=== PATIENT | female | born 1945 | race Caucasian/White ===

== ENCOUNTER → 2016-03-02 | Outpatient (CLI) | payer MEDICARE, BC ==
--- NOTE | 2016-03-02 15:16 | US ---
EXAMINATION TYPE: US venous doppler duplex LE LT DATE OF EXAM: 03/02/2016 2:38 PM COMPARISON: 11/04/2015 CLINICAL HISTORY: LLE I82.409 Thrombosis. SIDE PERFORMED: Left VESSELS IMAGED: External Iliac Vein (EIV) Common Femoral Vein Deep Femoral Vein Greater Saphenous Vein * Femoral Vein Popliteal Vein Small Saphenous Vein * Proximal Calf Veins (* superficial vessels) TECHNOLOGIST IMPRESSION: Left Leg: +Positive for DVT. Thready flow noted femoral vein upper extending into popliteal vein wit h partial compression noted, non-occlusive thrombus Preliminary results given to Karin at end of exam IMPRESSION: 1. Findings compatible with deep venous thrombosis left lower extremity femoral vein extending into t he popliteal vein.
== END | disposition home or self-care (01) ==
LOC: RADUSWWP 14:08
PROVIDERS: ATTEND Family Medicine
DX: I82.412 Acute embolism and thrombosis of left femoral vein (principal); I82.432 Acute embolism and thrombosis of left popliteal vein

== ENCOUNTER → 2016-07-08 | Outpatient (CLI) | payer MEDICARE, BC ==
--- NOTE | 2016-07-09 11:30 | MM ---
Reason for exam: screening (asymptomatic). Last mammogram was performed 2 years and 4 months ago. History: Patient is postmenopausal. Family history of breast cancer in paternal cousin. Physical Findings: A clinical breast exam by your physician is recommended on an annual basis and results should be correlated with mammographic findings. MG 3D Screening Mammo W/Cad Bilateral CC, MLO, and XCCL view(s) were taken. Prior study comparison: March 13, 2014, mammogram, performed at [facility]. October 07, 2012, mammogram, performed at [facility]. The breast tissue is heterogeneously dense. This may lower the sensitivity of mammography. No significant changes when compared with prior studies. ASSESSMENT: Benign, BI-RAD 2 RECOMMENDATION: Routine screening mammogram of both breasts in 1 year.
== END | disposition home or self-care (01) ==
LOC: RADMAMWWP 08:34
PROVIDERS: ATTEND Family Medicine
DX: Z12.31 Encounter for screening mammogram for malignant neoplasm of breast (principal)
CPT/HCPCS: 77063; G0202

== ENCOUNTER → 2016-07-23 | Outpatient (CLI) | payer MEDICARE, BC ==
--- NOTE | 2016-07-23 12:04 | US ---
EXAMINATION TYPE: US abdomen complete DATE OF EXAM: 07/23/2016 COMPARISON: NONE CLINICAL HISTORY: Ventral hernia without obstruction K43.9. RLQ pain x 1 month, history of cholecyste ctomy EXAM MEASUREMENTS: Liver Length: 14.0 cm Gallbladder Wall: surgically absent CBD: 0.4 cm Spleen: 11.1 cm Right Kidney: 9.9 x 5.2 x 4.5 cm Left Kidney: 8.9 x 4.7 x 5.3 cm Pancreas: obscured by overlying midline bowel gas Liver: scanned intercostally, limited by rib shadowing, otherwise wnl Gallbladder: surgically absent Evidence for sonographic Hastings's sign: no CBD: visualized portions wnl, limited by overlying bowel gas Spleen: wnl Right Kidney: 0.5cm echogenic focus mid pole Left Kidney: located in left pelvis, 1.4cm indeterminate area superior pole, multiple echogenic foci throughout with largest measuring 0.7cm Upper IVC: wnl Abd Aorta: wnl Scanned RLQ area of pain: no abnormality seen at this time IMPRESSION: 1. There is severe pelvic left kidney with multiple echogenic foci suggestive of multiple renal stone s but no hydronephrosis. 1.4 cm indeterminate lesion superior pole. 2. Postcholecystectomy. 3. Nonobstructing 5 mm right renal calculus
== END | disposition home or self-care (01) ==
LOC: RADUSWWP 10:15
PROVIDERS: ATTEND Family Medicine
DX: N20.0 Calculus of kidney (principal); N28.9 Disorder of kidney and ureter, unspecified; Z90.49 Acquired absence of other specified parts of digestive tract
CPT/HCPCS: 76700

== ENCOUNTER → 2016-08-24 | Outpatient (CLI) | payer MEDICARE, BC ==
--- NOTE | 2016-08-24 09:56 | XR ---
EXAMINATION TYPE: XR KUB DATE OF EXAM: 08/24/2016 COMPARISON: NONE HISTORY: Pain TECHNIQUE: Single supine KUB image of the abdomen is obtained FINDINGS: Small bowel demonstrates no evidence for dilatation or air fluid levels. Gas and fecal material is seen in non-distended colon. No convincing evidence for pneumoperitoneum. No unusual calcifications. The lung bases are clear. The osseous structures are intact. IMPRESSION: 1. Overall nonobstructive bowel gas pattern.
== END ==
LOC: RADXRMAIN 09:26
PROVIDERS: ATTEND Physician Assistant
DX: N20.0 Calculus of kidney (principal)
CPT/HCPCS: 74000

== ENCOUNTER → 2017-02-25 | Outpatient (CLI) | payer MEDICARE, BC ==
--- NOTE | 2017-02-25 15:11 | MR ---
EXAMINATION TYPE: MR shoulder LT wo con DATE OF EXAM: 02/25/2017 2:30 PM COMPARISON: NONE HISTORY: Left shoulder pain TECHNIQUE: Multiplanar multispin echo imaging of the left shoulder was performed. FINDINGS: Rotator cuff : Thickening and heterogeneity of the supraspinatus tendon compatible with chronic tendi nopathy. Partial intrasubstance and undersurface tear noted. No evidence for full-thickness tear or r etracted tear. Remaining constituents of the rotator cuff are intact. Bursa: No bursal effusion or thickening is seen. Musculature: There is no muscular tear, contusion, or atrophy. Acromioclavicular joint : Subacromial spurring with the lateral downsloping of the acromion resulting in moderate subacromial impingement. Mild AC joint arthropathy. Osseous structures : There are no fractures or regions of abnormal bone marrow signal intensity. Long biceps tendon : The biceps tendon is normally situated within the bicipital groove. No complete or partial biceps tendon tear is present. Glenohumeral Joint fluid : Small joint effusion noted. Cartilage and Bone : No focal hyaline cartilage defects are noted. No Hill-Sachs, reverse Hill-Sachs, or bony Bankart lesions are seen. Labrum : There are no SLAP or soft tissue Bankart lesions. No paralabral cysts are seen. OTHER FINDINGS : none IMPRESSION: 1. Thickening and heterogeneity of the supraspinatus tendon compatible with chronic tendinopathy. Par tial intrasubstance and undersurface tear noted. No full-thickness retracted tear. Moderate subacromi al impingement.
== END | disposition home or self-care (01) ==
LOC: RADMRIMAIN 13:35
PROVIDERS: ATTEND Family Medicine
DX: M75.102 Unspecified rotator cuff tear or rupture of left shoulder, not specified as traumatic (principal); M25.812 Other specified joint disorders, left shoulder

== ENCOUNTER → 2017-07-15 | Outpatient (CLI) | payer MEDICARE, BC ==
[~2017-07-15] MED LIST: DENOSUMAB 60 MG/ML 1 ML SYRINGE SQ ONE
[2017-07-15 10:21] VITALS: BP 119/71; PULSE 70; RESP 16; TEMP 97.7
== END | disposition home or self-care (01) ==
LOC: PROCWHC3 09:35
PROVIDERS: ATTEND Family Medicine
DX: M81.0 Age-related osteoporosis without current pathological fracture (principal)
CPT/HCPCS: 96372; J0897

== ENCOUNTER → 2017-08-26 | Outpatient (CLI) | payer MEDICARE, BC ==
--- NOTE | 2017-08-30 09:56 | MM ---
Reason for exam: screening (asymptomatic). Last mammogram was performed 1 year and 2 months ago. History: Patient is postmenopausal. Family history of breast cancer in paternal cousin. Physical Findings: A clinical breast exam by your physician is recommended on an annual basis and results should be correlated with mammographic findings. MG 3D Screening Mammo W/Cad Bilateral CC and MLO view(s) were taken. Prior study comparison: July 08, 2016, bilateral MG 3d screening mammo w/cad. March 13, 2014, mammogram, performed at [place]. The breast tissue is heterogeneously dense. This may lower the sensitivity of mammography. No suspicious abnormality. No significant changes when compared with prior studies. ASSESSMENT: Negative, BI-RAD 1 RECOMMENDATION: Routine screening mammogram of both breasts in 1 year.
== END | disposition home or self-care (01) ==
LOC: RADMAMWWP 09:42
PROVIDERS: ATTEND Family Medicine
DX: Z12.31 Encounter for screening mammogram for malignant neoplasm of breast (principal)
CPT/HCPCS: 77063; 77067

== ENCOUNTER → 2017-09-03 | Outpatient (CLI) | payer MEDICARE, BC ==
--- NOTE | 2017-09-03 15:27 | US ---
EXAMINATION TYPE: US kidneys/renal and bladder DATE OF EXAM: 09/03/2017 COMPARISON: US CLINICAL HISTORY: N39.0 UTI. EXAM MEASUREMENTS: Right Kidney: 10.2 x 4.2 x 5.2 cm Left Kidney: 8.5 x 4.6 x 3.9 cm Right Kidney: Lower lateral cyst measures 1.7 x 2.1 x 2.0 cm Left Kidney: Pelvic kidney, upper pole cyst measures 1.2 x 1.0 x 1.1 cm. Bladder: wnl Bilateral Jets seen: Yes There is no evidence for hydronephrosis at this point in time. No nephrolithiasis is seen. The urin monica bladder is anechoic. Bilateral ureteral jets are seen. IMPRESSION: 1. The previously seen indeterminate left renal lesion demonstrates increased through transmission on today's examination and appears as a simple cyst measuring up to 1.2 cm. 2. Right renal cyst. 3. Redemonstration of a left pelvic kidney. 4. No discrete abnormality within the urinary bladder. 5. The previously seen bilateral renal calculi are not well visualized on today's examination. No hyd ronephrosis of either kidney.
== END | disposition home or self-care (01) ==
LOC: RADUSWWP 14:42
PROVIDERS: ATTEND Family Medicine
DX: N28.1 Cyst of kidney, acquired (principal); Q63.2 Ectopic kidney
CPT/HCPCS: 76770

== ENCOUNTER → 2017-09-08 | Outpatient (CLI) | payer MEDICARE, BC ==
[2017-09-08 11:56] LABS: Magnesium 1.9 mg/dL (1.6-2.3)
== END | disposition home or self-care (01) ==
LOC: LABWHC1 11:17
PROVIDERS: ATTEND Nurse Practitioner Adult Health
DX: R25.2 Cramp and spasm (principal)
CPT/HCPCS: 36415; 82550; 83735; 85379

== ENCOUNTER → 2017-09-09 | Outpatient (CLI) | payer MEDICARE, BC ==
--- NOTE | 2017-09-09 15:36 | US ---
EXAMINATION TYPE: US venous doppler duplex LE LT DATE OF EXAM: 09/09/2017 9:44 AM COMPARISON: 03/02/2016 CLINICAL HISTORY: Left Lower Ext, Pain and Swelling R79.1. SIDE PERFORMED: Left TECHNIQUE: The lower extremity deep venous system is examined utilizing real time linear array sonog eugenio with graded compression, doppler sonography and color-flow sonography. VESSELS IMAGED: External Iliac Vein (EIV) Common Femoral Vein Deep Femoral Vein Greater Saphenous Vein * Femoral Vein Popliteal Vein Small Saphenous Vein * Proximal Calf Veins (* superficial vessels) Left Leg: Proximal femoral v only partially compressible. Flow is thready there. Chronic changes, se en previously as well. Results phoned to Damir Reinoso NP immediately following exam. IMPRESSION: 1. Chronic left lower extremity venous thrombosis within the proximal femoral vein.
== END | disposition home or self-care (01) ==
LOC: RADUSWWP 09:03
PROVIDERS: ATTEND Family Medicine
DX: I82.512 Chronic embolism and thrombosis of left femoral vein (principal)

== ENCOUNTER → 2017-09-14 | Outpatient (CLI) | payer MEDICARE, BC ==
--- NOTE | 2017-09-14 16:30 | XR ---
EXAMINATION TYPE: XR ribs RT DATE OF EXAM: 09/14/2017 COMPARISON: None HISTORY: Pleural dyspnea TECHNIQUE: 2 view right ribs FINDINGS: No displaced fractures are evident. There is an old fracture of the fourth posterior latera l rib. Costochondral cartilage calcification is present. IMPRESSION: 1. No acute osseous abnormality evident.
== END | disposition home or self-care (01) ==
LOC: RADXRMAIN 14:30
PROVIDERS: ATTEND Family Medicine
DX: R07.81 Pleurodynia (principal)

== ENCOUNTER → 2017-10-05 | Outpatient (CLI) | payer MEDICARE, BC ==
--- NOTE | 2017-10-05 10:26 | MR ---
EXAMINATION TYPE: MR lspine/sacrum wo con DATE OF EXAM: 10/05/2017 COMPARISON: CT abdomen pelvis dated 11/13/2015 HISTORY: Pain TECHNIQUE: Multiplanar, multisequence imaging of the lumbar spine is performed without IV contrast. FINDINGS: There is a spinal curvature present. Multilevel spondylosis is present with endplate discog enic marrow signal change. Loss of disc height and signal is greatest at L1-2, associated vacuum phen omenon. Mild anterior wedging is present at T12, there is resultant accentuation of kyphosis, lumbar spine shows accentuated lordosis. The conus is at T12-L1 shows an unremarkable appearance. L5-S1: Minimal posterior broad-based disc bulge is noted, no significant central stenosis or foramina l encroachment. There is facet arthropathy change. L4-5: Posterior broad-based disc bulge causes minimal anterior mass effect on the thecal sac. There i s no significant foraminal encroachment or central stenosis. There is some facet arthropathy with hyp ertrophy of the ligamentum flavum causing some posterior lateral mass effect on the thecal sac. L3-4: Posterior broad-based disc bulge causes mild anterior mass effect on the thecal sac. There is s ome mild facet arthropathy. No significant foraminal encroachment or central stenosis. L2-3: Minimal retrolisthesis L2 on L3. Facet arthropathy with fragility ligamentum flavum causes some posterior lateral mass effect on the thecal sac. Circumferential extension endplate disc complex res ults in some foraminal encroachment on the right. L1-2: Posterior broad-based disc bulge causes minimal anterior mass effect sac. No significant centra l stenosis or foraminal encroachment. Incidental note made of a pelvic kidney on the left. Cortical cysts associated with the right kidney midpole measuring 8 mm, laterally at the lower pole measuring approximately 2 cm. Retroaortic left re nal vein is noted. IMPRESSION: Degenerative disc disease, facet arthropathy, scoliosis and additional findings above. No significant spinal stenosis. Sacrum MRI: Patient's pelvic kidney shows associated cystic change and is somewhat dysmorphic but inc ompletely evaluated. Possible hydrosalpinx noted the right fallopian tube. Suspect some possible smal l fibroid associated with the lower uterine segment, probable nabothian cyst. Sacrum shows normal marrow signal change. Sacroiliac joints are intact, there is no significant ankyl osis, degenerative change, erosion evident. IMPRESSION: Findings in the pelvis as described. Pelvic kidney.
== END | disposition home or self-care (01) ==
LOC: RADMRIMAIN 06:34
PROVIDERS: ATTEND Nurse Practitioner Adult Health
DX: M51.27 Other intervertebral disc displacement, lumbosacral region (principal); M51.36 Other intervertebral disc degeneration, lumbar region; M43.16 Spondylolisthesis, lumbar region; M47.816 Spondylosis without myelopathy or radiculopathy, lumbar region; M46.97 Unspecified inflammatory spondylopathy, lumbosacral region; M41.86 Other forms of scoliosis, lumbar region; G89.29 Other chronic pain; M54.9 Dorsalgia, unspecified
CPT/HCPCS: 72148; 72195

== ENCOUNTER → 2018-01-12 | Outpatient (CLI) | payer MEDICARE, BC ==
[2018-01-12 12:35] LABS: Basophils % (A) 1 %; Eosinophils # (A) 0.3 k/uL (0-0.7); Eosinophils % (A) 5 %; HCT 38.1 % (34.0-46.0); HGB 12.1 gm/dL (11.4-16.0); Hypochromasia Slight; Lymphocytes # (A) 1.5 k/uL (1.0-4.8); Lymphocytes % (A) 30 %; MCH 29.7 pg (25.0-35.0); MCHC 31.8 g/dL (31.0-37.0); MCV 93.3 fL (80.0-100.0); Mean Platelet Volume 6.4; Monocytes # (A) 0.3 k/uL (0-1.0); Monocytes % (A) 6 %; Neutrophils # (A) 2.8 k/uL (1.3-7.7); Neutrophils % (A) 55 %; Platelet Count 307 k/uL (150-450); Poikilocytosis Slight; RBC 4.08 m/uL (3.80-5.40); RDW 13.8 % (11.5-15.5)
[2018-01-12 15:51] LABS: Albumin 4.2 g/dL (3.80-4.90); Anion Gap 8.7 mmol/L (4.00-12.00); Calcium 9.5 mg/dL (8.7-10.3); Carbon Dioxide 25.3 mmol/L (21.6-31.8); Globulin 2.1 g/dL (2.1-3.7); Potassium 3.9 mmol/L (3.5-5.5); Total Bilirubin 0.7 mg/dL (0.3-1.2); Total Protein 6.3 g/dL (6.2-8.2)
== END ==
LOC: LABWHC1 11:05
PROVIDERS: ATTEND Nurse Practitioner Adult Health
DX: M79.7 Fibromyalgia (principal); Z79.01 Long term (current) use of anticoagulants
CPT/HCPCS: 36415; 80053; 85025; 87086

== ENCOUNTER → 2018-01-19 | Outpatient (CLI) | payer MEDICARE, BC ==
[2018-01-19 10:23] VITALS: BP 182/96; PULSE 75; RESP 16; TEMP 97.9
== END | disposition home or self-care (01) ==
LOC: PROCWHC3 10:02
PROVIDERS: ATTEND Family Medicine
DX: M81.0 Age-related osteoporosis without current pathological fracture (principal)
CPT/HCPCS: 96372; J0897

== ENCOUNTER → 2018-07-28 | Outpatient (CLI) | payer MEDICARE, BC ==
[2018-07-28 11:08] VITALS: BP 144/83; PULSE 90; RESP 18; TEMP 98.2
== END | disposition home or self-care (01) ==
LOC: PROCWHC3 10:39
PROVIDERS: ATTEND Family Medicine
DX: M81.0 Age-related osteoporosis without current pathological fracture (principal)
CPT/HCPCS: 96372; J0897

== ENCOUNTER → 2018-08-15 | Outpatient (CLI) | payer MEDICARE, BC ==
--- NOTE | 2018-08-15 12:10 | US ---
EXAMINATION TYPE: US pelvis complete transvag DATE OF EXAM: 08/15/2018 COMPARISON: NONE CLINICAL HISTORY: 73-year-old female with right lower Quadrant Pain R10.31. No previous pelvic surger ies. RLQ pain x 19 years. TECHNIQUE: Transabdominal sonographic images of the pelvis were acquired. Transvaginal sonographic images were medically necessary to better assess the following anatomy: Endometrium and ovaries Date of LMP: EXPRESSIVE MUSIC THERAPIST, FINDINGS: EXAM MEASUREMENTS: Uterus: 6.1 x 3.9 x 2.4 cm Endometrial Stripe: 0.1 cm 1. Uterus: Anteverted Heterogenous with peripheral nonshadowing echogenic foci, likely vascular of the arcuate arteries. 2. Endometrium: wnl 3. Right Ovary: Obscured by overlying bowel gas 4. Left Ovary: Obscured by overlying bowel gas 5. Bilateral Adnexa: wnl 6. Posterior cul-de-sac: no free fluid, loops of bowel visualized IMPRESSION: 1. And endometrial stripe 11 mm. 2. Neither ovary could be visualized probably due to small, postmenopausal size. 3. No pelvic free fluid.
--- NOTE | 2018-08-15 12:16 | US ---
EXAMINATION TYPE: US abdomen complete DATE OF EXAM: 08/15/2018 COMPARISON: None CLINICAL HISTORY: 73-year-old female with right lower Quadrant Pain R10.31. GB removed, RLQ pain x 19 years TECHNIQUE: Multiple sonographic images of the abdomen are obtained. FINDINGS: EXAM MEASUREMENTS: Liver Length: 12.9 cm Spleen: 8.5 cm Right Kidney: 9.6 x 5.0 x 4.4 cm Left Kidney: 8.1 x 4.4 x 3.9 cm Pancreas: Obscured by bowel gas Liver: Left lobe not well visualized due to overlying bowel gas. Scanned through ribs due to overly ing bowel gas Gallbladder: Surgically absent Evidence for sonographic Hastings's sign: neg CBD: Obscured by overlying bowel gas Spleen: wnl Right Kidney: Lower pole cyst measures 2.1 cm. No hydronephrosis. Left Kidney: Located in left pelvis. Appears lobular in appearance and smaller in size compared to contralateral kidney. Medial anechoic lesion seen at hilum - 1.3 x 1.8 x 1.1 cm. Upper pole cystic a ppearing lesion - 1.4 x 1.2 x 0.9 cm Upper IVC: limited visualization Abd Aorta: Proximal and mid portion obscured by overlying bowel gas. IMPRESSION: 1. Limitations due to bowel gas and some intercostal scanning that was needed. 2. Known pelvic left kidney with slightly lobulated/dysmorphic appearance and associated cysts measur ing up to 1.8 cm. 3. Status post cholecystectomy. The bile duct was obscured and not assessed on this exam.
== END | disposition home or self-care (01) ==
LOC: RADUSWWP 07:25
PROVIDERS: ATTEND Internal Medicine Gastroenterology
DX: N28.1 Cyst of kidney, acquired (principal); R10.31 Right lower quadrant pain; Z90.49 Acquired absence of other specified parts of digestive tract
CPT/HCPCS: 76700; 76830; 76856

== ENCOUNTER 2018-08-19 11:24 | Day surgery (SDC) | payer MEDICARE, BC ==
[2018-08-17 14:10] VITALS: BMI 29.7
[~2018-08-19 11:24] MED LIST changes: -DENOSUMAB 60 MG/ML 1 ML SYRINGE SQ ONE; +LACTATED RINGERS 1,000 ML IV SCH
[2018-08-19 12:16] VITALS: TEMP 98.2
[2018-08-19] MEDS ORDERED: LIDOCAINE 1% 20 ML VIAL (10MG/ML) FOR IV START INTRADERMA ONE (12:26)
[2018-08-19] MEDS ORDERED: PROPOFOL 10 MG/ML 20 ML VIAL IV ONE (12:44)
--- NOTE | 2018-08-19 13:27 | P.PCN ---
Date of Procedure: 08/19/18 Procedure(s) Performed: BRIEF HISTORY: Patient is a 73-year-old pleasant white female, scheduled for an elective colonoscopy as a part of evaluation of right lower quadrant pain of several years duration. She has intermittent episodes of happens once or twice a month. PROCEDURE PERFORMED: Colonoscopy. PREOPERATIVE DIAGNOSIS: Right lower quadrant abdominal. IV sedation per Anesthesia. PROCEDURE: After informed consent was obtained, the patient, was brought into the endoscopy unit. IV sedation was administered by Anesthesia under continuous monitoring. Digital rectal examination was normal. Initially the Olympus CF-160 flexible video colonoscope was then inserted in the rectum, gradually advanced into the cecum without any difficulty. Careful examination was performed as the scope was gradually being withdrawn. Ileocecal valve and the appendiceal orifice were visualized and appeared normal. Prep was excellent. Mucosa of the cecum, ascending colon, transverse colon, descending colon, sigmoid colon, and rectum appeared normal. Scattered left-sided diverticulosis. Retroflexion was per formed in the rectum and no lesions were seen. The patient tolerated the procedure well. IMPRESSION: Normal-appearing colon from rectum to cecum with no evidence of colorectal neoplasia Scattered sigmoid diverticulosis . RECOMMENDATIONS: Findings of this examination were discussed with the patient well as her family. She was advised to have a repeat screening colonoscopy in 10 years..
[2018-08-19 13:29] VITALS: BP 122/76; PULSE 64; RESP 16
== END 2018-08-19 13:54 | disposition home or self-care (01) ==
LOC: ORWHC2ENDO 11:24
PROVIDERS: ATTEND Internal Medicine Gastroenterology
DX: K57.30 Diverticulosis of large intestine without perforation or abscess without bleeding (principal); I10 Essential (primary) hypertension; E78.5 Hyperlipidemia, unspecified; K58.9 Irritable bowel syndrome, unspecified; Z90.49 Acquired absence of other specified parts of digestive tract; Z79.891 Long term (current) use of opiate analgesic; Z79.899 Other long term (current) drug therapy; Z88.8 Allergy status to other drugs, medicaments and biological substances; Z91.09 Other allergy status, other than to drugs and biological substances
CPT/HCPCS: 45378; J2704

== ENCOUNTER → 2018-08-29 | Outpatient (CLI) | payer MEDICARE, BC ==
--- NOTE | 2018-08-30 18:43 | BD ---
EXAMINATION TYPE: Axial Bone Density DATE OF EXAM: 08/29/2018 COMPARISON: NONE CLINICAL HISTORY: 73-year-old female age-related osteoporosis Height: 61.5 IN Weight: 165 FRAX RISK QUESTIONS: History of Fracture in Adulthood: YES ANKLE, HAND RISK FACTORS HISTORY OF: Spine Fracture: YES THORACIC EARLY 30'S Family History of Osteoporosis: YES Active: YES Postmenopausal woman: YES Take estrogen and/or progesterone medications: NOT NOW How lon YEARS IN HER 20'S Lost more than 2 inches in height since high school: YES PT 5'6" IN HIGH SCHOOL MEDICATIONS: Osteoporosis Medications: YES Which medication: Fosamax PROLIA How Lon OR 3 SHOTS Additional Medications: LOW DOSE STATIN, GABAPENTIN, LOSARTAN, POTASSIUM, METOPROLOL, CYCLOBENZAPRINE , TRAMADOL, ROPINIROLE EXAM MEASUREMENTS: Bone mineral densitometry was performed using the StuffBuff System. Bone mineral density as measured about the Lumbar spine is: ----- L1-L4(G/cm2): 1.083 T Score Values are as follows: ----- L2: -1.3 ----- L3: -1.2 ----- L4: -0.9 ----- L1-L4: -0.8 Bone mineral density BASELINE Bone mineral density about the R hip (g/cm2): 0.819 Bone mineral density about the L hip (g/cm2): 0.826 T Score values are as follows: -----R Neck: -1.6 -----L Neck: -1.5 -----R Total: -0.5 -----L Total: -0.2 Bone mineral density BASELINE IMPRESSION: Osteopenia (T Score between -2.5 and -1). There is slightly increased risk of fracture and the patient may be considered for treatment. Re-Screen 2-5 years. NOTE: T-SCORE=SD OF THE YOUNG ADULT MEAN.
--- NOTE | 2018-08-31 09:19 | MM ---
Reason for exam: screening (asymptomatic). Last mammogram was performed 1 year ago. History: Patient is postmenopausal. Family history of breast cancer in paternal cousin. Physical Findings: A clinical breast exam by your physician is recommended on an annual basis and results should be correlated with mammographic findings. MG 3D Screening Mammo W/Cad Bilateral CC and MLO view(s) were taken. Prior study comparison: August 26, 2017, bilateral MG 3d screening mammo w/cad. July 08, 2016, bilateral MG 3d screening mammo w/cad. The breast tissue is heterogeneously dense. This may lower the sensitivity of mammography. No suspicious abnormality. No significant changes when compared with prior studies. ASSESSMENT: Negative, BI-RAD 1 RECOMMENDATION: Routine screening mammogram of both breasts in 1 year.
== END | disposition home or self-care (01) ==
LOC: RADMAMWWP 11:10
PROVIDERS: ATTEND Family Medicine
DX: Z12.31 Encounter for screening mammogram for malignant neoplasm of breast (principal); M85.80 Other specified disorders of bone density and structure, unspecified site
CPT/HCPCS: 77063; 77067; 77080

== ENCOUNTER → 2018-12-22 | Outpatient (CLI) | payer MEDICARE, BC ==
--- NOTE | 2018-12-23 01:29 | MR ---
MRI CERVICAL SPINE: CLINICAL HISTORY: Dizziness TECHNIQUE: Multiplanar, multisequence imaging of the cervical spine is performed without IV contrast COMPARISON: None FINDINGS: The cervical vertebra have normal alignment. There is degenerative disc space narrowing in the cervic al spine mainly at C4-5 C5-6 with spurring of the endplates. Cervical spinal cord shows some subtle i ncreased signal in the posterior aspect of the cord at the C2-C3 disc level. There is no expansion. I see no spinal stenosis. There spinal canal measures 7.5 mm. There is no compression fracture. I see no bony destructive process. There is no evidence of a syrinx. The posterior elements are intact. I s ee no bony destructive process. IMPRESSION: Spondylotic changes as above. No spinal stenosis. No fracture. There is a 7 mm area of slight increased signal in the posterior aspect of the cervical spinal cord t hat is suggestive of demyelinating disease. MR scan of the brain. History multiple sclerosis. Dizziness. Off balance. Numbness in the hands. Comparison none. TECHNIQUE: Multiplanar multiecho imaging of the brain was performed without contrast. FINDINGS: There is some cerebral cortical atrophy. There is no mass effect nor midline shift. There is no evide nce of intracranial hemorrhage. Corpus callosum appears intact. There are a few view nodular foci of increased signal on the T2 and FLAIR images around the lateral ventricles. These measure up to 9 mm a nd the total number is approximately 15. The brainstem is intact. Cerebellum is intact. There is incr eased signal at the white matter around the occipital horns of the lateral ventricles. White matter l esions are more on the right side compared to the left. The sella turcica appears normal. There is no evidence of a sellar mass. IMPRESSION: No evidence of cortical infarct. Mild to moderate cerebral cortical atrophy. Multiple white matter lesions predominantly around the lateral ventricles are suggestive of demyelina ting disease.
== END | disposition home or self-care (01) ==
LOC: RADMRIMAIN 15:36
PROVIDERS: ATTEND Psychiatry & Neurology Neurology
DX: G31.9 Degenerative disease of nervous system, unspecified (principal); R90.82 White matter disease, unspecified; G35 Multiple sclerosis
CPT/HCPCS: 70551; 72141

== ENCOUNTER → 2019-03-15 | Outpatient (CLI) | payer MEDICARE, BC ==
--- NOTE | 2019-03-15 09:41 | USB ---
Reason for exam: clinical finding. History: Patient is postmenopausal. Family history of breast cancer in paternal cousin. Indicated problem(s): pain in the right breast. Physical Findings: Nurse Summary: right breast pain x 1 month, sharp, stabbing, aches (nurse kp). US Breast RT Right complete breast ultrasound includes all four quadrants, the retroareolar region and axilla. Finding demonstrates no cystic or solid lesion seen. No suspicious abnormality. These results were verbally communicated with the patient and result sheet given to the patient on 03/15/19. ASSESSMENT: Negative, BI-RAD 1 RECOMMENDATION: Return to routine screening mammogram schedule for both breasts. Back on schedule for August 2019.
== END | disposition home or self-care (01) ==
LOC: RADUSWWP 08:39
PROVIDERS: ATTEND Family Medicine
DX: N64.4 Mastodynia (principal)

== ENCOUNTER → 2019-08-04 | Outpatient (CLI) | payer MEDICARE, BC ==
--- NOTE | 2019-08-05 02:27 | MR ---
EXAMINATION TYPE: MR lumbar spine wo con DATE OF EXAM: 08/04/2019 COMPARISON: 10/05/2017 HISTORY: Sharp pains in Feet up into Legs. Chronic Lower Back Pain. MS History Exam performed with no contrast. There is a mild kyphotic deformity at the thoracolumbar junction with 25% anterior wedging of T12 maddie tebral body. Fracture appears old. There is no significant disc space narrowing of the lumbar spine. I see no acute fracture. There is developmentally adequate spinal canal. There is no spinal stenosis. There is no lumbar paraspinal mass. Posterior elements are intact. The lumbar nerve roots appear nor mal. The neural foramina are fairly well-maintained. I see no bony destructive process. The visualize d sacroiliac joints appear intact. IMPRESSION: Old mild T12 compression fracture. No acute abnormality of the lumbar spine. No spinal stenosis or edie mbar disc herniation.
== END | disposition home or self-care (01) ==
LOC: RADMRIMAIN 17:49
PROVIDERS: ATTEND Psychiatry & Neurology Neurology
DX: M48.54XA Collapsed vertebra, not elsewhere classified, thoracic region, initial encounter for fracture (principal); G35 Multiple sclerosis
CPT/HCPCS: 72148

== ENCOUNTER → 2019-10-11 | Outpatient (CLI) | payer MEDICARE, BC ==
--- NOTE | 2019-10-12 10:53 | MM ---
Reason for exam: screening (asymptomatic). Last mammogram was performed 1 year and 1 month ago. History: Patient is postmenopausal. Family history of breast cancer in paternal cousin. Taking estrogen for 1 month. Physical Findings: A clinical breast exam by your physician is recommended on an annual basis and results should be correlated with mammographic findings. MG 3D Screening Mammo W/Cad Bilateral CC, MLO, and XCCL view(s) were taken. Prior study comparison: August 29, 2018, bilateral MG 3d screening mammo w/cad. August 26, 2017, bilateral MG 3d screening mammo w/cad. The breast tissue is heterogeneously dense. This may lower the sensitivity of mammography. There is no discrete abnormality. No significant changes when compared with prior studies. ASSESSMENT: Negative, BI-RAD 1 RECOMMENDATION: Routine screening mammogram of both breasts in 1 year.
== END | disposition home or self-care (01) ==
LOC: RADMAMWWP 10:47
PROVIDERS: ATTEND Family Medicine
DX: Z12.31 Encounter for screening mammogram for malignant neoplasm of breast (principal)
CPT/HCPCS: 77063; 77067

== ENCOUNTER → 2019-10-24 | Outpatient (CLI) | payer MEDICARE, BC ==
--- NOTE | 2019-10-24 15:52 | US ---
EXAMINATION TYPE: US kidneys/renal and bladder DATE OF EXAM: 10/24/2019 COMPARISON: 08/15/2018 CLINICAL HISTORY: 74-year-old female N39.0 RECURRENT UTI. TECHNIQUE: Multiple sonographic images of the kidneys and bladder are obtained. FINDINGS: EXAM MEASUREMENTS: Right Kidney: 10.9 x 5.1 x 3.9 cm Left Kidney: 8.6 x 4.8 x 4.1 cm Right Kidney: Lateral, lower pole cyst = 2.5 x 2.1 x 1.9 cm . Some cortical thinning suggesting chron ic medical renal disease. No hydronephrosis. Left Kidney: Small in size, ectopic , located in the left side of the pelvis. Multiple stones seen wi th shadowing. Upper pole cyst = 2.0 x 1.8 x 1.6 cm. Lobulated contour. No hydronephrosis. Bladder: Incomplete distention limited evaluation. Bilateral Jets seen: Yes Normal Post Void Residual: Not calculated. Not fully distended. IMPRESSION: 1. Ectopic low lying left kidney. Lobulated left renal contour. Underlying nephrolithiasis suggested. 2. No hydronephrosis seen on either side. A couple benign cysts measuring up to 2.5 cm noted. 3. Underdistention of the bladder limits its evaluation.
== END | disposition home or self-care (01) ==
LOC: RADUSWWP 12:41
PROVIDERS: ATTEND Obstetrics & Gynecology
DX: N39.0 Urinary tract infection, site not specified (principal); N28.89 Other specified disorders of kidney and ureter; N32.89 Other specified disorders of bladder
CPT/HCPCS: 76770

== ENCOUNTER 2019-12-06 11:35 | Day surgery (SDC) | payer MEDICARE, BC ==
[2019-12-04 15:47] VITALS: BMI 29.4
[~2019-12-06 11:35] MED LIST changes: +HYDROmorphone 0.5 MG/0.5 ML SYRINGE IVP PRN; +ONDANSETRON 4 MG/2 ML VIAL IVP PRN; +fentaNYL (PF) 50 MCG/ML 2 ML AMP IV PRN
[2019-12-06] MEDS ORDERED: ONDANSETRON 4 MG/2 ML VIAL ONE (11:49)
[2019-12-06] MEDS ORDERED: LIDOCAINE 1% (10MG/ML) FOR IV START INTRADERMA ONE (12:20)
[2019-12-06] MEDS ORDERED: PHENAZOPYRIDINE 200 MG TAB PO STA (12:27)
[2019-12-06] MEDS ORDERED: ePHEDrine SULFATE/0.9% NACL/PF 50 MG/5 ML SYRINGE IV ONE (12:51)
[2019-12-06] MEDS ORDERED: PROPOFOL 10 MG/ML 20 ML VIAL IV ONE (12:51)
[2019-12-06] MEDS ORDERED: LIDOCAINE 1% INJ 10MG/ML (20 ML MDV) ONE (12:51)
[2019-12-06] MEDS ORDERED: FUROSEMIDE 10 MG/ML 2 ML VIAL ONE (12:51)
[2019-12-06] MEDS ORDERED: fentaNYL (PF) 50 MCG/ML 2 ML AMP ONE (12:51)
[2019-12-06] MEDS ORDERED: LIDOCAINE 0.5%-EPI 1:200,000 50 ML VIAL SQ ONE (13:35)
[2019-12-06] MEDS ORDERED: DEXTROSE 10% IN WATER 500 ML BAG IRRIGATION ONE (13:47)
[2019-12-06 14:22] VITALS: TEMP 97.6
--- NOTE | 2019-12-06 14:33 | P.OP ---
Date of Procedure: 12/06/19 Preoperative Diagnosis: PREOPERATIVE DIAGNOSES: 1. Mixed Incontinence (DI + SHALONDA) 2. Multiple Sclerosis 3. Left Pelvic Kidney 4. Left side Renal Stones POSTOPERATIVE DIAGNOSES: 1. Same PROCEDURE PERFORMED: TOT Sling. SURGEON: Ab Wilson MD RIPSAW OPERATOR: None ANESTHESIA: GA. IV FLUIDS: Crystalloids. BLOOD LOSS: 50 ml. DRAINS: Shaw catheter with clear urine at the end of the procedure. FINDINGS: Although ectopic location of left kidney (Pelvic kidney) --> left ureteral orifice in proper location SPECIMEN: None. COMPLICATIONS: None. DISPOSITION: Postanesthetic Care Unit. DESCRIPTION OF PROCEDURE: The patient was taken to the operating room. General anesthesia was administered. She was placed in dorsal lithotomy position, prep and drape done in sterile fashion. 10 mL of 0.5% Lidocaine with 1:200,000 strength epinephrine was injected into the anterior vaginal mucosa for hemostasis and to assist in dissection. A midline incision was made on the anterior vaginal mucosa overlying the mid-urethra. Allis clamps were placed on the edges and Metzenbaum scissors were used to separate the mucosa from the underlying tissue bilaterally to the Ischiopubic Rami. Next, a small incision was made in each groin at the Iliofemoral fold at the level of the clitoris just inferior to the tendinous insertion of the adductor longus muscle. With a vaginal finger to assist, the trocar needles were then passed through the groin incisions lateral to the inferior pubic ramus, passing through the obturator membrane, around the Ischiopubic Ramus to enter into the vagina lateral to the mid urethra. This was done bilaterally. The Proline mesh tape was then connected to the end of each needle and drawn back through the vaginal incision and out of the groin incision thereby placing the mesh under the mid urethra. Tension of the mesh was adjusted and the plastic sheath over the mesh was then removed. The ends of the mesh at the groin incisions were trimmed below the skin surface. The vaginal incision was then closed using a 2-0 Vicryl in a running locking fashion. The groin incisions were then closed using an interrupted 4-0 Vicryl suture. Cystourethroscopy was performed verifying no injury to the urethra and bladder. Both ureters were found to be functioning well with good efflux bilaterally with the help of PO Pyridium Dye and 10 mg of IV Lasix. The patient tolerated the procedure well and was sent to postanesthetic recovery room is good condition Condition: stable Disposition: same day
[2019-12-06 16:01] VITALS: RESP 18
[2019-12-06 16:02] VITALS: BP 130/82; PULSE 63
== END 2019-12-06 16:47 | disposition home or self-care (01) ==
LOC: OR 11:35
PROVIDERS: ATTEND Obstetrics & Gynecology
DX: N39.46 Mixed incontinence (principal); N20.0 Calculus of kidney; G35 Multiple sclerosis; Q63.2 Ectopic kidney; I10 Essential (primary) hypertension; E78.5 Hyperlipidemia, unspecified; K58.9 Irritable bowel syndrome, unspecified; G43.909 Migraine, unspecified, not intractable, without status migrainosus; G89.29 Other chronic pain; M54.9 Dorsalgia, unspecified; M81.0 Age-related osteoporosis without current pathological fracture; Z79.899 Other long term (current) drug therapy; Z88.1 Allergy status to other antibiotic agents; Z91.041 Radiographic dye allergy status; Z88.8 Allergy status to other drugs, medicaments and biological substances; Z87.440 Personal history of urinary (tract) infections; Z87.19 Personal history of other diseases of the digestive system; Z90.49 Acquired absence of other specified parts of digestive tract; Z86.718 Personal history of other venous thrombosis and embolism; Z98.49 Cataract extraction status, unspecified eye; Z98.890 Other specified postprocedural states; Z80.0 Family history of malignant neoplasm of digestive organs; Z82.62 Family history of osteoporosis
CPT/HCPCS: 57288; C1771; J1940; J0690; J2405; J2001; J3010; J2704

== ENCOUNTER 2020-06-23 00:35 | Inpatient (IN) | payer MEDICARE, BC ==
[2020-06-23] MEDS ORDERED: ACETAMINOPHEN TAB 325 MG TAB PO STA (00:59)
[2020-06-23] MEDS ORDERED: cefTRIAXone IN SWFI 1,000 MG/10 ML SYRINGE IVP ONE (01:00)
--- NOTE | 2020-06-23 02:32 | ED ---
Weakness HPI - General Chief complaint: Weakness Stated complaint: weakness Time Seen by Provider: 06/23/20 00:40 Source: patient, EMS Mode of arrival: EMS Limitations: no limitations - History of Present Illness Initial comments: 74-year-old female presenting to the emergency department for lower extremity weakness. Patient states that she has MS and has been feeling weak and tired lately. She states that for the past few days she has had what feels a foot drop in her left foot that her right foot and now she states she feels like she has bilateral lower extremity weakness she states she altogether feels weak she denies any headaches eye pain, sensation deficits, speech changes, vision loss, diplopia, chest pain, dyspnea. Patietn denies cough, urinary symptoms. Patient denies nausea, vomiting, sore throat, ear pain, rashes, diarrhea. Patient denies skin redness. pt denies current treatment with immunomodulators or steroids for her multiple sclerosis. Patient states she is taking gabapentin. Patient upon arrival is found to be febrile. - Related Data Home Medications Medication Instructions Recorded Confirmed Eletriptan [Relpax] 40 mg PO DAILY PRN 11/07/15 06/23/20 traMADol HCL [Ultram] 50 mg PO DAILY PRN 01/09/16 06/23/20 Gabapentin 800 mg PO TID 07/15/17 06/23/20 Denosumab [Prolia] 60 mg SQ Q180D 08/17/18 06/23/20 Trospium Chloride [Sanctura XR] 60 mg PO DAILY 12/04/19 06/23/20 Meclizine [Antivert] 25 mg PO TID PRN 06/23/20 06/23/20 Meloxicam [Mobic] 15 mg PO DAILY 06/23/20 06/23/20 tiZANidine HCL 2 mg PO Q6H PRN 06/23/20 06/23/20 Allergies Allergy/AdvReac Type Severity Reaction Status Date / Time carbamazepine [From Tegretol] Allergy Nausea Verified 06/23/20 09:53 ciprofloxacin [From Cipro] Allergy lt leg pain Verified 06/23/20 09:53 iodine Allergy Rash/Hives Verified 06/23/20 09:53 tropicamide [From Mydriacyl] Allergy Itching Verified 06/23/20 09:53 fosinopril AdvReac Cough Verified 06/23/20 09:53 lisinopril AdvReac Cough Verified 06/23/20 09:53 topiramate [From Topamax] AdvReac Nausea & Verified 06/23/20 09:53 Vomiting & Diarrhea Review of Systems ROS Statement: Those systems with pertinent positive or pertinent negative responses have been documented in the HPI. ROS Other: All systems not noted in ROS Statement are negative. Past Medical History Past Medical History: Deep Vein Thrombosis (DVT), Hyperlipidemia, Hypertension, Pneumonia, Pulmonary Embolus (PE) Additional Past Medical History / Comment(s): ruptured bowel 06/2015. LEFT LEG DVT. RLS, urinary leakage. MS History of Any Multi-Drug Resistant Organisms: None Reported Past Surgical History: Bowel Resection, Cholecystectomy, Hernia Repair, Joint Replacement, Orthopedic Surgery Additional Past Surgical History / Comment(s): L KNEE replacement. RIGHT SHOULDER SURGERY, rt knee meniscus, colostomy reversal, ptosis tigist, cataract tigist with lens implants Past Anesthesia/Blood Transfusion Reactions: No Reported Reaction Past Psychological History: No Psychological Hx Reported Smoking Status: Never smoker Past Alcohol Use History: None Reported Past Drug Use History: None Reported - Past Family History Father Family Medical History: Cancer Mother Family Medical History: Cancer General Exam Limitations: no limitations Course Vital Signs 06/23/20 06/23/20 06/23/20 00:38 03:13 05:00 Temperature 101.7 F H 100.7 F H Pulse Rate 72 70 65 Respiratory 18 18 18 Rate Blood Pressure 114/51 120/54 98/53 O2 Sat by Pulse 95 95 96 Oximetry 06/23/20 06:53 Temperature 98.3 F Pulse Rate 65 Respiratory 18 Rate Blood Pressure 104/52 O2 Sat by Pulse 95 Oximetry - Reevaluation(s) Reevaluation #1: signed out to Dr Pierre 06/23/20 03:17 Medical Decision Making - Medical Decision Making cc weakness, unwell feeling. fever on arrival. UTI source. pt treated with IV abx.. cultures pending. Pt christin be admitted with neurology consultation due to suspected exacerbation of ms secondary to infectino. Dr Reynolds accetpted admission> Dr Pierre agreeable to care plan. - Lab Data Result diagrams: 06/23/20 00:58 06/23/20 00:58 Lab Results 06/23/20 06/23/20 06/23/20 Range/Units 00:58 00:58 00:58 WBC 6.9 (3.8-10.6) k/uL RBC 3.62 L (3.80-5.40) m/uL Hgb 11.6 (11.4-16.0) gm/dL Hct 32.8 L (34.0-46.0) % MCV 90.6 (80.0-100.0) fL MCH 32.0 (25.0-35.0) pg MCHC 35.3 (31.0-37.0) g/dL RDW 12.4 (11.5-15.5) % Plt Count 127 L (150-450) k/uL MPV 7.8 Neutrophils % 73 % Lymphocytes % 15 % Monocytes % 9 % Eosinophils % 1 % Basophils % 0 % Neutrophils # 5.0 (1.3-7.7) k/uL Lymphocytes # 1.0 (1.0-4.8) k/uL Monocytes # 0.6 (0-1.0) k/uL Eosinophils # 0.1 (0-0.7) k/uL Basophils # 0.0 (0-0.2) k/uL PT (9.0-12.0) sec INR (<1.2) APTT (22.0-30.0) sec Sodium 135 L (137-145) mmol/L Potassium 3.5 (3.5-5.1) mmol/L Chloride 99 (98-107) mmol/L Carbon Dioxide 28 (22-30) mmol/L Anion Gap 8 mmol/L BUN 21 H (7-17) mg/dL Creatinine 1.09 H (0.52-1.04) mg/dL Est GFR (CKD-EPI)AfAm 58 (>60 ml/min/1.73 sqM) Est GFR (CKD-EPI)NonAf 50 (>60 ml/min/1.73 sqM) Glucose 103 H (74-99) mg/dL Plasma Lactic Acid Rasta 1.0 (0.7-2.0) mmol/L Calcium 9.5 (8.4-10.2) mg/dL Magnesium 1.7 (1.6-2.3) mg/dL Total Bilirubin 1.5 H (0.2-1.3) mg/dL AST 31 (14-36) U/L ALT 11 (4-34) U/L Alkaline Phosphatase 75 (38-126) U/L Troponin I (0.000-0.034) ng/mL Total Protein 5.9 L (6.3-8.2) g/dL Albumin 3.5 (3.5-5.0) g/dL Urine Color Urine Appearance (Clear) Urine pH (5.0-8.0) Ur Specific [place] (1.001-1.035) Urine Protein (Negative) Urine Glucose (UA) (Negative) Urine Ketones (Negative) Urine Blood (Negative) Urine Nitrite (Negative) Urine Bilirubin (Negative) Urine Urobilinogen (<2.0) mg/dL Ur Leukocyte Esterase (Negative) Urine RBC (0-5) /hpf Urine WBC (0-5) /hpf Urine WBC Clumps (None) /hpf Ur Squamous Epith Cells (0-4) /hpf Urine Bacteria (None) /hpf Urine Mucus (None) /hpf Coronavirus (PCR) (Not Detectd) 06/23/20 06/23/20 06/23/20 Range/Units 01:23 01:23 01:23 WBC (3.8-10.6) k/uL RBC (3.80-5.40) m/uL Hgb (11.4-16.0) gm/dL Hct (34.0-46.0) % MCV (80.0-100.0) fL MCH (25.0-35.0) pg MCHC (31.0-37.0) g/dL RDW (11.5-15.5) % Plt Count (150-450) k/uL MPV Neutrophils % % Lymphocytes % % Monocytes % % Eosinophils % % Basophils % % Neutrophils # (1.3-7.7) k/uL Lymphocytes # (1.0-4.8) k/uL Monocytes # (0-1.0) k/uL Eosinophils # (0-0.7) k/uL Basophils # (0-0.2) k/uL PT (9.0-12.0) sec INR (<1.2) APTT (22.0-30.0) sec Sodium (137-145) mmol/L Potassium (3.5-5.1) mmol/L Chloride (98-107) mmol/L Carbon Dioxide (22-30) mmol/L Anion Gap mmol/L BUN (7-17) mg/dL Creatinine (0.52-1.04) mg/dL Est GFR (CKD-EPI)AfAm (>60 ml/min/1.73 sqM) Est GFR (CKD-EPI)NonAf (>60 ml/min/1.73 sqM) Glucose (74-99) mg/dL Plasma Lactic Acid Rasta (0.7-2.0) mmol/L Calcium (8.4-10.2) mg/dL Magnesium (1.6-2.3) mg/dL Total Bilirubin (0.2-1.3) mg/dL AST (14-36) U/L ALT (4-34) U/L Alkaline Phosphatase (38-126) U/L Troponin I <0.012 (0.000-0.034) ng/mL Total Protein (6.3-8.2) g/dL Albumin (3.5-5.0) g/dL Urine Color Yellow Urine Appearance Cloudy H (Clear) Urine pH 6.0 (5.0-8.0) Ur Specific [place] 1.013 (1.001-1.035) Urine Protein 1+ H (Negative) Urine Glucose (UA) Negative (Negative) Urine Ketones Negative (Negative) Urine Blood Trace H (Negative) Urine Nitrite Positive H (Negative) Urine Bilirubin Negative (Negative) Urine Urobilinogen <2.0 (<2.0) mg/dL Ur Leukocyte Esterase Large H (Negative) Urine RBC 2 (0-5) /hpf Urine WBC 117 H (0-5) /hpf Urine WBC Clumps Few H (None) /hpf Ur Squamous Epith Cells <1 (0-4) /hpf Urine Bacteria Many H (None) /hpf Urine Mucus Occasional H (None) /hpf Coronavirus (PCR) Not Detected (Not Detectd) 06/23/20 Range/Units 03:42 WBC (3.8-10.6) k/uL RBC (3.80-5.40) m/uL Hgb (11.4-16.0) gm/dL Hct (34.0-46.0) % MCV (80.0-100.0) fL MCH (25.0-35.0) pg MCHC (31.0-37.0) g/dL RDW (11.5-15.5) % Plt Count (150-450) k/uL MPV Neutrophils % % Lymphocytes % % Monocytes % % Eosinophils % % Basophils % % Neutrophils # (1.3-7.7) k/uL Lymphocytes # (1.0-4.8) k/uL Monocytes # (0-1.0) k/uL Eosinophils # (0-0.7) k/uL Basophils # (0-0.2) k/uL PT 10.7 (9.0-12.0) sec INR 1.0 (<1.2) APTT 25.5 (22.0-30.0) sec Sodium (137-145) mmol/L Potassium (3.5-5.1) mmol/L Chloride (98-107) mmol/L Carbon Dioxide (22-30) mmol/L Anion Gap mmol/L BUN (7-17) mg/dL Creatinine (0.52-1.04) mg/dL Est GFR (CKD-EPI)AfAm (>60 ml/min/1.73 sqM) Est GFR (CKD-EPI)NonAf (>60 ml/min/1.73 sqM) Glucose (74-99) mg/dL Plasma Lactic Acid Rasta (0.7-2.0) mmol/L Calcium (8.4-10.2) mg/dL Magnesium (1.6-2.3) mg/dL Total Bilirubin (0.2-1.3) mg/dL AST (14-36) U/L ALT (4-34) U/L Alkaline Phosphatase (38-126) U/L Troponin I (0.000-0.034) ng/mL Total Protein (6.3-8.2) g/dL Albumin (3.5-5.0) g/dL Urine Color Urine Appearance (Clear) Urine pH (5.0-8.0) Ur Specific [place] (1.001-1.035) Urine Protein (Negative) Urine Glucose (UA) (Negative) Urine Ketones (Negative) Urine Blood (Negative) Urine Nitrite (Negative) Urine Bilirubin (Negative) Urine Urobilinogen (<2.0) mg/dL Ur Leukocyte Esterase (Negative) Urine RBC (0-5) /hpf Urine WBC (0-5) /hpf Urine WBC Clumps (None) /hpf Ur Squamous Epith Cells (0-4) /hpf Urine Bacteria (None) /hpf Urine Mucus (None) /hpf Coronavirus (PCR) (Not Detectd) Disposition Clinical Impression: Weakness, Fever, UTI (urinary tract infection) Disposition: ADMITTED IP TO THIS HOSP Condition: Stable Is patient prescribed a controlled substance at d/c from ED?: No Time of Disposition: 05:00 Decision to Admit Reason: Admit from EC Decision Date: 06/23/20 Decision Time: 05:00
[2020-06-23 02:43] LABS: Basophils % (A) 0 %; Eosinophils # (A) 0.1 k/uL (0-0.7); Eosinophils % (A) 1 %; HCT 32.8 % (34.0-46.0); HGB 11.6 gm/dL (11.4-16.0); Lymphocytes % (A) 15 %; MCHC 35.3 g/dL (31.0-37.0); MCV 90.6 fL (80.0-100.0); Mean Platelet Volume 7.8; Monocytes # (A) 0.6 k/uL (0-1.0); Monocytes % (A) 9 %; Neutrophils % (A) 73 %; Platelet Count 127 k/uL (150-450); RBC 3.62 m/uL (3.80-5.40); RDW 12.4 % (11.5-15.5); WBC 6.9 k/uL (3.8-10.6)
[2020-06-23 03:02] LABS: Albumin 3.5 g/dL (3.5-5.0); Calcium 9.5 mg/dL (8.4-10.2); Magnesium 1.7 mg/dL (1.6-2.3); Potassium 3.5 mmol/L (3.5-5.1); Total Bilirubin 1.5 mg/dL (0.2-1.3); Total Protein 5.9 g/dL (6.3-8.2)
[2020-06-23] MEDS ORDERED: NALOXONE 0.4 MG/ML 1 ML VIAL IV PRN (03:09)
[2020-06-23] MEDS ORDERED: SODIUM CHLORIDE 0.9% 1,000 ML IV SCH (03:15)
--- NOTE | 2020-06-23 03:48 | CT ---
EXAM: CT Head Without Intravenous Contrast CLINICAL HISTORY: ITS.REASON CT Reason: weakness TECHNIQUE: Axial computed tomography images of the head/brain without intravenous contrast. CTDI is 49.2 mGy and DLP is 1072.4 mGy-cm. This CT exam was performed using one or more of the following dose reduction techniques: automated exposure control, adjustment of the mA and/or kV according to patient size, and/or use of iterative reconstruction technique. COMPARISON: MRI dated 12/22/2018 FINDINGS: Brain: Unremarkable. No hemorrhage. No significant white matter disease. No edema. Ventricles: Unremarkable. No ventriculomegaly. Bones/joints: Unremarkable. No acute fracture. Soft tissues: Unremarkable. Sinuses: Unremarkable as visualized. No acute sinusitis. Mastoid air cells: Unremarkable as visualized. No mastoid effusion. IMPRESSION: No acute intracranial process.
--- NOTE | 2020-06-23 03:49 | XR ---
EXAM: XR Chest, 1 View CLINICAL HISTORY: ITS.REASON XR Reason: Weakness TECHNIQUE: Frontal view of the chest. COMPARISON: No relevant prior studies available. FINDINGS: Lungs: Unremarkable. No consolidation. Pleural space: Unremarkable. No pneumothorax. Heart: Unremarkable. No cardiomegaly. Mediastinum: Unremarkable. Bones/joints: Unremarkable. IMPRESSION: No acute pulmonary process.
[2020-06-23 03:50] LABS: Appearance,Urine Cloudy (Clear); Bacteria,Urine Many /hpf; Bilirubin,Urine Negative (Negative); Blood,Urine Trace (Negative); Color,Urine Yellow; Glucose,Urine (UA) Negative (Negative); Ketones,Urine Negative (Negative); Leukocyte Esterase,Urine Large (Negative); Mucus,Urine Occasional /hpf; Nitrite,Urine Positive (Negative); Protein,Urine 1+ (Negative); RBC,Urine 2 /hpf (0-5); Specific Gravity,Urine 1.013 (1.001-1.035); Squamous Epithelial Cell,Urine <1 /hpf (0-4); Urobilinogen,Urine <2.0 mg/dL (<2.0); WBC,Urine 117 /hpf (0-5)
[2020-06-23 04:31] LABS: Partial Thromboplastin Time 25.5 sec (22.0-30.0); Prothrombin Time 10.7 sec (9.0-12.0)
[2020-06-23] MEDS ORDERED: MELATONIN 5 MG TABLET PO PRN (07:23)
[2020-06-23] MEDS ORDERED: ONDANSETRON 4 MG/2 ML VIAL IVP PRN (07:23)
[2020-06-23] MEDS ORDERED: bisacodyL 5 MG TABLET.DR PO PRN (07:23)
[2020-06-23] MEDS: ACETAMINOPHEN TAB 325 MG TAB PO PRN ×2 (08:52→20:16)
[2020-06-23] MEDS ORDERED: MECLIZINE 25 MG TAB PO PRN (10:52)
[2020-06-23] MEDS ORDERED: tiZANidine 4 MG TAB PO PRN (10:52)
[2020-06-23] MEDS ORDERED: traMADol 50 MG TAB PO PRN (10:52)
[2020-06-23] MEDS ORDERED: SUMAtriptan succinate 50 MG TAB PO PRN (10:52)
--- NOTE | 2020-06-23 11:58 | P.HPIM ---
History of Present Illness H&P Date: 06/23/20 Chief Complaint: Weakness This is a 74-year-old female with past medical history significant for underlying multiple sclerosis, not on any treatment, [facility] and foot drop. Patient said that usually she is able to get around with a cane but for the past couple of weeks she has been feeling progressively weak and unsteady. She reports getting dizzy when she walk around and also feeling that both legs are very weak and at times she noted foot drop in her left foot. Patient said that she has been using a walker instead of a cane to ambulate. She denies being treated for multiple sclerosis with any immunomodulators or steroids. She denies any headache otherwise. No vision change. No urinary symptoms. Patient was evaluated in the ER and a computed tomography scan of the head showed no acute intracranial findings. Urinalysis showed evidence of UTI so patient was started on antibiotic and placed in observation for neurology evaluation. Review of Systems Review of system: 14 points review of systems were obtained and were negative except to what were mentioned in the HPI. Past Medical History Past Medical History: Deep Vein Thrombosis (DVT), Hyperlipidemia, Hypertension, Pneumonia, Pulmonary Embolus (PE) Additional Past Medical History / Comment(s): ruptured bowel 06/2015. LEFT LEG DVT. RLS, urinary leakage. MS History of Any Multi-Drug Resistant Organisms: None Reported Past Surgical History: Bowel Resection, Cholecystectomy, Hernia Repair, Joint Re placement, Orthopedic Surgery Additional Past Surgical History / Comment(s): L KNEE replacement. RIGHT SHOULDER SURGERY, rt knee meniscus, colostomy reversal, ptosis tigist, cataract tigist with lens implants Past Anesthesia/Blood Transfusion Reactions: No Reported Reaction Past Psychological History: No Psychological Hx Reported Smoking Status: Never smoker Past Alcohol Use History: None Reported Past Drug Use History: None Reported Additional Drug Use History / Comment(s): cbd, edibles - Past Family History Father Family Medical History: Cancer Mother Family Medical History: Cancer Medications and Allergies Home Medications Medication Instructions Recorded Confirmed Type Eletriptan [Relpax] 40 mg PO DAILY PRN 11/07/15 06/23/20 History traMADol HCL [Ultram] 50 mg PO DAILY PRN 01/09/16 06/23/20 History Gabapentin 800 mg PO TID 07/15/17 06/23/20 History Denosumab [Prolia] 60 mg SQ Q180D 08/17/18 06/23/20 History Trospium Chloride [Sanctura XR] 60 mg PO DAILY 12/04/19 06/23/20 History Meclizine [Antivert] 25 mg PO TID PRN 06/23/20 06/23/20 History Meloxicam [Mobic] 15 mg PO DAILY 06/23/20 06/23/20 History tiZANidine HCL 2 mg PO Q6H PRN 06/23/20 06/23/20 History Allergies Allergy/AdvReac Type Severity Reaction Status Date / Time carbamazepine [From Tegretol] Allergy Nausea Verified 06/23/20 09:53 ciprofloxacin [From Cipro] Allergy lt leg pain Verified 06/23/20 09:53 iodine Allergy Rash/Hives Verified 06/23/20 09:53 tropicamide [From Mydriacyl] Allergy Itching Verified 06/23/20 09:53 fosinopril AdvReac Cough Verified 06/23/20 09:53 lisinopril AdvReac Cough Verified 06/23/20 09:53 topiramate [From Topamax] AdvReac Nausea & Verified 06/23/20 09:53 Vomiting & Diarrhea Physical Exam Vitals: Vital Signs Temp Pulse Pulse Resp BP BP Pulse Ox 06/23/20 07:10 98.0 F 66 16 93/66 97 06/23/20 06:53 98.3 F 65 18 104/52 95 06/23/20 05:00 65 18 98/53 96 06/23/20 03:13 100.7 F H 70 18 120/54 95 06/23/20 00:38 101.7 F H 72 18 114/51 95 Intake and Output 06/22/20 06/23/20 06/23/20 22:59 06:59 14:59 Output Total 500 Balance -500 Output: Urine 500 Straight 500 Other: Weight 66.678 kg 66.678 kg General: The patient is awake and alert, in no distress Eye: there is normal conjunctiva bilaterally. Neck: The neck is supple, there is no JVD. Cardiovascular: Normal S1-S2, no S3-S4, no murmurs. Respiratory: Lungs clear to auscultation bilaterally Gastrointestinal: Abdomen is soft, nontender Musculoskeletal: There is no pedal edema. Neurological:. Speech is normal. Skin: Skin is warm and dry Results CBC & Chem 7: 06/23/20 00:58 06/23/20 00:58 Labs: Abnormal Lab Results - Last 24 Hours (Table) 06/23/20 06/23/20 06/23/20 Range/Units 00:58 00:58 01:23 RBC 3.62 L (3.80-5.40) m/uL Hct 32.8 L (34.0-46.0) % Plt Count 127 L (150-450) k/uL Sodium 135 L (137-145) mmol/L BUN 21 H (7-17) mg/dL Creatinine 1.09 H (0.52-1.04) mg/dL Glucose 103 H (74-99) mg/dL Total Bilirubin 1.5 H (0.2-1.3) mg/dL Total Protein 5.9 L (6.3-8.2) g/dL Urine Appearance Cloudy H (Clear) Urine Protein 1+ H (Negative) Urine Blood Trace H (Negative) Urine Nitrite Positive H (Negative) Ur Leukocyte Esterase Large H (Negative) Urine WBC 117 H (0-5) /hpf Urine WBC Clumps Few H (None) /hpf Urine Bacteria Many H (None) /hpf Urine Mucus Occasional H (None) /hpf Thrombosis Risk Factor Assmnt - Choose All That Apply Any of the Below Risk Factors Present?: Yes Other Risk Factors: Yes Each Risk Factor Represents 2 Points: Age 61-74 years Other congenital or acquired thrombophilia - If yes, enter type in comment: No Thrombosis Risk Factor Assessment Total Risk Factor Score: 2 Thrombosis Risk Factor Assessment Level: Low Risk Assessment and Plan Assessment: 1. Progressive lower extremity weakness, maybe possible sclerosis flareup. Awaiting neurology evaluation. Computed tomography scan of the head showed no acute intracranial findings. A benefit from some steroid pending neurology evaluation I would consult physical therapy for further evaluation 2. UTI, started on IV ceftriaxone awaiting urine culture. Check bladder scan to rule out retention as patient has underlying MS and is on Trospium at home 3. Fever on presentation with no evidence of sepsis: probably secondary to UTI. Awaiting blood cultures to finalize 4. Chronic arthritis pain Today, I reviewed her medication list and lab work results. Discontinue IV fluid. Check orthostatic blood pressure. Awaiting neurology evaluation.
--- NOTE | 2020-06-23 13:49 | P.CNNES ---
History of Present Illness Consult date: 06/23/20 Requesting physician: Maki Molina Reason for Consult: Multiple sclerosis and weakness History of Present Illness: This is a 74-year-old woman with medical history of multiple sclerosis since 1984, migraine, hypertension, hyperlipidemia, bowel obstruction in 2016 and during hospital stay had DVT of left lower extremity who presented emergency department on 06/23/2020 for progressive weakness and foot drop. Patient stated that she usually uses a cane but for the last couple days she felt her bilateral legs were unsteady and descriped them as "logs". She felt her gait was unsteady and as result she had to use a cane. Per ED note it is mentioned her gait has been weak for the past couple weeks. She also complained of left foot drop. She denies of any upper gym any weakness, visual disturbance, difficulty getting her words out, any new focal numbness. Patient stated that she follows up with Dr. dawna Ash for her neurological work- up. She was started on tizanidine and has been on it for the past couple days per the patient and as result has been having confusion and was told her her neurologist to stop. Regarding her multiple sclerosis she said that the she was diagnosed in 1984 with multiple sclerosis and was confirmed the by imaging. She had the lumbar puncture and was negative. Her symptoms were unsteady at walk-in and had difficulty looking up in which she lost balance in the past. She is not on any disease modifying drug for her MS because was told her symptoms are mild. Patient denies of any lower back pain. Denies any history of seizures. Per the patient nurse upon presenting to the hospital she was initially her mentation was slow to respond but she feels her mentation is drastically improved at. Patient's home medication listed is tramadol 50 mg when necessary, tizanidine 2 mg every 6 hours as needed (stopped), Antivert as needed, Mobic 50 mg daily, poorly 60 mg every 180 day, gabapentin 800 mg 1 tablet 3 times a day, Relpax PRN. Some other workup in the hospital consisted of: Initial vital signs: Blood pressure of 114/51, heart rate of 72, respiratory of 18, temperature of 101.7 Fahrenheit oral and pulse ox of 95% room air. CT of the head is reported as no acute intracranial process. I personally reviewed the CT of the head and I felt the patient had focal small hypo-density which seems old over the left frontal/parietal region. Initial white blood cells 6.9 which is normal. Sodium was 135 was minimally low. Creatinine is 1.09 with slightly elevated Urinalysis is positive for urinary tract infection. Ortiz virus PCR was not detected. Review of Systems Review of system: The 12 point system was reviewed and apparent positive and negative per HPI. Past Medical History Past Medical History: Deep Vein Thrombosis (DVT), Hyperlipidemia, Hypertension, Pneumonia, Pulmonary Embolus (PE) Additional Past Medical History / Comment(s): ruptured bowel 06/2015. LEFT LEG DVT. RLS, urinary leakage. MS History of Any Multi-Drug Resistant Organisms: None Reported Past Surgical History: Bowel Resection, Cholecystectomy, Hernia Repair, Joint Replacement, Orthopedic Surgery Additional Past Surgical History / Comment(s): L KNEE replacement. RIGHT SHOULDER SURGERY, rt knee meniscus, colostomy reversal, ptosis tigist, cataract tigist with lens implants Past Anesthesia/Blood Transfusion Reactions: No Reported Reaction Past Psychological History: No Psychological Hx Reported Smoking Status: Never smoker Past Alcohol Use History: None Reported Past Drug Use History: None Reported Additional Drug Use History / Comment(s): cbd, edibles - Past Family History Father Family Medical History: Cancer Mother Family Medical History: Cancer Medications and Allergies Home Medications Medication Instructions Recorded Confirmed Type Eletriptan [Relpax] 40 mg PO DAILY PRN 11/07/15 06/23/20 History traMADol HCL [Ultram] 50 mg PO DAILY PRN 01/09/16 06/23/20 History Gabapentin 800 mg PO TID 07/15/17 06/23/20 History Denosumab [Prolia] 60 mg SQ Q180D 08/17/18 06/23/20 History Trospium Chloride [Sanctura XR] 60 mg PO DAILY 12/04/19 06/23/20 History Meclizine [Antivert] 25 mg PO TID PRN 06/23/20 06/23/20 History Meloxicam [Mobic] 15 mg PO DAILY 06/23/20 06/23/20 History tiZANidine HCL 2 mg PO Q6H PRN 06/23/20 06/23/20 History Allergies Allergy/AdvReac Type Severity Reaction Status Date / Time carbamazepine [From Tegretol] Allergy Nausea Verified 06/23/20 09:53 ciprofloxacin [From Cipro] Allergy lt leg pain Verified 06/23/20 09:53 iodine Allergy Rash/Hives Verified 06/23/20 09:53 tropicamide [From Mydriacyl] Allergy Itching Verified 06/23/20 09:53 fosinopril AdvReac Cough Verified 06/23/20 09:53 lisinopril AdvReac Cough Verified 06/23/20 09:53 topiramate [From Topamax] AdvReac Nausea & Verified 06/23/20 09:53 Vomiting & Diarrhea Physical Examination - Vital Signs Vital Signs: Vital Signs Temp Pulse Pulse Resp BP BP Pulse Ox 06/23/20 07:10 98.0 F 66 16 93/66 97 06/23/20 06:53 98.3 F 65 18 104/52 95 06/23/20 05:00 65 18 98/53 96 06/23/20 03:13 100.7 F H 70 18 120/54 95 06/23/20 00:38 101.7 F H 72 18 114/51 95 Intake and Output 06/22/20 06/23/20 06/23/20 22:59 06:59 14:59 Output Total 500 Balance -500 Output: Urine 500 Straight 500 Other: Weight 66.678 kg 66.678 kg GENERAL: The patient is lying in bed and is not in acute distress. CHEST: The heart rate is regular rate rhythm. No murmurs to auscultation. No carotid bruit bilaterally. LUNG: Clear to auscultation bilaterally no wheezing noted throughout. Not labored breathing. ABDOMEN/GI: Bowel sounds present in all 4 quadrants. No tenderness to palpation throughout. NEUROLOGICAL: Higher mental function: The patient is awake, alert, oriented to self, place and time. Patient is following simple and complex commands. No aphasia and no neglect. Cranial nerves: The pupils are round, equal and reactive to light and accommo dation. Visual rosado are full to confrontation throughout. Extraocular movement is intact no nystagmus is noted. Facial sensation is normal to touch throughout. The facial strength is normal throughout. Hearing is normal bilaterally to hand rub. Tongue is midline and moved [id number] without any difficulty. No dysarthria is noted. Shoulder shrug is normal bilaterally. Motor: Gait was slow and taking short step but not swaying to one side and walking unassisted. The strength is left ankle dorsiflexion is minimally decreased in strength 5-/5. Otherwise 5 over 5 throughout. Normal tone and bulk. Cerebellum: Normal finger to nose bilaterally. Sensation: Sensation is normal to touch throughout. Reflexes (right/left): 1-2+ bilateral patellar. Otherwise 2+ throughout. Plantars are downgoing bilaterally. Results - Laboratory Findings CBC and BMP: 06/23/20 00:58 06/23/20 00:58 Abnormal Lab Findings: Abnormal Labs 06/23/20 06/23/20 06/23/20 00:58 00:58 01:23 RBC 3.62 L Hct 32.8 L Plt Count 127 L Sodium 135 L BUN 21 H Creatinine 1.09 H Glucose 103 H Total Bilirubin 1.5 H Total Protein 5.9 L Urine Appearance Cloudy H Urine Protein 1+ H Urine Blood Trace H Urine Nitrite Positive H Ur Leukocyte Esterase Large H Urine WBC 117 H Urine WBC Clumps Few H Urine Bacteria Many H Urine Mucus Occasional H Assessment and Plan Assessment: * Acute Bilateral lower extremity weakness: Could be due to pseudo-exacerbation of MS since has acute UTI (seems more likely) vs active MS replase---weakness improved. * Alternates status could be due to septic encephalopathy (acute urinary tract infection) as well component of medication effect (on Gabapentin high dose, Tizandine, Tramadol)---mentation improved * Subjective complaints of left foot drop (Not seen on examination) * Acute urinary tract infection * History of migraine * History of restless leg syndrome * Hypertension * Hyperlipidemia * History of DVT Plan: * CT of the head is reported as no acute intracranial process. I personally reviewed the CT of the head and I felt the patient had focal small hypo- density which seems old over the left frontal/parietal region. * I ordered MRI of the brain, cervical spine and lumbar with and without to rule out any active lesion. Patient said she needs Abx prior to MRI and will found out more reason if she is allergic to contrast or not and whether to prep for constrast prior or not. If there is active lesion then I will start the patient on the IV Solu-Medrol 500mg every 12 hours for 3-5 days. * Consulted physical therapy and occupation therapy * I discontinued tizanidine since the patient stated that the when she was on it recently she was confused. * I ordered TSH, vitamin B12, folate level. I also ordered vitamin D level. * Upon discharge the patient needs to follow-up with her neurologist (Dr. Dawna Ash) within 1-2 weeks as an outpatient. Defer the modification of Gabap entin to her neurologist. * We'll defer the rest of the medical management to the primary team. The plan is discussed with the patient's nurse Thank you for the consultation Dr. Mars will take over neurology service tomorrow AM (06/24/2020). Norman Stevenson M.D. Neuro-hospitalist Time with Patient: Greater than 30
[2020-06-23] MEDS: GABAPENTIN 400 MG CAP PO SCH ×2 (17:09→21:07)
[2020-06-23] MEDS: polyethylene glycoL 3350 17 GM POWD.PACK PO SCH (23:15)
[2020-06-24] MEDS: ACETAMINOPHEN TAB 325 MG TAB PO PRN ×2 (02:21→20:06)
[2020-06-24] MEDS: GABAPENTIN 400 MG CAP PO SCH ×3 (07:57→20:42)
[2020-06-24] MEDS: MELOXICAM 7.5 MG TAB PO SCH (07:57)
[2020-06-24] MEDS: TROSPIUM CHLORIDE 20 MG TABLET PO SCH ×2 (07:57→20:06)
[2020-06-24 09:58] LABS: African American GFR (CKD) 84.2 (60.0-200.0); Calcium 8.3 mg/dL (8.7-10.3); Non-African American GFR(CKD) 72.6 (60.0-200.0); Potassium 3.3 mmol/L (3.5-5.5)
[2020-06-24 11:31] LABS: Folate, Serum 10.6 ng/mL
--- NOTE | 2020-06-24 13:14 | P.PN ---
Subjective Progress Note Date: 06/24/20 Patient is feeling fairly well today. No acute events overnight. She is scheduled for MRI of the brain later today. Objective - Vital Signs Vital signs: Vital Signs Temp 98.3 F 06/24/20 07:40 Pulse 84 06/24/20 11:58 Resp 16 06/24/20 11:58 BP 113/70 06/24/20 07:40 Pulse Ox 95 06/24/20 08:53 Intake & Output 06/23/20 06/24/20 06/24/20 18:59 06:59 18:59 Intake Total 500 Output Total 1175 Balance 500 -1175 Weight 66.678 kg Intake: Intake, IV Titration 500 Amount Sodium Chloride 0.9% 1, 500 000 ml @ 100 mls/hr IV . Q10H [facility] Rx#:[id number] Output: Urine 1175 Other: Voiding Method Indwelling Catheter Indwelling Catheter - Exam General: The patient is awake and alert, in no distress Eye: there is normal conjunctiva bilaterally. Neck: The neck is supple, there is no JVD. Cardiovascular: Normal S1-S2, no S3-S4, no murmurs. Respiratory: Lungs clear to auscultation bilaterally Gastrointestinal: Abdomen is soft, nontender Musculoskeletal: There is no pedal edema. Neurological:. Speech is normal. Skin: Skin is warm and dry - Labs CBC & Chem 7: 06/23/20 00:58 06/24/20 04:55 Labs: Abnormal Lab Results - Last 24 Hours (Table) 06/24/20 Range/Units 04:55 Potassium 3.3 L (3.5-5.5) mmol/L Calcium 8.3 L (8.7-10.3) mg/dL Microbiology - Last 24 Hours (Table) 06/23/20 01:23 Urine Culture - Preliminary Urine,Catheterized Gram Neg Bacilli 06/23/20 01:23 Blood Culture - Preliminary Blood No Growth after 24 hours 06/23/20 01:23 Blood Culture - Preliminary Blood No Growth after 24 hours Assessment and Plan Assessment: This is a 74-year-old female with past medical history of multiple sclerosis and recurrent UTI that presented to the emergency room with worsening weakness involving lower extremities. Patient was evaluated in the ER and admitted to the hospital for further management of her medical problems noted below. 1. Progressive lower extremity weakness, maybe possible sclerosis flareup. Computed tomography scan of the head showed no acute intracranial findings. Patient was seen and evaluated by neurology. MRI of the brain and cervical spine ordered for further evaluation, appreciate recommendations. 2. UTI, started on IV ceftriaxone awaiting urine culture. 3. Fever on presentation with no evidence of sepsis: probably secondary to UTI. Blood cultures negative to date 4. Obstructive uropathy; status post Shaw catheter insertion with approximately 500 mL of urine. Home dose of Trospium will be discontinued. Plan for voiding trial tomorrow. Chronic arthritis pain Today, I reviewed her medication list and lab work results. Continue current management. Awaiting MRI results. Patient was seen and evaluated by PT/OT. She is not interested in going to rehab. She said that she has to travel to [place] to reunite with family.
[2020-06-24] MEDS ORDERED: Potassium Replacement Protocol 1 EACH MISC MISCELLANE PRN (16:23)
[2020-06-24] MEDS: POTASSIUM CHLORIDE ER 20 MEQ TAB.ER PO SCH ×2 (18:05→20:06)
--- NOTE | 2020-06-24 19:33 | MR ---
EXAMINATION TYPE: MR brain/cspine wo/w DATE OF EXAM: 06/24/2020 COMPARISON: MR brain and cervical spine 12/22/2018 HISTORY: Leg weakness, evaluate for MS exacerbation. TECHNIQUE: Multiplanar, multisequence images of the brain and brainstem, cervical spine is performed without and with IV contrast, utilizing 7 mL intravenous Gadavist . FINDINGS: Brain MRI: Diffusion weighted images demonstrate no evidence of a recent infarct or other diffusion a bnormality. There is no extra-axial fluid collection or significant interval change in white matter signal abnormality. The ventricular system and cisternal spaces are normal in size and appearance. The brain volume is age appropriate, there is cortical atrophy. Midline structures demonstrate normal morphology. The craniocervical junction appears within normal limits. Post contrast images demonstrate no abnormal enhancement. The dural venous sinuses appear pa tent. The visualized sinuses are remarkable for mucoperiosteal thickening within the maxillary sinuse s, ethmoid air cells and the globes are intact. IMPRESSION: Essentially stable white matter demyelination, no subacute infarct is evident. There is s inus disease. Cervical spine MRI: Essentially stable. Cervical vertebral bodies show preserved height, alignment, a nd bone marrow signal. Disc spaces are maintained. No significant spinal stenosis. Degenerative disc changes with loss of disc height greatest at C4-5 and C5-6, endplate discogenic marrow signal changes are stable, posterior extension endplate disc complex causes mild anterior mass effect on the thecal sac at these levels. No abnormal enhancement. Cervical cord signal is stable, some questionable incr eased signal at the posterior aspect of the cord at the C2-3 level as on prior exam is less conspicuo us. IMPRESSION: Stable findings. No acute abnormality.
--- NOTE | 2020-06-24 19:37 | MR ---
EXAMINATION TYPE: MR lumbar spine wo/w con DATE OF EXAM: 06/24/2020 COMPARISON: Prior lumbar MRI 08/04/2019 HISTORY: Leg weakness, evaluate for MS exacerbation. TECHNIQUE: Multiplanar, multisequence images of the lumbar spine were acquired utilizing [address] gadolinium contrast. L1-L2: Loss of disc height is present, there is endplate discogenic marrow signal change as on prior exam. Some increased signal is present posterior aspect of the disc. Minimal posterior disc bulge cau ses only slight anterior mass effect on the thecal sac. L2-L3: There is a posterior disc bulge causing mild anterior mass effect on the thecal sac. Circumfer ential disc bulge extends towards the right perhaps contributed by the spinal curvature. There is nette e facet arthropathy change present. Some right-sided foraminal encroachment is present just inferior margin L3-L4: Posterior disc bulge causes slight anterior mass effect on the thecal sac. There is facet arth ropathy change causing some posterior lateral mass effect on the thecal sac. No significant foraminal encroachment. L4-L5: There is facet arthropathy change. No significant disc herniation. L5-S1: Facet arthropathy changes are present. No significant foraminal encroachment. Lumbar segments are intact. No paraspinal masses are identified. Conus medullaris has a normal appe arance. There is an accentuated lordosis as on prior exam, no significant spinal stenosis. There is a spinal curvature. Anterior wedging at T12 is again noted as on prior. Cystic changes are associated with the right kidney. Possible splenule present adjacent to the posterior aspect of the spleen as on prior exam. Pelvic kidney is noted on the left. There is a prominent extrarenal pelvis. IMPRESSION: Essentially stable degenerative disc disease. Facet arthropathy change. No significant spinal stenosi s. Spinal curvature. Additional findings above. Pelvic kidney.
[2020-06-24] MEDS: FOLIC ACID 1 MG TAB PO SCH (20:06)
[2020-06-24] MEDS: CYANOCOBALAMIN 1,000 MCG/ML 1 ML VIAL IM SCH (20:42)
[2020-06-24] MEDS: polyethylene glycoL 3350 17 GM POWD.PACK PO SCH (20:42)
[2020-06-25] MEDS: CYANOCOBALAMIN 1,000 MCG/ML 1 ML VIAL IM SCH (07:20)
[2020-06-25] MEDS: MELOXICAM 7.5 MG TAB PO SCH (07:20)
[2020-06-25] MEDS: TROSPIUM CHLORIDE 20 MG TABLET PO SCH ×2 (07:21→22:12)
[2020-06-25] MEDS: GABAPENTIN 400 MG CAP PO SCH ×3 (07:21→21:08)
[2020-06-25] MEDS: FOLIC ACID 1 MG TAB PO SCH (07:21)
--- NOTE | 2020-06-25 07:55 | US ---
EXAMINATION TYPE: US carotid duplex BILAT DATE OF EXAM: 06/24/2020 COMPARISON: MR, CT brain CLINICAL HISTORY: AMS, syncope. AMS, syncope per order. EXAM MEASUREMENTS: RIGHT: Peak Systolic Velocity (PSV) cm/sec ----- Right CCA: 118.1 ----- Right ICA: 100.6 ----- Right ECA: 142.5 ICA/CCA ratio: 0.9 RIGHT: End Diastole cm/sec ----- Right CCA: 29.5 ----- Right ICA: 34.4 ----- Right ECA: 30.2 LEFT: Peak Systolic Velocity (PSV) cm/sec ----- Left CCA: 111.9 ----- Left ICA: 107.1 ----- Left ECA: 131.0 ICA/CCA ratio: 1.0 LEFT: End Diastole cm/sec ----- Left CCA: 31.2 ----- Left ICA: 21.5 ----- Left ECA: 19.9 VERTEBRALS (direction of flow): Right Vertebral: Antegrade Left Vertebral: Antegrade Rhythm: Normal Intimal thickening bilaterally. Minimal plaque seen within bilateral carotid bulbs. Elevated velociti es within right ECA, left mid CCA, and left ECA. Incidental finding: Multiple subcentimeter nodules seen within bilateral thyroid lobes. Left thyroid lobe appears hetero geneous. Largest complex cystic nodule appears to measure 0.6 x 0.5 x 0.4 cm. IMPRESSION: 1. Less than 50% stenosis of the bilateral internal carotid arteries. There is minimal atheroscleroti c plaque seen within the bilateral common carotid artery bifurcations with intimal thickening bilater ally. 2. Elevated velocities of the bilateral external carotid arteries and focally at the mid left common carotid artery. 3. Multiple subcentimeter left thyroid nodules. The largest of these measure 6 mm and appears as a co mplex cystic nodule in the left lobe. Dedicated thyroid ultrasound may be helpful. Criteria for Assigning % of Stenosis / Diameter reduction (Estimation based on the indirect measurements of the internal carotid artery velocities (ICA PSV). 1. Normal (no stenosis)=ICA PSV < 125 cm/s: ratio < 2.0: ICA EDV<40 cm/s. 2. Less than 50% stenosis=ICA PSV < 125 cm/s: ratio < 2.0: ICA EDV<40 cm/s. 3. 50 to 69% stenosis=ICA PSV of 125 to 230 cm/s: ration 2.0 ? 4.0: ICA EDV 40-100 cm/s. 4. Greater than 70% stenosis to near occlusion= ICA PSV > 230 cm/s: ratio > 4.0: ICA EDV > 100 cm/s. 5. Near occlusion= ICA PSV velocities may be low or undetectable: variable ratio and ICA EDV. 6. Total occlusion=unable to detect flow.
[2020-06-25 09:29] LABS: ALT 13 U/L (4-34); AST 28 U/L (14-36); African American GFR (CKD) >90 (>60 ml/min/1.73 sqM); Albumin 2.7 g/dL (3.5-5.0); Albumin/Globulin Ratio 1.2; Alkaline Phosphatase 82 U/L (38-126); Anion Gap 5 mmol/L; Blood Urea Nitrogen 11 mg/dL (7-17); Calcium 8.2 mg/dL (8.4-10.2); Carbon Dioxide 27 mmol/L (22-30); Chloride 109 mmol/L (98-107); Globulin 2.3 g/dL; Glucose 85 mg/dL (74-99); Non-African American GFR(CKD) 84 (>60 ml/min/1.73 sqM); Potassium 3.8 mmol/L (3.5-5.1); Sodium 141 mmol/L (137-145); Total Bilirubin 0.5 mg/dL (0.2-1.3)
--- NOTE | 2020-06-25 09:52 | P.PN ---
Subjective Progress Note Date: 06/24/20 Patient was seen for a follow-up. Patient initially seen by Dr. Norman Stevenson on 06/23/2020, please refer to his note for details. Patient has history of MS since 1984, migraines, hypertension, hyperlipidemia. Patient currently not on any disease modifying agent. Patient came to the hospital for lower extremity weakness and tiredness lately. She has been feeling that her legs were unsteady and described them as "logs". Her symptoms started since 05/26/2020. Her gait has been getting worse for the last couple weeks. Patient also complains of left foot drop. No upper extremity weakness, visual disturbance or speech difficulty. Patient follows up with Dr. Quintin Ash. Patient's daughter was also on the speaker phone throughout the encounter. Patient has history of MS since age 40. Patient usually uses 4 pronged cane at home, although since 05/26/2020 when her symptoms began, she is using a walker. She has not had any falls. No problem with incontinence of urine. She does have history of bladder sling placed in the past. Patient has no urological symptoms but her bladder scan revealed "full bladder" therefore she is now on Foleys catheter. Patient states that she came because her legs felt so heavy that she could not lift or walk. She would shuffle. Patient's daughter has al so noticed that she was having hallucinations. She could not get to raise her head and was slouched over. Last night she has recurrence of symptoms, when she states that she could barely lift her left leg. The symptoms lasted for 8 minutes in the left leg, also had some chest symptoms in the right leg. Patient states that she was recently seen by her neurologist who had recommended EEG, carotid Doppler and transcranial Doppler. Patient and her daughter wants to have these tests done here. Objective - Vital Signs Vital signs: Vital Signs Temp 98.1 F 06/24/20 14:15 Pulse 98 06/24/20 14:15 Resp 16 06/24/20 14:15 BP 116/77 06/24/20 14:15 Pulse Ox 97 06/24/20 14:15 Intake & Output 06/23/20 06/24/20 06/24/20 18:59 06:59 18:59 Intake Total 500 Output Total 1175 Balance 500 -1175 Weight 66.678 kg Intake: Intake, IV Titration 500 Amount Sodium Chloride 0.9% 1, 500 000 ml @ 100 mls/hr IV . Q10H [facility] Rx#:[id number] Output: Urine 1175 Other: Voiding Method Indwelling Catheter Indwelling Catheter # Voids 2 - Exam Patient is an elderly female, very pleasant, in no acute distress. Patient is alert awake oriented to time place and person. Speech and language functions are normal. Attention, concentration and fund of knowledge is adequate. On cranial examination, pupils are round and reacting to light, visual rosado are full on confrontation, extraocular muscles are intact with no nystagmus. Face is symmetric, tongue protrudes to the midline. Palatal elevation and sensation normal, hearing and shoulder shrug normal, facial sensation normal. Shoulder shrug normal. On muscle strength testing, there is no pronator drift and the strength is normal in arms distally and proximally. In the lower extremities have hip flexion is 4-, hip adduction 5, hip abduction 5-, knee extension 5, ankles and toes are normal bilaterally. No foot drop. Deep tendon reflexes are 1+ to 2 in the upper limbs, 2 at the knees, 1+ ankles and plantars downgoing. Sensory to touch is equal with no neglect. Cerebellar function showed no ataxia for [id number] testing. No dysdiadochokinesia. Tone and bulk of muscles normal. Gait did not check. On general examination, there is no carotid bruit or murmur, S1-S2 audible. Abdomen is soft nontender. Chest is clear. Peripheral pulses are present. No edema. - Labs CBC & Chem 7: 06/23/20 00:58 06/25/20 08:31 Labs: Abnormal Lab Results - Last 24 Hours (Table) 06/24/20 Range/Units 04:55 Potassium 3.3 L (3.5-5.5) mmol/L Calcium 8.3 L (8.7-10.3) mg/dL Microbiology - Last 24 Hours (Table) 06/23/20 01:23 Urine Culture - Preliminary Urine,Catheterized Gram Neg Bacilli 06/23/20 01:23 Blood Culture - Preliminary Blood No Growth after 24 hours 06/23/20 01:23 Blood Culture - Preliminary Blood No Growth after 24 hours Assessment and Plan Assessment: * Acute intermittent Bilateral lower extremity weakness, unclear cause: Could be due to pseudo-exacerbation of MS since has acute UTI (seems more likely) vs active MS replase---weakness improved. MRI of the brain, cervical and lumbar spine shows no radiographic evidence of MS exacerbation. No significant pathology noted on the MRI. * Altered mental status could be due to delirium (acute urinary tract infection) as well component of medication effect (on Gabapentin high dose, Tizandine, Tramadol)---mentation improved * Subjective complaints of left foot drop (Not seen on examination) * Acute urinary tract infection * History of migraine * History of restless leg syndrome * Hypertension * Hyperlipidemia * History of DVT Plan: * MRI of the brain with and without contrast revealed essentially stable white matter demyelination, no subacute infarct. Sinus disease. No active enhancing lesions. * MRI of the cervical spine with and without contrast shows stable findings, no acute abnormality. No enhancing lesion, no spinal stenosis. * MRI of the lumbar spine with and without contrast revealed essentially stable degenerative disc disease. Facet arthropathy. No significant spinal stenosis. Spinal curvature. * Orthostatics were rechecked. Her supine blood pressure 159/60, sitting was 156/83 and standing 125/76. The orthostatics are positive. Consider cardiology consultation. * For recurrent symptoms in the lower extremities, we will check carotid Doppler and a 2-D echo. Also we will check EEG as requested by patient's neurologist. We will start patient on aspirin 81 mg daily. * Patient is off tizanidine, as confusion started when she was started on this medication. * TSH 0.82, vitamin B12 409, folate level 10.6. Vitamin D 88.6 on 05/21/2020. Hemoglobin A1c 5.1 on 05/21/2020. Her B12 is borderline, we will start replacement. Lipid panel with cholesterol 124, LDL 53, HDL 36 and trig lycerides 173. No indication for Lipitor, as her LDL is normal <70. * Upon discharge the patient needs to follow-up with her neurologist (Dr. Quintin Ash) within 1-2 weeks as an outpatient. Defer the modification of Gabapentin to her neurologist. * We will obtain records from patient's neurologist. * We'll defer the rest of the medical management to the primary team. Time with Patient: Greater than 30
[2020-06-25] MEDS ORDERED: BUTALB/APAP/CAFF 50-325-40MG TAB PO PRN (11:09)
[2020-06-25] MEDS: ASPIRIN 81 MG PO SCH (11:42)
--- NOTE | 2020-06-25 12:45 | P.PN ---
Subjective Progress Note Date: 06/25/20 Patient is doing well today. She does not have any complaints. No acute events overnight reported by nursing staff. Objective - Vital Signs Vital signs: Vital Signs Temp 98.9 F 06/25/20 07:00 Pulse 98 06/25/20 12:20 Resp 16 06/25/20 12:20 BP 134/80 06/25/20 11:49 Pulse Ox 96 06/25/20 08:04 Intake & Output 06/24/20 06/25/20 06/25/20 18:59 06:59 18:59 Intake Total 540 540 Output Total 50 1000 Balance 490 -460 Intake: Oral 540 540 Output: Urine 50 1000 Other: Voiding Method Indwelling Catheter Indwelling Catheter Indwelling Catheter # Voids 2 2 - Exam General: The patient is awake and alert, in no distress Eye: there is normal conjunctiva bilaterally. Neck: The neck is supple, there is no JVD. Cardiovascular: Normal S1-S2, no S3-S4, no murmurs. Respiratory: Lungs clear to auscultation bilaterally Gastrointestinal: Abdomen is soft, nontender Musculoskeletal: There is no pedal edema. Neurological:. Speech is normal. Skin: Skin is warm and dry - Labs CBC & Chem 7: 06/23/20 00:58 06/25/20 08:31 Labs: Abnormal Lab Results - Last 24 Hours (Table) 06/25/20 Range/Units 08:31 Chloride 109 H (98-107) mmol/L Calcium 8.2 L (8.4-10.2) mg/dL Total Protein 5.0 L (6.3-8.2) g/dL Albumin 2.7 L (3.5-5.0) g/dL Microbiology - Last 24 Hours (Table) 06/23/20 01:23 Urine Culture - Final Urine,Catheterized Escherichia coli 06/23/20 01:23 Blood Culture - Preliminary Blood No Growth after 48 hours 06/23/20 01:23 Blood Culture - Preliminary Blood No Growth after 48 hours Assessment and Plan Assessment: This is a 74-year-old female with past medical history of multiple sclerosis and recurrent UTI that presented to the emergency room with worsening weakness involving lower extremities. Patient was evaluated in the ER and admitted to the hospital for further management of her medical problems noted below. 1. Progressive lower extremity weakness, improved significantly. Computed tomography scan of the head showed no acute intracranial findings. Patient was seen and evaluated by neurology. MRI of the brain and lumbar spine with no acute findings. 2. UTI, started on IV ceftriaxone day #3. Urine culture showed pansensitive E. coli 3. Fever on presentation with no evidence of sepsis: probably secondary to UTI. Blood cultures negative to date 4. Obstructive uropathy; status post Shaw catheter insertion with approximately 500 mL of urine. Home dose of Trospium will be discontinued. Shaw catheter was removed today and postvoid residual was 51 5. Chronic arthritis pain Today, I reviewed her medication list and lab work results. Patient is medically cleared for discharge. She was seen and evaluated by PT/OT. Patient and her daughter are agreeable for placement for subacute rehab. Awaiting insurance authorization.
--- NOTE | 2020-06-25 13:18 | P.PN ---
Subjective Progress Note Date: 06/25/20 06/25/2020: Patient was seen for a follow-up. Patient's daughter was again present over the cell phone by a speaker phone. No new neurological symptoms. Patient complains of some headache migraine. No new focal symptoms. Foleys catheter has been removed. 06/24/2020 Patient was seen for a follow-up. Patient initially seen by Dr. Norman Stevenson on 06/23/2020, please refer to his note for details. Patient has history of MS since 1984, migraines, hypertension, hyperlipidemia. Patient currently not on any disease modifying agent. Patient came to the hospital for lower extremity weakness and tiredness lately. She has been feeling that her legs were unsteady and described them as "logs". Her symptoms started since 05/26/2020. Her gait has been getting worse for the last couple weeks. Patient also complains of left foot drop. No upper extremity weakness, visual disturbance or speech difficulty. Patient follows up with Dr. Quintin Ash. Patient's daughter was also on the speaker phone throughout the encounter. Patient has history of MS since age 40. Patient usually uses 4 pronged cane at home, although since 05/26/2020 when her symptoms began, she is using a walker. She has not had any falls. No problem with incontinence of urine. She does have history of bladder sling placed in the past. Patient has no urological symptoms but her bladder scan revealed "full bladder" therefore she is now on Foleys catheter. Patient states that she came because her legs felt so heavy that she could not lift or walk. She would shuffle. Patient's daughter has also noticed that she was having hallucinations. She could not get to raise her head and was slouched over. Last night she has recurrence of symptoms, when she states that she could barely lift her left leg. The symptoms lasted for 8 minutes in the left leg, also had some chest symptoms in the right leg. Patient states that she was recently seen by her neurologist who had recommended EEG, carotid Doppler and transcranial Doppler. Patient and her daughter wants to have these tests done here. Objective - Vital Signs Vital signs: Vital Signs Temp 98.9 F 06/25/20 07:00 Pulse 98 06/25/20 08:00 Resp 16 06/25/20 08:00 BP 128/79 06/25/20 07:00 Pulse Ox 96 06/25/20 08:04 Intake & Output 06/24/20 06/25/20 06/25/20 18:59 06:59 18:59 Intake Total 540 540 Output Total 50 250 Balance 490 290 Intake: Oral 540 540 Output: Urine 50 250 Other: Voiding Method Indwelling Catheter Indwelling Catheter Indwelling Catheter # Voids 2 2 - Exam Patient is an elderly female, very pleasant, in no acute distress. Patient is fully oriented, knows it is June 2020 and that she is in [facility] in [place]. Patient knows name of the current president Mr. Francois. Patient is alert awake oriented to time place and person. Speech and language functions are normal. Attention, concentration and fund of knowledge is adequate. On cranial examination, pupils are round and reacting to light, visual rosado are full on confrontation, extraocular muscles are intact with no nystagmus. Face is symmetric, tongue protrudes to the midline. Palatal elevation and sensation normal, hearing and shoulder shrug normal, facial sensation normal. Shoulder shrug normal. On muscle strength testing, there is no pronator drift and the strength is normal in arms distally and proximally. In the lower extremities have hip flexion is 4-, hip adduction 5, hip abduction 5-, knee extension 5, ankles and toes are normal bilaterally. No foot drop. Deep tendon reflexes are 1+ to 2 in the upper limbs, 2 at the knees, 1+ ankles and plantars downgoing. Sensory to touch is equal with no neglect. Cerebellar function showed no ataxia for [id number] testing. No dysdiadochokinesia. Tone and bulk of muscles normal. Gait did not check. On general examination, there is no carotid bruit or murmur, S1-S2 audible. Abdomen is soft nontender. Chest is clear. Peripheral pulses are present. No edema. - Labs CBC & Chem 7: 06/23/20 00:58 06/25/20 08:31 Labs: Abnormal Lab Results - Last 24 Hours (Table) 06/25/20 Range/Units 08:31 Chloride 109 H (98-107) mmol/L Calcium 8.2 L (8.4-10.2) mg/dL Total Protein 5.0 L (6.3-8.2) g/dL Albumin 2.7 L (3.5-5.0) g/dL Microbiology - Last 24 Hours (Table) 06/23/20 01:23 Urine Culture - Final Urine,Catheterized Escherichia coli 06/23/20 01:23 Blood Culture - Preliminary Blood No Growth after 48 hours 06/23/20 01:23 Blood Culture - Preliminary Blood No Growth after 48 hours Assessment and Plan Assessment: * Acute intermittent Bilateral lower extremity weakness, unclear cause: Could be due to pseudo-exacerbation of MS since has acute UTI (seems more likely) vs active MS replase---weakness improved. MRI of the brain, cervical and lumbar spine shows no radiographic evidence of MS exacerbation. No significant pathology noted on the MRI. * Altered mental status could be due to delirium (acute urinary tract infection) as well component of medication effect (on Gabapentin high dose, Tizandine, Tramadol)---mentation improved * Subjective complaints of left foot drop (Not seen on examination) * Acute urinary tract infection * History of migraine * History of restless leg syndrome * Hypertension * Hyperlipidemia * History of DVT Plan: * MRI of the brain with and without contrast revealed essentially stable white matter demyelination, no subacute infarct. Sinus disease. No active enhancing lesions. * MRI of the cervical spine with and without contrast shows stable findings, no acute abnormality. No enhancing lesion, no spinal stenosis. * MRI of the lumbar spine with and without contrast revealed essentially stable degenerative disc disease. Facet arthropathy. No significant spinal laurita nosis. Spinal curvature. * Orthostatics were rechecked today. Her supine blood pressure 134/80 with pulse of 91, sitting blood pressure 143/84, pulse rate 91. On standing up the blood pressure was 137/83, pulse 77. Negative orthostatics. * Carotid Doppler revealed less than 50% stenosis of bilateral ICA. There is minimal atherosclerotic plaque seen within the bilateral common carotid bifurcations with intimal thickening bilaterally. Thyroid nodule. Would defer thyroid nodule evaluation to primary physician. 2-D echo canceled by PCP, as it will be done as an outpatient. Patient was on aspirin 81 mg daily at home. She will be continued on aspirin 81 mg. May increase to 2 tablets of aspirin. * Patient is off tizanidine, as confusion started when she was started on this medication. * TSH 0.82, vitamin B12 409, folate level 10.6. Vitamin D 88.6 on 05/21/2020. Hemoglobin A1c 5.1 on 05/21/2020. Her B12 is borderline, we will start replacement. Patient can start vitamin B12 1000 mg sublingually daily. Lipid panel with cholesterol 124, LDL 53, HDL 36 and triglycerides 173. No indication for Lipitor, as her LDL is normal <70. * Upon discharge the patient needs to follow-up with her neurologist (Dr. Quintin Ash) within 1-2 weeks as an outpatient. Defer the modification of Gabapentin to her neurologist. * Neurologically clear for discharge. Recommend patient go to subacute rehab. * Discussed with primary physician in detail.
--- NOTE | 2020-06-25 14:40 | EEG ---
ELECTROENCEPHALOGRAM REPORT DATE OF SERVICE: 06/25/2020 PREAMBLE: This is a 74-year-old female with altered mental status, near syncope, and some hallucinations. This study is performed to rule out any epileptiform activity. EEG FINDINGS: This is a 21-channel routine EEG recording in a patient utilizing 10/20 international system with referential and bipolar montages. Background consists of well developed, well regulated, moderate voltage activity in 9-10 hertz alpha. Background is posterior dominant and reactive to eye opening and closing. Photic driving response was seen with some flash frequencies. Drowsiness was seen with appearance of bilaterally symmetric theta frequency rhythm. A stage II sleep was seen with presence of vertex waves, sleep spindles and K complex. No focal or generalized epileptiform activity was seen. The EKG channel showed no arrhythmia. IMPRESSION: This is a normal EEG during wakefulness, drowsiness and stage II sleep. No epileptiform activity was seen. MMODL / IJN: [id number] /
[2020-06-25] MEDS: polyethylene glycoL 3350 17 GM POWD.PACK PO SCH (21:21)
[2020-06-26 02:28] VITALS: TEMP 98.9
[2020-06-26 07:53] VITALS: BP 121/73; PULSE 89; RESP 18
[2020-06-26] MEDS: MELOXICAM 7.5 MG TAB PO SCH (08:43)
[2020-06-26] MEDS: CYANOCOBALAMIN 1,000 MCG/ML 1 ML VIAL IM SCH (08:44)
[2020-06-26] MEDS: GABAPENTIN 400 MG CAP PO SCH (08:44)
[2020-06-26] MEDS: ASPIRIN 81 MG PO SCH (08:44)
[2020-06-26] MEDS: FOLIC ACID 1 MG TAB PO SCH (08:44)
[2020-06-26] MEDS: TROSPIUM CHLORIDE 20 MG TABLET PO SCH (08:44)
--- NOTE | 2020-06-26 13:55 | P.DS ---
<Kevin Braxton - Last Filed: 06/26/20 15:31> Providers Expected date of discharge: 06/26/20 Hospital Course: Discharge Diagnosis: Progressive lower extremity weakness, improved likely secondary to MS exacerbation. UTI culture positive for E. coli Obstructive uropathy, continue home Trospium Chronic arthritic pain Multiple subcentimeter left thyroid nodules reported on imaging, need follow-up dedicated thyroid ultrasound. Hospital Course: Patient is a 74-year-old female with a past medical history of MS not currently under any treatment plan. She presented to the hospital on 06/23/20 with a chief complaint of progressively worsening weakness, dizziness upon standing, and right foot drop. Patient was admitted under our services with consult to neurology and underwent a full neurological workup. CT which was negative for acute intercranial process. Chest x-ray negative for acute cardiopulmonary process. MRI brain/cervical spine showing stable findings with no acute abnormalities. MRI lumbar spine reported as essentially stable degenerative disc disease with Facet arthropathy change, and no significant spinal stenosis or curvature. Carotid Dopplers completed showing less than 50% stenosis of the bilateral internal carotid arteries with minimal atherosclerotic plaque seen between the bilateral common carotid artery bifurcations with intimal thickening bilaterally. Subsequent finding on imaging of carotid Dopplers revealed multiple subcentimeter left thyroid nodules the largest of the nodules reported as 6 mm and appears as a complex cystic nodule in the left lobe. EKG revealed normal sinus rhythm at 70 bpm with no noted T-wave or ST abnormalities, no signs of acute ischemia. EEG also completed showing normal findings with no epileptiform activity seen with wakefulness, drowsiness, and stage II sleep. Patient was seen and fully evaluated by PT/OT. Patient's weakness, dizziness, and right foot drop resolved without any intervention. Patient being discharged home at this time with [facility] services. Also discussed importance with patient to wear her life alert at all times in case of emergencies. She is to follow-up with her PCP-Dr. Mckeon for post discharge follow-up as well as needed thyroid ultrasound. Pt instructed to make an appointment with Dr. Ash (her neurologist) in 1 week for follow-up and for continued long-term monitoring and management of her MS. Patient seen and examined at bedside this morning. She was resting comfortably has been ambulating without difficulties. 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 Patient reports resolution of weakness, dizziness, and foot drop. Patient denies having any other complaints or concerns including headache, lightheadedness, dizziness, dysphagia, numbness and tingling of tongue or face, difficulty with speech, chest pain or palpitations, shortness of breath, dyspnea with exertion, abdominal pain, nausea, vomiting, or experiencing any weakness/numbness/tingling in her extremities at this time. Vital signs reviewed and stable. General: Nontoxic, no distress and appears stated age. Derm: Skin warm and dry, normal coloration for ethnicity. Head: Atraumatic, normocephalic and symmetric. Eyes: EOMs intact, no lid lag, and anicteric sclera Mouth: no lip lesions, mucus membranes moist Cardiovascular: regular rate and rhythm with normal S1S2, no murmur, positive posterior tibial pulses bilaterally, and cap refill < 2 seconds. Lungs: Respirations even, regular, and unlabored on room air. Lungs CTA bilaterally, no rhonchi, no rales, no wheezing, and no accessory muscle usage. Abdominal: soft, nontender to palpation, no guarding, no appreciable organomegaly Ext: ROM intact. No gross muscle atrophy, no edema, no contractures Neuro: Speech clear, face symmetrical and CN II-XII grossly intact with no noted focal neuro deficits Psych: Alert and oriented to person, place, time, and situation. Appropriate and pleasant affect. A total of 45 minutes of time were spent preparing this complex discharge summary. Patient Condition at Discharge: Stable Plan - Discharge Summary Discharge Rx Participant: No New Discharge Prescriptions: New Folic Acid 1 mg PO DAILY tab Continue Eletriptan [Relpax] 40 mg PO DAILY PRN PRN Reason: migraines traMADol HCL [Ultram] 50 mg PO DAILY PRN PRN Reason: Pain Gabapentin 800 mg PO TID Denosumab [Prolia] 60 mg SQ Q180D Meloxicam [Mobic] 15 mg PO DAILY Meclizine [Antivert] 25 mg PO TID PRN PRN Reason: Vertigo Discontinued Trospium Chloride [Sanctura XR] 60 mg PO DAILY tiZANidine HCL 2 mg PO Q6H PRN PRN Reason: Muscle Spasm Discharge Medication List Eletriptan [Relpax] 40 mg PO DAILY PRN 11/07/15 [History] traMADol HCL [Ultram] 50 mg PO DAILY PRN 01/09/16 [History] Gabapentin 800 mg PO TID 07/15/17 [History] Denosumab [Prolia] 60 mg SQ Q180D 08/17/18 [History] Meclizine [Antivert] 25 mg PO TID PRN 06/23/20 [History] Meloxicam [Mobic] 15 mg PO DAILY 06/23/20 [History] Folic Acid 1 mg PO DAILY tab 06/25/20 [Rx] Follow up Appointment(s)/Referral(s): [facility], [NON-STAFF] - 1-2 Days [facility] [facility] [NON-STAFF] - 1 Week Eliz Mckeon MD [Primary Care Provider] - 1-2 days Quintin Ash DO [REFERRING] - 1 Week (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 ) Patient Instructions/Handouts: Urinary Tract Infection in Women (DC) Activity/Diet/Wound Care/Special Instructions: Activity: As tolerated Diet: Heart healthy diet Special Instructions: You are being discharged home with [facility] care services. As we discussed it is important for you to wear your life alert at all times in case of an emergency. Please take medications as prescribed and keep follow-up appointments with PCP as scheduled. Will also need to follow-up with Dr. Mckeon to have thyroid ultrasound completed to follow up with nodule. Thank you for allowing us to participate in your care, it was a pleasure getting to know you as far patient! Discharge/Stand Alone Forms: Who Do I Call? Discharge Disposition: HOME WITH HOME HEALTH SERVICES <Anabelle Johnson - Last Filed: 06/26/20 22:13> Providers Date of admission: 06/25/20 08:35 Attending physician: Hoa Reynolds MD Consults: 06/23/20 03:09 Consult Physician Routine Consulting Provider: Norman Stevenson Consult Reason/Comments: MS, weakness Do you want consulting provider notified?: Yes Primary care physician: Eliz Mckeon [place] [facility] Course: I discussed the care with Kevin Braxton NP and reviewed the findings and plan as documented in the note above. I did not physically speak with or examine the patient on this date. Imaging was reviewed. Discussed with nurse practitioner finding of abnormal thyroid gland and asked the patient be followed up. We have faxed a copy of the carotid Doppler report to the primary care physician's office Dr. Akhil Mcginnis. We have asked her to follow-up with outpatient thyroid ultrasound.
--- NOTE | 2020-07-03 07:51 | P.PN ---
Subjective Progress Note Date: 06/26/20 06/26/2020: Patient states that she is doing better. She is ready to go home. Patient is fully dressed. Offers no complaints. Patient is comfortably sitting in the recliner. 06/25/2020: Patient was seen for a follow-up. Patient's daughter was again present over the cell phone by a speaker phone. No new neurological symptoms. Patient complains of some headache migraine. No new focal symptoms. Foleys catheter has been removed. 06/24/2020 Patient was seen for a follow-up. Patient initially seen by Dr. Norman Stevenson on 06/23/2020, please refer to his note for details. Patient has history of MS since 1984, migraines, hypertension, hyperlipidemia. Patient currently not on any disease modifying agent. Patient came to the hospital for lower extremity weakness and tiredness lately. She has been feeling that her legs were unsteady and described them as "logs". Her symptoms started since . Her gait has been getting worse for the last couple weeks. Patient also complains of left foot drop. No upper extremity weakness, visual disturbance or speech difficulty. Patient follows up with Dr. Quintin Ash. Patient's daughter was also on the speaker phone throughout the encounter. Patient has history of MS since age 40. Patient usually uses 4 pronged cane at home, although since 05/26/2020 when her symptoms began, she is using a walker. She has not had any falls. No problem with incontinence of urine. She does have history of bladder sling placed in the past. Patient has no urological symptoms but her bladder scan revealed "full bladder" therefore she is now on Foleys catheter. Patient states that she came because her legs felt so heavy that she could not lift or walk. She would shuffle. Patient's daughter has also noticed that she was having hallucinations. She could not get to raise her head and was slouched over. Last night she has recurrence of symptoms, when she states that she could barely lift her left leg. The symptoms lasted for 8 minutes in the left leg, also had some chest symptoms in the right leg. Patient states that she was recently seen by her neurologist who had recommended EEG, carotid Doppler and transcranial Doppler. Patient and her daughter wants to have these tests done here. Objective - Vital Signs Vital signs: Vital Signs Temp 98.9 F 06/26/20 07:00 Pulse 89 06/26/20 07:00 Resp 18 06/26/20 13:33 BP 121/73 06/26/20 07:00 Pulse Ox 95 06/26/20 07:00 Intake & Output 06/26/20 06/26/20 06/27/20 06:59 18:59 06:59 Other: Voiding Method Toilet Toilet # Voids 1 1 - Exam Patient is an elderly female, very pleasant, in no acute distress. Mental status is completely normal. Patient is alert awake oriented to time place and person. Speech and language functions are normal. Attention, concentration and fund of knowledge is adequate. On cranial examination, pupils are round and reacting to light, visual rosado are full on confrontation, extraocular muscles are intact with no nystagmus. Face is symmetric, tongue protrudes to the midline. Palatal elevation and sen sation normal, hearing and shoulder shrug normal, facial sensation normal. Shoulder shrug normal. On muscle strength testing, there is no pronator drift and the strength is normal in arms distally and proximally. In the lower extremities have hip flexion is 4-, hip adduction 5, hip abduction 5-, knee extension 5, ankles and toes are normal bilaterally. No foot drop. Deep tendon reflexes are 1+ to 2 in the upper limbs, 1+ at the knees, 1+ ankles and plantars downgoing. Sensory to touch is equal with no neglect. Cerebellar function showed no ataxia for [id number] testing. No dysdiado chokinesia. Tone and bulk of muscles normal. Gait not checked. On general examination, there is no carotid bruit or murmur, S1-S2 audible. Abdomen is soft nontender. Chest is clear. Peripheral pulses are present. No edema. - Labs CBC & Chem 7: 06/23/20 00:58 06/25/20 08:31 Labs: Microbiology - Last 24 Hours (Table) 06/23/20 01:23 Blood Culture - Preliminary Blood No Growth after 72 hours 06/23/20 01:23 Blood Culture - Preliminary Blood No Growth after 72 hours Assessment and Plan Assessment: * Acute intermittent Bilateral lower extremity weakness, unclear cause: Could be due to pseudo-exacerbation of MS since has acute UTI (seems more likely) vs active MS replase---weakness improved. MRI of the brain, cervical and lumbar spine shows no radiographic evidence of MS exacerbation. No significant pathology noted on the MRI. * Altered mental status could be due to delirium (acute urinary tract infection) as well component of medication effect (on Gabapentin high dose, Tizandine, Tramadol)---mentation improved * Subjective complaints of left foot drop (Not seen on examination) * Acute urinary tract infection * History of migraine * History of restless leg syndrome * Hypertension * Hyperlipidemia * History of DVT Plan: * MRI of the brain with and without contrast revealed essentially stable white matter demyelination, no subacute infarct. Sinus disease. No active enhancing lesions. * MRI of the cervical spine with and without contrast shows stable findings, no acute abnormality. No enhancing lesion, no spinal stenosis. * MRI of the lumbar spine with and without contrast revealed essentially stable degenerative disc disease. Facet arthropathy. No significant spinal stenosis. Spinal curvature. * Orthostatics were rechecked today. Her supine blood pressure 134/80 with pulse of 91, sitting blood pressure 143/84, pulse rate 91. On standing up the blood pressure was 137/83, pulse 77. Negative orthostatics. * Carotid Doppler revealed less than 50% stenosis of bilateral ICA. There is minimal atherosclerotic plaque seen within the bilateral common carotid bifurcations with intimal thickening bilaterally. Thyroid nodule. Would defer thyroid nodule evaluation to primary physician. 2-D echo canceled by PCP, as it will be done as an outpatient. Patient was on aspirin 81 mg daily at home. She will be continued on aspirin 81 mg. May increase to 2 tablets of aspirin. * Patient is off tizanidine, as confusion started when she was started on this medication. * TSH 0.82, vitamin B12 409, folate level 10.6. Vitamin D normal 20 (20-79). Hemoglobin A1c 5.1 on 05/21/2020. Her B12 is borderline, has received replacement therapy. Patient can start vitamin B12 1000 mg sublingually daily. Lipid panel with cholesterol 124, LDL 53, HDL 36 and triglycerides 1 73. No indication for Lipitor, as her LDL is normal <70. * Upon discharge the patient needs to follow-up with her neurologist (Dr. Quintin Ash) within 1-2 weeks as an outpatient. Defer the modification of Gabapentin to her neurologist. * Neurologically clear for discharge. Recommend patient go to subacute rehab.
== END 2020-06-26 15:00 | disposition home health service (06) | DRG 59 ==
LOC: EC 00:35 → 6NMEDSUR 04:58 → OBSVTOIN 06-25 08:35
PROVIDERS: ADMIT Internal Medicine; ATTEND Internal Medicine
DX: G35 Multiple sclerosis (principal); N39.0 Urinary tract infection, site not specified; M47.9 Spondylosis, unspecified; M21.372 Foot drop, left foot; M51.36 Other intervertebral disc degeneration, lumbar region; N13.9 Obstructive and reflux uropathy, unspecified; B96.20 Unspecified Escherichia coli [E. coli] as the cause of diseases classified elsewhere; E04.2 Nontoxic multinodular goiter; E78.5 Hyperlipidemia, unspecified; G25.81 Restless legs syndrome; M19.90 Unspecified osteoarthritis, unspecified site; G43.909 Migraine, unspecified, not intractable, without status migrainosus; G89.29 Other chronic pain; I10 Essential (primary) hypertension; Z87.19 Personal history of other diseases of the digestive system; Z79.1 Long term (current) use of non-steroidal anti-inflammatories (NSAID); Z79.899 Other long term (current) drug therapy; Z86.711 Personal history of pulmonary embolism; Z86.718 Personal history of other venous thrombosis and embolism; Z87.440 Personal history of urinary (tract) infections; Z98.42 Cataract extraction status, left eye; Z98.41 Cataract extraction status, right eye; Z96.1 Presence of intraocular lens; Z20.822 Contact with and (suspected) exposure to COVID-19; Z96.652 Presence of left artificial knee joint; Z90.49 Acquired absence of other specified parts of digestive tract; Z88.1 Allergy status to other antibiotic agents; Z88.8 Allergy status to other drugs, medicaments and biological substances
CPT/HCPCS: 36415; 70450; 70553; 71045; 72156; 72158; 80048; 80053; 81001; 82607; 82652; 82746; 83605; 83735; 84443; 84484; 85025; 85610; 85730; 87040; 87077; 87086; 87186; 87635; 93005; 93880; 94760; 95819; 96374; 99285

== ENCOUNTER → 2020-09-05 | Outpatient (CLI) | payer MEDICARE, BC ==
--- NOTE | 2020-09-05 16:08 | US ---
EXAMINATION TYPE: US kidneys/renal and bladder DATE OF EXAM: 09/05/2020 COMPARISON: 10/24/2019 CLINICAL HISTORY: 75-year-old female recurrent UTI Z87.440. UTI hx of stones pelvic left kidney. TECHNIQUE: Multiple sonographic images of the kidneys and bladder are obtained. FINDINGS: EXAM MEASUREMENTS: Right Kidney: 10.0 x 3.6 x 4.3 cm Left Kidney: 7.7 x 4.1 x 5.6 cm Right Kidney: Cystic area LP 2.2 x 1.9 x 1.9 cm Left Kidney: Cystic area up 1.4 x 1.6 x 1.8 cm. There appears to be moderate hydronephrosis visualize d. Bladder: Anechoic Bilateral Jets seen: Yes, though the left ureteral jet appears weaker. IMPRESSION: 1. Bilateral benign renal cysts measuring up to 2.2 cm. 2. There appears to be moderate left-sided hydronephrosis, new from 10/24/2019. Correlate for left-calvin ed renal colic and a partial obstructive uropathy given the weak left ureteral jet.
== END | disposition home or self-care (01) ==
LOC: RADUSWWP 14:45
PROVIDERS: ATTEND Obstetrics & Gynecology
DX: N28.1 Cyst of kidney, acquired (principal); N13.9 Obstructive and reflux uropathy, unspecified
CPT/HCPCS: 76770

== ENCOUNTER → 2020-09-12 | Outpatient (CLI) | payer MEDICARE, BC ==
--- NOTE | 2020-09-13 10:12 | US ---
EXAMINATION TYPE: US thyroid st tissue head/neck DATE OF EXAM: 09/12/2020 COMPARISON: NONE CLINICAL HISTORY: E04.2 THYROID NODULE. GLAND SIZE: Right Lobe: 3.4 x 1.4 x 1.4 cm Overall Parenchyma: heterogenous Left Lobe: 3.5 x 1.2 x 1.0 cm Overall Parenchyma: heterogeneous Isthmus Thickness: 0.3 cm NODULES RIGHT: # of nodules measured on right: 1 1. 0.5 X 0.4 x 0.3 cm, mid , solid or almost completely solid, isoechoic nodule, which is wider allison n tall, with ill-defined margins, without echogenic foci. Prior size: No previous LEFT: # of nodules measured on left: 1 1. 0.6 X 0.3 x 0.5 cm, mid , mixed cystic and solid, hypoechoic nodule, which is wider than tall, w ith smooth margins, without echogenic foci. Prior size: No previous ISTHMUS: # of nodules measured in the isthmus: 0 Bilateral neck scanned, no evidence of lymphadenopathy. Bilateral diffusely heterogeneous thyroid IMPRESSION: 1. Small subcentimeter thyroid nodules. 2017 ACR TI-RADS LEVEL: TR-RADS 3 - Mildly Suspicious: Follow if > 1.5 cm, FNA if > 2.5 cm *Highest TI-RADS level nodule reported
== END | disposition home or self-care (01) ==
LOC: RADUSWWP 14:16
PROVIDERS: ATTEND Family Medicine
DX: E04.2 Nontoxic multinodular goiter (principal)
CPT/HCPCS: 76536

== ENCOUNTER → 2020-09-12 | Outpatient (CLI) | payer MEDICARE, BC ==
[~2020-09-12] MED LIST changes: +DENOSUMAB 60 MG/ML 1 ML SYRINGE SQ NR; -HYDROmorphone 0.5 MG/0.5 ML SYRINGE IVP PRN; -LACTATED RINGERS 1,000 ML IV SCH; -ONDANSETRON 4 MG/2 ML VIAL IVP PRN; -fentaNYL (PF) 50 MCG/ML 2 ML AMP IV PRN
[2020-09-12 14:35] VITALS: BP 150/84; PULSE 78; RESP 16; TEMP 97.9
== END ==
LOC: PROCWHC3 14:24
PROVIDERS: ATTEND Nurse Practitioner Family
DX: M81.0 Age-related osteoporosis without current pathological fracture (principal); Z88.8 Allergy status to other drugs, medicaments and biological substances; Z88.1 Allergy status to other antibiotic agents; Z91.041 Radiographic dye allergy status
CPT/HCPCS: 96372; J0897

== ENCOUNTER → 2020-10-28 | Outpatient (CLI) | payer MEDICARE, BC ==
--- NOTE | 2020-10-28 11:51 | BD ---
EXAMINATION TYPE: Axial Bone Density DATE OF EXAM: 10/28/2020 COMPARISON: 08/29/2018 CLINICAL HISTORY: Height: 61 IN Weight: 140 LBS FRAX RISK QUESTIONS: History of Fracture in Adulthood: LT ANKLE AGE 64 RISK FACTORS HISTORY OF: Family History of Osteoporosis: YES AUNTS P X4, Diet low in dairy products/other sources of calcium: YES Postmenopausal woman: AGE 59 Take estrogen and/or progesterone medications: NOT NOW How lon YEARS Lost more than 2 inches in height since high school: YES 5" MEDICATIONS: Osteoporosis Medications: YES Which medication: Prolia How Lon YEARS Additional Medications: CALCIUM, VIT D, PROLIA, CHOLESTEROL MEDS, METOPROLOL, GABAPENTIN, EXAM MEASUREMENTS: Bone mineral densitometry was performed using the [employer] System. Bone mineral density as measured about the Lumbar spine is: ----- L1-L4(G/cm2): 1.106 T Score Values are as follows: ----- L2: -1.0 ----- L3: -0.7 ----- L4: -0.9 ----- L1-L4: -0.6 Bone mineral density has: Increased 2.6% since study of: 08/29/2018 Bone mineral density about the R hip (g/cm2): 0.837 Bone mineral density about the L hip (g/cm2): 0.776 T Score values are as follows: -----R Neck: -1.4 -----L Neck: -1.9 -----R Total: -0.9 -----L Total: -0.2 Bone mineral density has: Decreased -2.7% since study of: 08/29/2018 IMPRESSION: No evidence for osteoporosis or osteopenia. NOTE: T-SCORE=SD OF THE YOUNG ADULT MEAN.
--- NOTE | 2020-10-29 09:57 | MM ---
Reason for exam: screening (asymptomatic). Last mammogram was performed 1 year and 1 month ago. History: Patient is postmenopausal. Family history of breast cancer in paternal cousin. Took hormonal contraceptives for 3 years. Took estrogen for 1 month. Physical Findings: A clinical breast exam by your physician is recommended on an annual basis and results should be correlated with mammographic findings. MG 3D Screening Mammo W/Cad Bilateral CC and MLO view(s) were taken. Prior study comparison: October 11, 2019, bilateral MG 3d screening mammo w/cad. March 15, 2019, right breast US breast RT. August 29, 2018, bilateral MG 3d screening mammo w/cad. The breast tissue is heterogeneously dense. This may lower the sensitivity of mammography. There are benign appearing round, linear calcifications bilaterally. There is no discrete abnormality. ASSESSMENT: Benign, BI-RAD 2 RECOMMENDATION: Routine screening mammogram of both breasts in 1 year.
== END | disposition home or self-care (01) ==
LOC: RADBDWWP 10:09
PROVIDERS: ATTEND Family Medicine
DX: Z12.31 Encounter for screening mammogram for malignant neoplasm of breast (principal); Z78.0 Asymptomatic menopausal state; Z80.3 Family history of malignant neoplasm of breast; Z79.3 Long term (current) use of hormonal contraceptives
CPT/HCPCS: 77063; 77067; 77080

== ENCOUNTER → 2021-03-10 | Outpatient (CLI) | payer MEDICARE, BC ==
--- NOTE | 2021-03-10 15:18 | US ---
EXAMINATION TYPE: US kidneys/renal and bladder DATE OF EXAM: 03/10/2021 COMPARISON: 09/05/2020 CLINICAL HISTORY: 75-year-old female N28.1 RENAL CYST, N13.30 HYDRONEPHROSIS. Follow-up know cysts an d questionable hydronephrosis TECHNIQUE: Multiple sonographic images of the kidneys are obtained. No bladder imaging per order. FINDINGS: EXAM MEASUREMENTS: Right Kidney: 9.3 x 4.4 x 4.4 cm Left Kidney: 8.7 x 5.9 x 7.9 cm Right Kidney: bowel gas limits exam, inferior pole cyst seen measuring 1.8 x 2.0 x 1.5cm (versus 2.2 cm, previously Left Pelvic Kidney: multiple cysts seen, largest superior pole = 3.0 x 3.0 x 2.8cm. The cystic struct ures do not appear to connect. This argues against any hydronephrosis. Bladder: Tree Farmer notes: order states no bladder imaging IMPRESSION: 1. Low-lying/ectopic left kidney demonstrating multiple cysts measuring up to 3.0 cm. The current exa m demonstrates that the cysts do not connect. This argues against the presence of any hydronephrosis. 2. No hydronephrosis right kidney. Benign 2.0 cm lower pole cyst.
== END | disposition home or self-care (01) ==
LOC: RADUSWWP 13:08
PROVIDERS: ATTEND Urology
DX: N28.1 Cyst of kidney, acquired (principal)
CPT/HCPCS: 76770

== ENCOUNTER → 2021-04-15 | Outpatient (CLI) | payer MEDICARE, BC ==
--- NOTE | 2021-04-15 17:35 | MR ---
EXAMINATION TYPE: MR lumbar spine wo con DATE OF EXAM: 04/15/2021 COMPARISON: MR lumbar spine 06/24/2020 HISTORY: Back pain for a few years. TECHNIQUE: Multiplanar, multisequence images of the lumbar spine were acquired without IV contrast. L1-L2: Loss of disc height signal is present consistent with disc desiccation and degenerative disc d isease. No significant foraminal encroachment. Posterior disc bulge causes only minimal anterior mass effect on the thecal sac. L2-L3: Normal disc appearance without desiccation. No herniation, protrusion or disc bulging. No ca nal stenosis is present. There is circumferential extension of endplate disc complex causing some min imal encroachment on the inferior aspect of the right neural foramen, posterior broad-based disc bulg e causes slight anterior mass effect on the thecal sac. There is facet arthropathy with hypertrophy l igamentum flavum present. There is some encroachment on the lateral recesses. L3-L4: Minimal posterior disc bulge causes only slight anterior mass effect on the thecal sac. There is facet arthropathy with hypertrophy ligamentum flavum. No herniation, protrusion or disc bulging. No canal stenosis is present. Foramina are patent bilaterally. L4-L5: Normal disc appearance without desiccation. No herniation, protrusion or disc bulging. Facet arthropathy changes present with hypertrophy ligamentum flavum, some encroachment on the lateral rece sses is noted. Foramina are patent bilaterally. L5-S1: Normal disc appearance without desiccation. No herniation, protrusion or disc bulging. There is facet arthropathy with hypertrophy ligamentum flavum, some encroachment on the lateral recesses le ft greater than right. No evident foraminal encroachment. Lumbar segments are intact. No paraspinal masses are identified. Conus medullaris has a normal appe arance. There is a scoliotic curvature. No evident spinal stenosis. Lumbar vertebral bodies show pres erved height, there is multilevel spondylosis with endplate discogenic marrow signal change. Kyphosis is centered at T11-12, accentuated lordosis in the lumbar region, anterior wedging at T12. Left kidn ey is likely ptotic, there is a malformation present. Cortical cysts are associated with the right ki dney. Cystic changes are also associated with the left pelvic kidney. IMPRESSION: Scoliosis, facet arthropathy, mild degenerative disc disease is similar to prior exam, additional fin dings above.
== END | disposition home or self-care (01) ==
LOC: RADMRIMAIN 14:55
PROVIDERS: ATTEND Psychiatry & Neurology Neurology
DX: M51.36 Other intervertebral disc degeneration, lumbar region (principal); M47.816 Spondylosis without myelopathy or radiculopathy, lumbar region; M41.86 Other forms of scoliosis, lumbar region; N28.1 Cyst of kidney, acquired
CPT/HCPCS: 72148

== ENCOUNTER → 2021-05-09 | Outpatient (CLI) | payer MEDICARE, BC ==
[2021-05-09 18:17] LABS: Basophils # (A) 0.04 X 10*3/uL (0.00-0.10); Basophils % (A) 0.9 %; Eosinophils # (A) 0.11 X 10*3/uL (0.04-0.35); Eosinophils % (A) 2.4 %; HCT 37.7 % (37.2-46.3); HGB 11.2 g/dL (12.0-15.0); Immature Grans, Automated 0.2 %; Lymphocytes # (A) 1.35 X 10*3/uL (0.90-5.00); Lymphocytes % (A) 29.9 %; MCH 27.5 pg (27.0-32.0); MCHC 29.7 g/dL (32.0-37.0); MCV 92.4 fL (80.0-97.0); Mean Platelet Volume 9.7 fL (9.5-12.2); Monocytes # (A) 0.34 X 10*3/uL (0.20-1.00); Monocytes % (A) 7.5 %; NRBC Per 100 WBC 0 /100 WBCS (0.0-0.0); Neutrophils # (A) 2.66 X 10*3/uL (1.80-7.70); Neutrophils % (A) 59.1 %; Platelet Count 263 X 10*3/uL (140-440); RBC 4.08 X 10*6/uL (4.10-5.20); RDW 15.9 % (11.5-14.5); WBC 4.51 X 10*3/uL (4.50-10.00)
== END | disposition home or self-care (01) ==
LOC: LABWHC1 12:30
PROVIDERS: ATTEND Psychiatry & Neurology Neurology
DX: R53.83 Other fatigue (principal)
CPT/HCPCS: 36415; 83036; 85025

== ENCOUNTER → 2022-02-04 | Outpatient (CLI) | payer MEDICARE, BC ==
--- NOTE | 2022-02-05 15:22 | MM ---
Reason for Exam: Screening (asymptomatic). Last mammogram was performed 1 year(s) and 3 month(s) ago. Patient History: Menarche at age 16. First Full-Term at age 25. Postmenopausal. Estrogen for 1 month. Patient used Hormonal Contraceptives for 3 years. Paternal cousin had breast cancer. Risk Values: Viji 5 year model risk: 1.8%. NCI Lifetime model risk: 3.6%. Prior Study Comparison: 08/29/2018 Bilateral Screening Mammogram, [facility]. 10/11/2019 Bilateral Screening Mammogram, [facility]. 10/28/2020 Bilateral Screening Mammogram, [facility]. Tissue Density: The breast tissue is heterogeneously dense. This may lower the sensitivity of mammography. Findings: Analyzed By CAD. Pattern appears symmetrical and stable. No significant interval change is evident. No suspicious groups of microcalcifications, spiculated or lobular masses, architectural distortion or other secondary signs of malignancy are mammographically apparent. Overall Assessment: Benign, BI-RAD 2 Management: Screening Mammogram of both breasts in 1 year. A negative mammogram report should not preclude additional follow up of suspicious palpable abnormalities. Patient should continue monthly self breast exam. A clinical breast exam by your physician is recommended on an annual basis and results should be correlated with mammographic findings. Electronically signed and approved by: Reese Baumann D.O. Radiologis
== END | disposition home or self-care (01) ==
LOC: RADMAMWWP 12:51
PROVIDERS: ATTEND Family Medicine
DX: Z12.31 Encounter for screening mammogram for malignant neoplasm of breast (principal); Z78.0 Asymptomatic menopausal state; Z80.3 Family history of malignant neoplasm of breast
CPT/HCPCS: 77063; 77067

== ENCOUNTER 2022-06-11 12:02 | Observation (INO) | payer MEDICARE, BC ==
[2022-06-11] MEDS ORDERED: ONDANSETRON 4 MG/2 ML VIAL IVP STA (12:15)
[2022-06-11] MEDS ORDERED: SODIUM CHLORIDE 0.9% 500 ML 500 ML IV STA (12:15)
[2022-06-11] MEDS ORDERED: MORPHINE SULFATE 4 MG/ML SYRINGE IVP STA (12:46)
--- NOTE | 2022-06-11 12:46 | ED ---
Abdominal Pain HPI - General Chief Complaint: Nausea/Vomiting/Diarrhea Stated Complaint: NVD Time Seen by Provider: 06/11/22 12:10 Source: patient, EMS, RN notes reviewed, old records reviewed Mode of arrival: EMS Limitations: no limitations - History of Present Illness Initial Comments: This is a 76-year-old female to the emergency department evaluation. Patient presents today for evaluation regards to nausea vomiting diarrhea bowel pain weakness not feeling well. Patient states unable to keep anything down for patient states she can't take sips of Pepsi but has been severely getting worse and even after a few symptoms of Pepsi she vomits. History of bowel resection history of cholecystectomy. No recent surgeries. No fevers no travel history no sick contacts patient does have family member with similar complaint happens to be with her in the hospital today MD Complaint: abdominal pain, other (Nausea vomiting diarrhea) -: days(s) (2) Location: diffuse, suprapubic Radiation: suprapubic Migration to: suprapubic Severity scale (1-10): 7 Quality: fullness, sharp Consistency: intermittent Improves With: nothing Worsens With: nothing Associated Symptoms: nausea, vomiting, diarrhea Treatments Prior to Arrival: other (0) - Related Data Home Medications Medication Instructions Recorded Confirmed Eletriptan [Relpax] 40 mg PO DAILY PRN 11/07/15 06/11/22 Potassium Chloride ER [K-Dur 10] 10 meq PO DAILY 06/11/22 06/11/22 Pregabalin [Lyrica] 300 mg PO BID 06/11/22 06/11/22 Rosuvastatin Calcium 5 mg PO DAILY 06/11/22 06/11/22 amLODIPine [Norvasc] 2.5 mg PO DAILY 06/11/22 06/11/22 Allergies Allergy/AdvReac Type Severity Reaction Status Date / Time iodine Allergy Rash/Hives Verified 06/11/22 15:00 tropicamide [From Mydriacyl] Allergy Itching Verified 06/11/22 15:00 carbamazepine [From Tegretol] AdvReac Nausea Verified 06/11/22 15:00 ciprofloxacin [From Cipro] AdvReac lt leg pain Verified 06/11/22 15:00 fosinopril AdvReac Cough Verified 06/11/22 15:00 lisinopril AdvReac Cough Verified 06/11/22 15:00 topiramate [From Topamax] AdvReac Nausea & Verified 06/11/22 15:00 Vomiting & Diarrhea Review of Systems ROS Statement: Those systems with pertinent positive or pertinent negative responses have been documented in the HPI. ROS Other: All systems not noted in ROS Statement are negative. Past Medical History Past Medical History: Deep Vein Thrombosis (DVT), Hyperlipidemia, Hypertension, Pneumonia, Pulmonary Embolus (PE) Additional Past Medical History / Comment(s): ruptured bowel 06/2015. LEFT LEG DVT. RLS, urinary leakage. MS History of Any Multi-Drug Resistant Organisms: None Reported Past Surgical History: Bowel Resection, Cholecystectomy, Hernia Repair, Joint Replacement, Orthopedic Surgery Additional Past Surgical History / Comment(s): L KNEE replacement. RIGHT SHOULDER SURGERY, rt knee meniscus, colostomy reversal, ptosis tigist, cataract tigist with lens implants Past Anesthesia/Blood Transfusion Reactions: No Reported Reaction Past Psychological History: No Psychological Hx Reported Smoking Status: Never smoker - Past Family History Father Family Medical History: Cancer Mother Family Medical History: Cancer General Exam Limitations: no limitations General appearance: alert, in no apparent distress Head exam: Present: atraumatic, normocephalic, normal inspection Eye exam: Present: normal appearance, PERRL, EOMI. Absent: scleral icterus, conjunctival injection, periorbital swelling ENT exam: Present: normal exam, mucous membranes moist Neck exam: Present: normal inspection. Absent: tenderness, meningismus, lymphadenopathy Respiratory exam: Present: normal lung sounds bilaterally. Absent: respiratory distress, wheezes, rales, rhonchi, stridor Cardiovascular Exam: Present: regular rate, normal rhythm, normal heart sounds. Absent: systolic murmur, diastolic murmur, rubs, gallop, clicks GI/Abdominal exam: Present: soft, normal bowel sounds. Absent: distended, tenderness, guarding, rebound, rigid Extremities exam: Present: normal inspection, full ROM, normal capillary refill. Absent: tenderness, pedal edema, joint swelling, calf tenderness Back exam: Present: normal inspection Neurological exam: Present: alert, oriented X3, CN II-XII intact Psychiatric exam: Present: normal affect, normal mood Skin exam: Present: warm, dry, intact, normal color. Absent: rash Course Vital Signs 06/11/22 06/11/22 06/11/22 12:04 13:10 15:00 Temperature 98.9 F Pulse Rate 89 84 66 Respiratory 18 18 19 Rate Blood Pressure 173/90 152/80 163/71 O2 Sat by Pulse 100 98 96 Oximetry - Reevaluation(s) Reevaluation #1: 06/11/22 18:30 Medical record is reviewed Reevaluation #2: 06/11/22 18:30 Patient informed of results and questions answered Reevaluation #3: 06/11/22 18:30 She has no real improvement here in the ER despite hydration and symptom control Reevaluation #4: 06/11/22 18:30 Was pt. sent in by a medical professional or institution? @ -no Did you speak to anyone other than the patient for history? @ -yes Did you review nursing and triage notes? @ -agree Were old charts reviewed? @ -no Differential Diagnosis? @ -prior ED visits were nonContributory EKG interpreted by me (3pts min.)? @ -yes X-rays interpreted by me (1pt min.)? @ -yes CT interpreted by me (1pt min.)? @ -no U/S interpreted by me (1pt. min.)? @ -no What testing was considered but not performed? (CT, X-rays, U/S, labs)? Why? @ -none What meds were considered but not given? Why? @ -none Did you discuss the management of the patient with other professionals? @ -no Did you reconcile home meds? @ -yes Was smoking cessation discussed for >3mins.? @ -no Was critical care preformed (if so, how long)? @ -no Were there social determinants of health that impacted care today? How? (Homelessness, low income, unemployed, alcoholism, drug addiction, transportation, low edu. Level, literacy, decrease access to med. care, assisted, rehab)? @ -no Was there de-escalation of care discussed even if they declined? (Discuss DNR or withdrawal of care, Hospice)? @ -no What co-morbidities impacted this encounter? (DM, HTN, Smoking, COPD, CAD, Cancer, CVA, Hep., AIDS, mental health diagnosis, sleep apnea, morbid obesity)? @ -no Was patient admitted / discharged? @ -admit Undiagnosed new problem with uncertain prognosis? @ -no Drug Therapy requiring intensive monitoring for toxicity (Heparin, Nitro, Insulin, Cardizem)? @ -no Were any procedures done? @ -no Diagnosis/symptom? @ -Gastroenteritis Acute, or Chronic, or Acute on Chronic? @ -acute Uncomplicated (without systemic symptoms) or Complicated (systemic symptoms)? @ -uncomplicated Side effects of treatment? @ -none Exacerbation, Progression, or Severe Exacerbation] @ - Poses a threat to life or bodily function? @ -no - Consultations Consultation #1: Spoke with sound physicians we'll admit this patient Medical Decision Making - Medical Decision Making 76 female emergency department for evaluation nausea vomiting and diarrhea abdominal pain history of abdominal surgery CT is negative patient is informed results here in the ER does not feel couple with discharge home prefers observation will admit for symptom control - Lab Data Result diagrams: 06/11/22 13:06 06/11/22 13:06 Lab Results 06/11/22 06/11/22 06/11/22 Range/Units 13:06 13:06 13:06 WBC 8.0 (3.8-10.6) k/uL RBC 5.11 (3.80-5.40) m/uL Hgb 15.5 (11.4-16.0) gm/dL Hct 45.0 (34.0-46.0) % MCV 88.1 (80.0-100.0) fL MCH 30.4 (25.0-35.0) pg MCHC 34.5 (31.0-37.0) g/dL RDW 12.6 (11.5-15.5) % Plt Count 184 (150-450) k/uL MPV 8.3 Neutrophils % 78 % Lymphocytes % 14 % Monocytes % 5 % Eosinophils % 1 % Basophils % 0 % Neutrophils # 6.2 (1.3-7.7) k/uL Lymphocytes # 1.1 (1.0-4.8) k/uL Monocytes # 0.4 (0-1.0) k/uL Eosinophils # 0.1 (0-0.7) k/uL Basophils # 0.0 (0-0.2) k/uL PT 10.8 (9.0-12.0) sec INR 1.0 (<1.2) APTT 23.7 (22.0-30.0) sec Sodium 142 (137-145) mmol/L Potassium 4.1 (3.5-5.1) mmol/L Chloride 107 (98-107) mmol/L Carbon Dioxide 22 (22-30) mmol/L Anion Gap 13 mmol/L BUN 19 H (7-17) mg/dL Creatinine 0.69 (0.52-1.04) mg/dL Est GFR (CKD-EPI)AfAm >90 (>60 ml/min/1.73 sqM) Est GFR (CKD-EPI)NonAf 85 (>60 ml/min/1.73 sqM) Glucose 80 (74-99) mg/dL Plasma Lactic Acid Rasta (0.7-2.0) mmol/L Calcium 8.9 (8.4-10.2) mg/dL Phosphorus 2.8 (2.5-4.5) mg/dL Magnesium 2.0 (1.6-2.3) mg/dL Total Bilirubin 2.0 H (0.2-1.3) mg/dL AST 31 (14-36) U/L ALT 18 (4-34) U/L Alkaline Phosphatase 87 (38-126) U/L Troponin I (0.000-0.034) ng/mL NT-Pro-B Natriuret Pep pg/mL Total Protein 7.0 (6.3-8.2) g/dL Albumin 4.2 (3.5-5.0) g/dL Urine Color Urine Appearance (Clear) Urine pH (5.0-8.0) Ur Specific [place] (1.001-1.035) Urine Protein (Negative) Urine Glucose (UA) (Negative) Urine Ketones (Negative) Urine Blood (Negative) Urine Nitrite (Negative) Urine Bilirubin (Negative) Urine Urobilinogen (<2.0) mg/dL Ur Leukocyte Esterase (Negative) Urine RBC (0-5) /hpf Urine WBC (0-5) /hpf Ur Squamous Epith Cells (0-4) /hpf Urine Bacteria (None) /hpf Urine Mucus (None) /hpf 06/11/22 06/11/22 06/11/22 Range/Units 13:06 13:06 13:06 WBC (3.8-10.6) k/uL RBC (3.80-5.40) m/uL Hgb (11.4-16.0) gm/dL Hct (34.0-46.0) % MCV (80.0-100.0) fL MCH (25.0-35.0) pg MCHC (31.0-37.0) g/dL RDW (11.5-15.5) % Plt Count (150-450) k/uL MPV Neutrophils % % Lymphocytes % % Monocytes % % Eosinophils % % Basophils % % Neutrophils # (1.3-7.7) k/uL Lymphocytes # (1.0-4.8) k/uL Monocytes # (0-1.0) k/uL Eosinophils # (0-0.7) k/uL Basophils # (0-0.2) k/uL PT (9.0-12.0) sec INR (<1.2) APTT (22.0-30.0) sec Sodium (137-145) mmol/L Potassium (3.5-5.1) mmol/L Chloride (98-107) mmol/L Carbon Dioxide (22-30) mmol/L Anion Gap mmol/L BUN (7-17) mg/dL Creatinine (0.52-1.04) mg/dL Est GFR (CKD-EPI)AfAm (>60 ml/min/1.73 sqM) Est GFR (CKD-EPI)NonAf (>60 ml/min/1.73 sqM) Glucose (74-99) mg/dL Plasma Lactic Acid Rasta 1.0 (0.7-2.0) mmol/L Calcium (8.4-10.2) mg/dL Phosphorus (2.5-4.5) mg/dL Magnesium (1.6-2.3) mg/dL Total Bilirubin (0.2-1.3) mg/dL AST (14-36) U/L ALT (4-34) U/L Alkaline Phosphatase (38-126) U/L Troponin I <0.012 (0.000-0.034) ng/mL NT-Pro-B Natriuret Pep 58 pg/mL Total Protein (6.3-8.2) g/dL Albumin (3.5-5.0) g/dL Urine Color Urine Appearance (Clear) Urine pH (5.0-8.0) Ur Specific [place] (1.001-1.035) Urine Protein (Negative) Urine Glucose (UA) (Negative) Urine Ketones (Negative) Urine Blood (Negative) Urine Nitrite (Negative) Urine Bilirubin (Negative) Urine Urobilinogen (<2.0) mg/dL Ur Leukocyte Esterase (Negative) Urine RBC (0-5) /hpf Urine WBC (0-5) /hpf Ur Squamous Epith Cells (0-4) /hpf Urine Bacteria (None) /hpf Urine Mucus (None) /hpf 06/11/22 Range/Units 15:18 WBC (3.8-10.6) k/uL RBC (3.80-5.40) m/uL Hgb (11.4-16.0) gm/dL Hct (34.0-46.0) % MCV (80.0-100.0) fL MCH (25.0-35.0) pg MCHC (31.0-37.0) g/dL RDW (11.5-15.5) % Plt Count (150-450) k/uL MPV Neutrophils % % Lymphocytes % % Monocytes % % Eosinophils % % Basophils % % Neutrophils # (1.3-7.7) k/uL Lymphocytes # (1.0-4.8) k/uL Monocytes # (0-1.0) k/uL Eosinophils # (0-0.7) k/uL Basophils # (0-0.2) k/uL PT (9.0-12.0) sec INR (<1.2) APTT (22.0-30.0) sec Sodium (137-145) mmol/L Potassium (3.5-5.1) mmol/L Chloride (98-107) mmol/L Carbon Dioxide (22-30) mmol/L Anion Gap mmol/L BUN (7-17) mg/dL Creatinine (0.52-1.04) mg/dL Est GFR (CKD-EPI)AfAm (>60 ml/min/1.73 sqM) Est GFR (CKD-EPI)NonAf (>60 ml/min/1.73 sqM) Glucose (74-99) mg/dL Plasma Lactic Acid Rasta (0.7-2.0) mmol/L Calcium (8.4-10.2) mg/dL Phosphorus (2.5-4.5) mg/dL Magnesium (1.6-2.3) mg/dL Total Bilirubin (0.2-1.3) mg/dL AST (14-36) U/L ALT (4-34) U/L Alkaline Phosphatase (38-126) U/L Troponin I (0.000-0.034) ng/mL NT-Pro-B Natriuret Pep pg/mL Total Protein (6.3-8.2) g/dL Albumin (3.5-5.0) g/dL Urine Color Yellow Urine Appearance Cloudy H (Clear) Urine pH 5.5 (5.0-8.0) Ur Specific [place] 1.016 (1.001-1.035) Urine Protein Trace H (Negative) Urine Glucose (UA) Negative (Negative) Urine Ketones 3+ H (Negative) Urine Blood Trace H (Negative) Urine Nitrite Negative (Negative) Urine Bilirubin Negative (Negative) Urine Urobilinogen <2.0 (<2.0) mg/dL Ur Leukocyte Esterase Moderate H (Negative) Urine RBC 6 H (0-5) /hpf Urine WBC 2 (0-5) /hpf Ur Squamous Epith Cells 8 H (0-4) /hpf Urine Bacteria Rare H (None) /hpf Urine Mucus Few H (None) /hpf - EKG Data -: EKG Interpreted by Me (EKG is sinus rhythm 80 [place] 221 QRS 83 QTc 421) - Radiology Data Radiology results: report reviewed (CT of the abdomen and pelvis is negative for acute disease), image reviewed Disposition Clinical Impression: Weakness, Dehydration, Gastroenteritis, Abdominal pain Disposition: HOME SELF-CARE Condition: Good Instructions (If sedation given, give patient instructions): Acute Nausea and Vomiting (ED), Acute Diarrhea (ED) Is patient prescribed a controlled substance at d/c from ED?: No Referrals: Eliz Mckeon MD [Primary Care Provider] - 1-2 days Time of Disposition: 16:30
[2022-06-11 13:26] LABS: Basophils % (A) 0 %; Eosinophils # (A) 0.1 k/uL (0-0.7); Eosinophils % (A) 1 %; HGB 15.5 gm/dL (11.4-16.0); Lymphocytes # (A) 1.1 k/uL (1.0-4.8); Lymphocytes % (A) 14 %; MCH 30.4 pg (25.0-35.0); MCHC 34.5 g/dL (31.0-37.0); MCV 88.1 fL (80.0-100.0); Mean Platelet Volume 8.3; Monocytes # (A) 0.4 k/uL (0-1.0); Monocytes % (A) 5 %; Neutrophils # (A) 6.2 k/uL (1.3-7.7); Neutrophils % (A) 78 %; Platelet Count 184 k/uL (150-450); RBC 5.11 m/uL (3.80-5.40); RDW 12.6 % (11.5-15.5)
[2022-06-11 13:33] LABS: Partial Thromboplastin Time 23.7 sec (22.0-30.0); Prothrombin Time 10.8 sec (9.0-12.0)
[2022-06-11 13:44] LABS: ALT 18 U/L (4-34); African American GFR (CKD) >90 (>60 ml/min/1.73 sqM); Albumin 4.2 g/dL (3.5-5.0); Anion Gap 13 mmol/L; Blood Urea Nitrogen 19 mg/dL (7-17); Calcium 8.9 mg/dL (8.4-10.2); Carbon Dioxide 22 mmol/L (22-30); Chloride 107 mmol/L (98-107); Glucose 80 mg/dL (74-99); Non-African American GFR(CKD) 85 (>60 ml/min/1.73 sqM); Sodium 142 mmol/L (137-145)
[2022-06-11 14:14] LABS: Phosphorus 2.8 mg/dL (2.5-4.5); Potassium 4.1 mmol/L (3.5-5.1)
[2022-06-11 14:15] LABS: AST 31 U/L (14-36); Alkaline Phosphatase 87 U/L (38-126)
--- NOTE | 2022-06-11 14:37 | CT ---
EXAMINATION TYPE: CT abdomen pelvis wo con CT DLP: 518.3 mGycm, Automated exposure control for dose reduction was used. DATE OF EXAM: 06/11/2022 2:22 PM COMPARISON: CT abdomen pelvis most recent from 11/13/2015. CLINICAL INDICATION:Female, 76 years old with history of pain; central abd pain TECHNIQUE: Axial CT of the abdomen and pelvis. Sagittal and coronal reformats were created on a [employer] workstation. Contrast used: None Oral contrast used: without Oral Contrast FINDINGS: LOWER CHEST: Unremarkable ABDOMEN LIVER: Unremarkable GALLBLADDER AND BILE DUCTS: The gallbladder surgically absent. PANCREAS: Unremarkable. SPLEEN: Unremarkable. ADRENAL GLANDS: Unremarkable. KIDNEYS AND URETERS: The [place] left kidney appears to be malpositioned inferiorly. It is more atroph ied compared to 2016. No evidence of hydronephrosis of the right [place] kidney or left pelvic kidney. Right renal calculi measuring up to 3 mm. No evidence of obstructive uropathy. Multiple left renal c alculi largest measuring up to 3 mm. PELVIS BLADDER: Bladder stone measuring up to 11 mm REPRODUCTIVE: Unremarkable. ABDOMEN & PELVIS STOMACH AND BOWEL: No evidence of bowel obstruction. Appendix is normal. Postsurgical changes to the bowel no evidence for bowel obstruction. PERITONEUM/RETROPERITONEUM: No evidence of pneumoperitoneum or free fluid. VASCULATURE: Mild atherosclerotic calcifications are present throughout the abdominal aorta and its b ranches. No evidence of aortic aneurysm. MUSCULOSKELETAL: No acute osseous abnormalities. Moderate disc degeneration changes are present throu ghout the thoracolumbar spine. Increased lordosis of the lumbar spine and kyphosis of the [place] spine . LYMPH NODES: No gross evidence for lymphadenopathy. SOFT TISSUE/ABDOMINAL WALL: Unremarkable IMPRESSION: 1. Postsurgical changes to the bowel without evidence for obstruction. No obvious acute abdominal pr ocess. 2. Bilateral nonobstructing renal calculi. 3. Malpositioning of the left [place] kidney is more atrophic than prior in 2016. 4. Bladder stone measuring up to 11 mm. New from 2016.
[2022-06-11 16:06] LABS: Appearance,Urine Cloudy (Clear); Bacteria,Urine Rare /hpf; Bilirubin,Urine Negative (Negative); Blood,Urine Trace (Negative); Color,Urine Yellow; Glucose,Urine (UA) Negative (Negative); Leukocyte Esterase,Urine Moderate (Negative); Mucus,Urine Few /hpf; Nitrite,Urine Negative (Negative); PH, Urine 5.5 (5.0-8.0); Protein,Urine Trace (Negative); RBC,Urine 6 /hpf (0-5); Specific Gravity,Urine 1.016 (1.001-1.035); Squamous Epithelial Cell,Urine 8 /hpf (0-4); Urobilinogen,Urine <2.0 mg/dL (<2.0); WBC,Urine 2 /hpf (0-5)
[2022-06-11 16:07] LABS: Ketones,Urine 3+ (Negative)
[2022-06-11] MEDS ORDERED: ONDANSETRON 4 MG ODT STARTER PACK 2 TAB BTL PO STA (16:49)
[2022-06-11] MEDS ORDERED: traMADol 50 MG STARTER PACK 3 TAB BTL PO STA (16:49)
[2022-06-11] MEDS ORDERED: SODIUM CHLORIDE 0.9% 1,000 ML IV STA (16:49)
[2022-06-11] MEDS ORDERED: ONDANSETRON 4 MG/2 ML VIAL IVP PRN (17:57)
[2022-06-11] MEDS ORDERED: LACTATED RINGERS 1,000 ML IV ONE (17:57)
[2022-06-11] MEDS ORDERED: LOPERAMIDE 2 MG CAP PO PRN (17:57)
--- NOTE | 2022-06-11 17:59 | P.HPIM ---
History of Present Illness H&P Date: 06/11/22 Chief Complaint: nausea, vomiting, diarrhea 76 showed woman with medical history of MS, hypertension, hyperlipidemia, peripheral neuropathy presented for nausea, vomiting, diarrhea. Patient says her symptoms started on Wednesday, she was unable to keep anything down. She has been throwing up even simple things such as water. She also had several bouts of diarrhea. She has abdominal pain associated with this which feels cramping in nature as diffuse across her abdomen. She reports some subjective fevers, chills, recent sick contact and her boyfriend who is also here for viral syndrome. She denies chest pain, palpitations, significant, presyncope, cough, dyspnea, constipation, dysuria, dyschezia, numbness/weakness of extremities beyond her baseline. In the emergency room, patient was afebrile, 173/90, heart rate 89, 100% on room air. CBC was unremarkable. Chemistries were unremarkable. Liver function tests were significant for total bilirubin of 2.0, otherwise unremarkable. Troponins less than 0.012. BNP was 58. Coags were unremarkable. UA was contam inated with [address] of the abdomen/pelvis showed postsurgical changes to the bowel with no evidence for obstruction, no acute abdominal process, bilateral nonobstructing renal calculi. EKG shows normal sinus rhythm with first-degree AV block, normal axis, no evidence of ischemia. Case was discussed with the emergency room bladder decision was made to with the patient observation for nausea, vomiting. All Systems reviewed and pertinent positives and negatives noted in HPI, all other symptoms are negative Gen: in no apparent distress, resting comfortably in bed Eyes: PERRL, no scleral injection or icterus HENT: normocephalic, atraumatic, good hearing acuity, moist mucous membranes Neck: no tracheal deviation, full range of motion Resp: good air exchange, breathing comfortably with no accessory muscle use, no tactile fremitus CVS: good distal perfusion x 4, no pitting edema GI: soft, NTTP, ND, no hepatosplenomegaly : no suprapubic tenderness, no CVAT, jarrell catheter not present MSK: no clubbing, no cyanosis, no noted contractures of extremities Skin: no noted rashes, petechiae; temperature of skin is appropriate Neuro: moving all extremities without signs of weakness, CN II-XII intact Psych: cooperative, euthymic mood, insight and judgment intact Labs and imaging as above Assessment: Viral gastroenteritis Dehydration Multiple sclerosis Hypertension Hyperlipidemia Peripheral neuropathy Plan: Vital signs reviewed and noted in the HPI Lab work reviewed and noted in the HPI EKG is personally interpreted and noted in the HPI CT of the abdomen/pelvis was reviewed and noted in HPI Case was discussed with the Emergency Room provider and decision was made to admit the patient for nausea, vomiting, diarrhea Start Patient on IV fluids with lactated Ringer's at 75 mL/h Zofran 4 mg every 4 hours IV when necessary for nausea Imodium 2 mg by mouth every 2 hours when necessary for diarrhea Resume patient's home amlodipine 2.5 mg daily, pregabalin 300 mg twice a day, rosuvastatin 5 mg daily Patient is full code Past Medical History Past Medical History: Deep Vein Thrombosis (DVT), Hyperlipidemia, Hypertension, Pneumonia, Pulmonary Embolus (PE) Additional Past Medical History / Comment(s): ruptured bowel 06/2015. LEFT LEG DVT. RLS, urinary leakage. MS History of Any Multi-Drug Resistant Organisms: None Reported Past Surgical History: Bowel Resection, Cholecystectomy, Hernia Repair, Joint Replacement, Orthopedic Surgery Additional Past Surgical History / Comment(s): L KNEE replacement. RIGHT SH OULDER SURGERY, rt knee meniscus, colostomy reversal, ptosis tigist, cataract tigist with lens implants Past Anesthesia/Blood Transfusion Reactions: No Reported Reaction Past Psychological History: No Psychological Hx Reported Smoking Status: Never smoker - Past Family History Father Family Medical History: Cancer Mother Family Medical History: Cancer Medications and Allergies Home Medications Medication Instructions Recorded Confirmed Type Eletriptan [Relpax] 40 mg PO DAILY PRN 11/07/15 06/11/22 History Potassium Chloride ER [K-Dur 10] 10 meq PO DAILY 06/11/22 06/11/22 History Pregabalin [Lyrica] 300 mg PO BID 06/11/22 06/11/22 History Rosuvastatin Calcium 5 mg PO DAILY 06/11/22 06/11/22 History amLODIPine [Norvasc] 2.5 mg PO DAILY 06/11/22 06/11/22 History Allergies Allergy/AdvReac Type Severity Reaction Status Date / Time iodine Allergy Rash/Hives Verified 06/11/22 15:00 tropicamide [From Mydriacyl] Allergy Itching Verified 06/11/22 15:00 carbamazepine [From Tegretol] AdvReac Nausea Verified 06/11/22 15:00 ciprofloxacin [From Cipro] AdvReac lt leg pain Verified 06/11/22 15:00 fosinopril AdvReac Cough Verified 06/11/22 15:00 lisinopril AdvReac Cough Verified 06/11/22 15:00 topiramate [From Topamax] AdvReac Nausea & Verified 06/11/22 15:00 Vomiting & Diarrhea Physical Exam Osteopathic Statement: *. No significant issues noted on an osteopathic structural exam other than those noted in the History and Physical/Consult. Vitals: Vital Signs Temp Pulse Resp BP Pulse Ox 06/11/22 15:00 66 19 163/71 96 06/11/22 13:10 84 18 152/80 98 06/11/22 12:04 98.9 F 89 18 173/90 100 Intake and Output 06/11/22 06/11/22 06/11/22 06:59 14:59 22:59 Other: Weight 61.235 kg Results CBC & Chem 7: 06/11/22 13:06 06/11/22 13:06 Labs: Abnormal Lab Results - Last 24 Hours (Table) 06/11/22 06/11/22 Range/Units 13:06 15:18 BUN 19 H (7-17) mg/dL Total Bilirubin 2.0 H (0.2-1.3) mg/dL Urine Appearance Cloudy H (Clear) Urine Protein Trace H (Negative) Urine Ketones 3+ H (Negative) Urine Blood Trace H (Negative) Ur Leukocyte Esterase Moderate H (Negative) Urine RBC 6 H (0-5) /hpf Ur Squamous Epith Cells 8 H (0-4) /hpf Urine Bacteria Rare H (None) /hpf Urine Mucus Few H (None) /hpf
[2022-06-11] MEDS ORDERED: MORPHINE SULFATE 4 MG/ML SYRINGE IV PRN (20:23)
[2022-06-11] MEDS ORDERED: NALOXONE 0.4 MG/ML 1 ML VIAL IV PRN (20:23)
[2022-06-11] MEDS: PREGABALIN 100 MG CAP PO SCH (22:22)
[2022-06-11] MEDS: SODIUM CHLORIDE 0.9% 1,000 ML IV SCH (22:22)
[2022-06-12] MEDS: SODIUM CHLORIDE 0.9% 1,000 ML IV SCH ×2 (04:16→12:08)
[2022-06-12 06:38] LABS: African American GFR (CKD) >90 (>60 ml/min/1.73 sqM); Anion Gap 8 mmol/L; Blood Urea Nitrogen 18 mg/dL (7-17); Calcium 7.8 mg/dL (8.4-10.2); Carbon Dioxide 19 mmol/L (22-30); Chloride 114 mmol/L (98-107); Glucose 55 mg/dL (74-99); Non-African American GFR(CKD) 84 (>60 ml/min/1.73 sqM); Potassium 3.3 mmol/L (3.5-5.1); Sodium 141 mmol/L (137-145)
[2022-06-12 06:52] LABS: Basophils % (A) 0 %; Eosinophils # (A) 0.1 k/uL (0-0.7); Eosinophils % (A) 2 %; HCT 36.2 % (34.0-46.0); Lymphocytes # (A) 1.6 k/uL (1.0-4.8); Lymphocytes % (A) 29 %; MCH 30.4 pg (25.0-35.0); MCHC 33.6 g/dL (31.0-37.0); MCV 90.4 fL (80.0-100.0); Mean Platelet Volume 8.9; Monocytes # (A) 0.4 k/uL (0-1.0); Monocytes % (A) 7 %; Neutrophils # (A) 3.3 k/uL (1.3-7.7); Neutrophils % (A) 59 %; Platelet Count 147 k/uL (150-450); RBC 4.01 m/uL (3.80-5.40); WBC 5.6 k/uL (3.8-10.6)
[2022-06-12 06:55] LABS: HGB 12.2 gm/dL (11.4-16.0)
[2022-06-12 07:03] LABS: Glucose,Whole Blood 60 mg/dL (70-110)
[2022-06-12 07:40] LABS: Glucose,Whole Blood 91 mg/dL (70-110)
[2022-06-12] MEDS ORDERED: POTASSIUM CHLORIDE ER 20 MEQ TAB.ER PO STA (07:49)
[2022-06-12] MEDS ORDERED: ATORVASTATIN 10 MG TAB PO SCH (09:00)
[2022-06-12] MEDS ORDERED: amLODIPine 2.5 MG TAB PO SCH (09:00)
[2022-06-12] MEDS ORDERED: PANTOPRAZOLE 40 MG/10 ML VIAL IV SCH (09:00)
[2022-06-12 09:48] VITALS: BP 135/70; PULSE 79; RESP 16; TEMP 98.1
[2022-06-12] MEDS: PREGABALIN 100 MG CAP PO SCH (10:05)
--- NOTE | 2022-06-12 14:45 | P.DS ---
Providers Date of admission: 06/11/22 20:23 Expected date of discharge: 06/12/22 Attending physician: Mina Neal MD Primary care physician: Eliz Mckeon [facility] Course: Assessment: Viral gastroenteritis Dehydration Multiple sclerosis Hypertension Hyperlipidemia Peripheral neuropathy Hospital course: 76 showed woman with medical history of MS, hypertension, hyperlipidemia, peripheral neuropathy presented for nausea, vomiting, diarrhea. In the emergency room, patient was afebrile, 173/90, heart rate 89, 100% on room air. CBC was unremarkable. Chemistries were unremarkable. Liver function tests were significant for total bilirubin of 2.0, otherwise unremarkable. Troponins less than 0.012. BNP was 58. Coags were unremarkable. UA was contaminated with [address] of the abdomen/pelvis showed postsurgical changes to the bowel with no evidence for obstruction, no acute abdominal process, bilateral nonobstructing renal calculi. EKG shows normal sinus rhythm with first-degree AV block, normal axis, no evidence of ischemia. Case was discussed with the emergency room bladder decision was made to with the patient observation for nausea, vomiting. Patient was observed overnight and treated with IV fluids for rehydration. Patient was discharged home with instructions to continue supportive care, drink one Pedialyte daily. She was prescribed Imodium for diarrhea, Zofran for nausea. She should follow-up with her primary care physician. I spent 32 minutes coordinating this discharge on 06/12 Gen: awake, alert HEENT: normocephalic, atraumatic, good hearing acuity, moist mucous membranes Resp: good air exchange, breathing comfortably with no accessory muscle use CVS: good distal perfusion x 4, GI: soft, NTTP, ND : no SPT, no CVAT, jarrell catheter not present MSK: no pitting edema, no clubbing Neuro: non-focal, moving all extremities Psych: cooperative, euthymic mood Patient Condition at Discharge: Good Plan - Discharge Summary Discharge Rx Participant: No New Discharge Prescriptions: New Loperamide [Imodium] 2 mg PO Q2H PRN #15 cap PRN Reason: Diarrhea Ondansetron Odt [Zofran Odt] 4 mg PO Q6H PRN #30 tab PRN Reason: Nausea Continue Eletriptan [Relpax] 40 mg PO DAILY PRN PRN Reason: migraines amLODIPine [Norvasc] 2.5 mg PO DAILY Rosuvastatin Calcium 5 mg PO DAILY Pregabalin [Lyrica] 300 mg PO BID Potassium Chloride ER [K-Dur 10] 10 meq PO DAILY Discharge Medication List Eletriptan [Relpax] 40 mg PO DAILY PRN 11/07/15 [History] Potassium Chloride ER [K-Dur 10] 10 meq PO DAILY 06/11/22 [History] Pregabalin [Lyrica] 300 mg PO BID 06/11/22 [History] Rosuvastatin Calcium 5 mg PO DAILY 06/11/22 [History] amLODIPine [Norvasc] 2.5 mg PO DAILY 06/11/22 [History] Loperamide [Imodium] 2 mg PO Q2H PRN #15 cap 06/12/22 [Rx] Ondansetron Odt [Zofran Odt] 4 mg PO Q6H PRN #30 tab 06/12/22 [Rx] Follow up Appointment(s)/Referral(s): Eliz Mckeon MD [Primary Care Provider] - 1-2 days Patient Instructions/Handouts: Acute Nausea and Vomiting (ED), Acute Diarrhea (ED) Discharge Disposition: HOME SELF-CARE
== END 2022-06-12 12:20 | disposition home or self-care (01) ==
LOC: EC 12:02 → 6NMEDSUR 20:23
PROVIDERS: ADMIT Internal Medicine; ATTEND Internal Medicine
DX: A08.4 Viral intestinal infection, unspecified (principal); E86.0 Dehydration; G35 Multiple sclerosis; E78.5 Hyperlipidemia, unspecified; I10 Essential (primary) hypertension; I44.0 Atrioventricular block, first degree; G62.9 Polyneuropathy, unspecified; G25.81 Restless legs syndrome; R32 Unspecified urinary incontinence; Z79.899 Other long term (current) drug therapy; Z88.1 Allergy status to other antibiotic agents; Z88.8 Allergy status to other drugs, medicaments and biological substances; Z91.048 Other nonmedicinal substance allergy status; Z90.49 Acquired absence of other specified parts of digestive tract; Z86.711 Personal history of pulmonary embolism; Z86.718 Personal history of other venous thrombosis and embolism; Z96.652 Presence of left artificial knee joint; Z98.42 Cataract extraction status, left eye; Z98.41 Cataract extraction status, right eye; Z96.1 Presence of intraocular lens; Z87.19 Personal history of other diseases of the digestive system; Z80.9 Family history of malignant neoplasm, unspecified
CPT/HCPCS: 96375 ×2; 96361; 96374; 99285; 36415; 93005; 97161; 83880; 80053; 80048; 83605; 83735; 84100; 84484; 85025 ×2; 85610; 85730; 81001; 74176; G0378 ×2; J2270; J2405; C9113

== ENCOUNTER → 2022-07-09 | Outpatient (CLI) | payer MEDICARE, BC ==
--- NOTE | 2022-07-09 13:25 | US ---
EXAMINATION TYPE: US venous doppler duplex LE LT DATE OF EXAM: 07/09/2022 1:01 PM COMPARISON: NONE CLINICAL INDICATION: Female, 77 years old with history of R22.42SWELLING, MASS AND LUMP, M22.42CHONDR OMALACI; edema SIDE PERFORMED: Left TECHNIQUE: The lower extremity deep venous system is examined utilizing real time linear array sonog eugenio with graded compression, doppler sonography and color-flow sonography. VESSELS IMAGED: Common Femoral Vein Deep Femoral Vein Greater Saphenous Vein * Femoral Vein Popliteal Vein Small Saphenous Vein * Proximal Calf Veins (* superficial vessels) Left Leg: Negative for DVT IMPRESSION: Grayscale, color doppler, spectral doppler imaging performed of the deep veins of the lo wer extremities. There is normal flow, compressibility, vascular waveforms.
== END | disposition home or self-care (01) ==
LOC: RADUSWWP 12:34
PROVIDERS: ATTEND Family Medicine
DX: R22.42 Localized swelling, mass and lump, left lower limb (principal); M22.42 Chondromalacia patellae, left knee

== ENCOUNTER 2022-07-14 11:55 | Emergency (ER) | payer MEDICARE, BC ==
[2022-07-14] MEDS ORDERED: KETOROLAC 15 MG/ML 1 ML VIAL IM STA (12:34)
--- NOTE | 2022-07-14 12:39 | ED ---
General Adult HPI - General Chief complaint: Fall Stated complaint: fall Time Seen by Provider: 07/14/22 12:20 Source: patient, RN notes reviewed, old records reviewed Mode of arrival: ambulatory Limitations: no limitations - History of Present Illness Initial comments: This is a 77-year-old female who presents emergency Department complaining of right-sided rib pain and right wrist pain after having fallen when tripping over the threshold of her house to her porch. Patient states she landed on concrete. Patient states she did not hit her head or neck. Patient denies headache patient denies numbness weakness. Patient denies any neck pain. Patient denies any anterior chest pain but she does have some right-sided rib pain under the right breast and the right lateral aspect of her ribs. Patient also complained of a little bit of wrist pain has full range of motion. Patient denies any hip pain and knee pain or any other extremity pain. Patient denies any abdominal pain or back pain. - Related Data Home Medications Medication Instructions Recorded Confirmed Eletriptan [Relpax] 40 mg PO DAILY PRN 11/07/15 07/14/22 Potassium Chloride ER [K-Dur 10] 10 meq PO DAILY 06/11/22 07/14/22 Pregabalin [Lyrica] 300 mg PO BID 06/11/22 07/14/22 Rosuvastatin Calcium 5 mg PO DAILY 06/11/22 07/14/22 amLODIPine [Norvasc] 2.5 mg PO DAILY 07/14/22 07/14/22 Previous Rx's Medication Instructions Recorded Loperamide [Imodium] 2 mg PO Q2H PRN #15 cap 06/12/22 Ondansetron Odt [Zofran Odt] 4 mg PO Q6H PRN #30 tab 06/12/22 Allergies Allergy/AdvReac Type Severity Reaction Status Date / Time iodine Allergy Rash/Hives Verified 07/14/22 12:58 tropicamide [From Mydriacyl] Allergy Itching Verified 07/14/22 12:58 carbamazepine [From Tegretol] AdvReac Nausea Verified 07/14/22 12:58 ciprofloxacin [From Cipro] AdvReac lt leg pain Verified 07/14/22 12:58 fosinopril AdvReac Cough Verified 07/14/22 12:58 lisinopril AdvReac Cough Verified 07/14/22 12:58 topiramate [From Topamax] AdvReac Nausea & Verified 07/14/22 12:58 Vomiting & Diarrhea Review of Systems ROS Statement: Those systems with pertinent positive or pertinent negative responses have been documented in the HPI. ROS Other: All systems not noted in ROS Statement are negative. Past Medical History Past Medical History: Deep Vein Thrombosis (DVT), Hyperlipidemia, Hypertension, Pneumonia, Pulmonary Embolus (PE) Additional Past Medical History / Comment(s): ruptured bowel 06/2015. LEFT LEG DVT. RLS, urinary leakage. MS History of Any Multi-Drug Resistant Organisms: None Reported Past Surgical History: Bowel Resection, Cholecystectomy, Hernia Repair, Joint Re placement, Orthopedic Surgery Additional Past Surgical History / Comment(s): L KNEE replacement. RIGHT SHOULDER SURGERY, rt knee meniscus, colostomy reversal, ptosis tigist, cataract tigist with lens implants, rt knee Past Anesthesia/Blood Transfusion Reactions: No Reported Reaction Past Psychological History: No Psychological Hx Reported Smoking Status: Never smoker Past Alcohol Use History: None Reported Past Drug Use History: None Reported - Past Family History Father Family Medical History: Cancer Mother Family Medical History: Cancer General Exam - General Exam Comments Initial Comments: GENERAL: Patient is well-developed and well-nourished. Patient is nontoxic and well- hydrated and is in mild distress. ENT: Neck is soft and supple. No significant lymphadenopathy is noted. Oropharynx is clear. Moist mucous membranes. Neck has full range of motion without eliciting any pain. EYES: The sclera were anicteric and conjunctiva were pink and moist. Extraocular movements were intact and pupils were equal round and reactive to light. Eyelids were unremarkable. PULMONARY: Unlabored respirations. Good breath sounds bilaterally. No audible rales rhonchi or wheezing was noted. CARDIOVASCULAR: There is a regular rate and rhythm without any murmurs gallops or rubs. ABDOMEN: Soft and nontender with normal bowel sounds. SKIN: Skin is clear with no lesions or rashes and otherwise unremarkable. NEUROLOGIC: Patient is alert and oriented x3. Cranial nerves II through XII are grossly intact. Motor and sensory are also intact. Normal speech, volume and content. Symmetrical smile. MUSCULOSKELETAL: Normal extremities with adequate strength and full range of motion. Patient has some right lateral rib pain. Patient has some tenderness at the distal radius no actual wrist tenderness on palpation LYMPHATICS: No significant lymphadenopathy is noted PSYCHIATRIC: Normal psychiatric evaluation. Limitations: no limitations Course Vital Signs 07/14/22 12:10 Temperature 98.2 F Pulse Rate 72 Respiratory 20 Rate Blood Pressure 141/74 O2 Sat by Pulse 96 Oximetry Medical Decision Making - Medical Decision Making Was pt. sent in by a medical professional or institution (, ELI, COMPUTER REPAIR TECHNICIAN, urgent care, hospital, or jail...) When possible be specific @ -No Did you speak to anyone other than the patient for history (EMS, parent, family, police, friend...)? What history was obtained from this source @ -No Did you review nursing and triage notes (agree or disagree)? Why? @ -I reviewed and agree with nursing and triage notes Were old charts reviewed (outside hosp., previous admission, EMS record, old EKG, old radiological studies, urgent care reports/EKG's, jail records)? Report findings @ -No old charts were reviewed Differential Diagnosis (chest pain, altered mental status, abdominal pain women, abdominal pain men, vaginal bleeding, weakness, fever, dyspnea, syncope, headache, dizziness, GI bleed, back pain, seizure, CVA, palpatations, mental health, musculoskeletal)? @ -Differential Musculoskeletal Muscular strain, contusion, ligament sprain, fracture, arthritis, septic arthritis, bursitis, cellulitis, muscle spasm, nerve compression, DVT, arterial occlusion, herpes zoster, electrolyte abnormality, tumor.... This is not meant to be in all inclusive list EKG interpreted by me (3pts min.). @ -As above X-rays interpreted by me (1pt min.). @ -X-ray of the ribs and wrist show no acute abnormality CT interpreted by me (1pt min.). @ -None done U/S interpreted by me (1pt. min.). @ -None done What testing was considered but not performed or refused? (CT, X-rays, U/S, labs)? Why? @ -None What meds were considered but not given or refused? Why? @ -None Did you discuss the management of the patient with other professionals (professionals i.e. ELI Bashir, COMPUTER REPAIR TECHNICIAN, lab, RT, psych nurse, social research assistant, health services rn, teacher, booking police officer, pillowcase folder)? Give summary @ -No Was smoking cessation discussed for >3mins.? @ -No Was critical care preformed (if so, how long)? @ -No Were there social determinants of health that impacted care today? How? (Homelessness, low income, unemployed, alcoholism, drug addiction, transportation, low edu. Level, literacy, decrease access to med. care, usp, rehab)? @ -No Was there de-escalation of care discussed even if they declined (Discuss DNR or withdrawal of care, Hospice)? DNR status @ -No What co-morbidities impacted this encounter? (DM, HTN, Smoking, COPD, CAD, Cancer, CVA, ARF, Chemo, Hep., AIDS, mental health diagnosis, sleep apnea, morbid obesity)? @ -None Was patient admitted / discharged? Hospital course, mention meds given and route, prescriptions, significant lab abnormalities, going to OR and other pertinent info. @ -X-ray of the wrist and ribs show no acute abnormality Undiagnosed new problem with uncertain prognosis? @ -No Drug Therapy requiring intensive monitoring for toxicity (Heparin, Nitro, Insulin, Cardizem)? @ -No Were any procedures done? @ -No Diagnosis/symptom? @ -Contusion ribs Acute, or Chronic, or Acute on Chronic? @ -Acute Uncomplicated (without systemic symptoms) or Complicated (systemic symptoms)? @ -default Side effects of treatment? @ -No Exacerbation, Progression, or Severe Exacerbation? @ -No Poses a threat to life or bodily function? How? (Chest pain, [place], [place], pneumonia, PE, COPD, DKA, ARF, appy, cholecystitis, CVA, Diverticulitis, Homicidal, Suicidal, threat to staff... and all critical care pts) @ -No Disposition Clinical Impression: Contusion of ribs, Wrist strain Disposition: HOME SELF-CARE Instructions (If sedation given, give patient instructions): Fall Prevention for Older Adults (ED), Contusion in Adults (ED) Is patient prescribed a controlled substance at d/c from ED?: No Referrals: Eliz Mckeon MD [Primary Care Provider] - 1-2 days Time of Disposition: 14:29
--- NOTE | 2022-07-14 13:57 | XR ---
EXAMINATION TYPE: XR ribs RT w pa chest xray DATE OF EXAM: 07/14/2022 COMPARISON: Chest 06/23/2020 HISTORY: 77-year-old female fall last night onto her right side, right-sided pain, trauma TECHNIQUE: 5 views FINDINGS: Heart mildly enlarged. There is some patchy retrocardiac opacity. Strandy atelectasis of the right ba se. No pleural effusion or pneumothorax seen. Old healed right lateral fifth rib fracture deformity. No displaced right rib fracture seen. Cholecys tectomy clips. IMPRESSION: 1. Mild cardiomegaly. Strandy right basilar atelectasis. Some patchy retrocardiac atelectasis versus infiltrate. Correlate with patient's symptoms. 2. Old healed right lateral rib fracture deformity. No displaced right rib fracture otherwise seen.
--- NOTE | 2022-07-14 13:59 | XR ---
EXAMINATION TYPE: XR wrist complete RT DATE OF EXAM: 07/14/2022 COMPARISON: NONE HISTORY: 77-year-old female trauma, pain TECHNIQUE: 4 views FINDINGS: Prominent scapholunate interval measuring 2.1 mm. There is [id number] articulation between the calista te and capitate. Moderate osteoarthritic change of the first CMC and first MCP joint. There is some u lnar-sided soft tissue swelling. Mild negative ulnar variance noted. Otherwise, no acute fracture, marquis bluxation, dislocation seen. IMPRESSION: 1. Possible tear at the scapholunate ligament. Narrowing of the joint space between the lunate and ca pitate may reflect chronic tear and secondary midcarpal osteoarthrosis. Correlate for any chronic wri st instability versus acute ligamentous injury. 2. Some ulnar-sided soft tissue swelling. Moderate OA of the thumb.
[2022-07-14 14:50] VITALS: BP 135/72; PULSE 70; RESP 18; TEMP 97.9
== END 2022-07-14 14:53 | disposition home or self-care (01) ==
LOC: EC 11:55
DX: S66.911A Strain of unspecified muscle, fascia and tendon at wrist and hand level, right hand, initial encounter (principal); S20.20XA Contusion of thorax, unspecified, initial encounter; I10 Essential (primary) hypertension; E78.5 Hyperlipidemia, unspecified; Z79.899 Other long term (current) drug therapy; Z86.711 Personal history of pulmonary embolism; Z86.718 Personal history of other venous thrombosis and embolism; Z88.1 Allergy status to other antibiotic agents; Z88.8 Allergy status to other drugs, medicaments and biological substances; Z90.49 Acquired absence of other specified parts of digestive tract; W01.0XXA Fall on same level from slipping, tripping and stumbling without subsequent striking against object, initial encounter
CPT/HCPCS: 71101; 73110; 99284; 96372; J1885

== ENCOUNTER 2022-10-05 10:36 | Emergency (ER) | payer MEDICARE, BC ==
[2022-10-05] MEDS ORDERED: SODIUM CHLORIDE 0.9% 1,000 ML IV STA (10:46)
[2022-10-05] MEDS ORDERED: ONDANSETRON 4 MG/2 ML VIAL IVP STA (10:47)
--- NOTE | 2022-10-05 10:50 | ED ---
Weakness HPI - General Chief complaint: Weakness Stated complaint: Weakness Time Seen by Provider: 10/05/22 10:37 Source: patient, EMS, RN notes reviewed Mode of arrival: EMS Limitations: no limitations - History of Present Illness Initial comments: 77-year-old female presents emergency Department with chief complaint of denies weakness, nausea vomiting diarrhea. Patient's symptoms started yesterday worse this morning. Patient states complaint is dry heaving denies any localized abdominal pain denies chest pain shortness breath fevers chills no sick contacts she believes she may have UTI. - Related Data Home Medications Medication Instructions Recorded Confirmed Eletriptan [Relpax] 40 mg PO DAILY PRN 11/07/15 07/14/22 Potassium Chloride ER [K-Dur 10] 10 meq PO DAILY 06/11/22 07/14/22 Pregabalin [Lyrica] 300 mg PO BID 06/11/22 07/14/22 Rosuvastatin Calcium 5 mg PO DAILY 06/11/22 07/14/22 amLODIPine [Norvasc] 2.5 mg PO DAILY 07/14/22 07/14/22 Previous Rx's Medication Instructions Recorded Loperamide [Imodium] 2 mg PO Q2H PRN #15 cap 06/12/22 Ondansetron Odt [Zofran Odt] 4 mg PO Q6H PRN #30 tab 06/12/22 Nitrofurantoin Monohyd/M-Cryst 100 mg PO Q12HR #14 cap 10/05/22 [Macrobid] Ondansetron Odt [Zofran Odt] 4 mg PO Q8HR PRN #10 tab 10/05/22 Allergies Allergy/AdvReac Type Severity Reaction Status Date / Time iodine Allergy Rash/Hives Verified 10/05/22 10:44 tropicamide [From Mydriacyl] Allergy Itching Verified 10/05/22 10:44 carbamazepine [From Tegretol] AdvReac Nausea Verified 10/05/22 10:44 ciprofloxacin [From Cipro] AdvReac lt leg pain Verified 10/05/22 10:44 fosinopril AdvReac Cough Verified 10/05/22 10:44 lisinopril AdvReac Cough Verified 10/05/22 10:44 topiramate [From Topamax] AdvReac Nausea & Verified 10/05/22 10:44 Vomiting & Diarrhea Review of Systems ROS Statement: Those systems with pertinent positive or pertinent negative responses have been documented in the HPI. ROS Other: All systems not noted in ROS Statement are negative. Past Medical History Past Medical History: Deep Vein Thrombosis (DVT), Hyperlipidemia, Hypertension, Pneumonia, Pulmonary Embolus (PE) Additional Past Medical History / Comment(s): ruptured bowel 06/2015. LEFT LEG DVT. RLS, urinary leakage. MS. UTI's History of Any Multi-Drug Resistant Organisms: None Reported Past Surgical History: Bowel Resection, Cholecystectomy, Hernia Repair, Joint Replacement, Orthopedic Surgery Additional Past Surgical History / Comment(s): L KNEE replacement. RIGHT SHOULDER SURGERY, rt knee meniscus, colostomy reversal, ptosis tigist, cataract tigist with lens implants, rt knee Past Anesthesia/Blood Transfusion Reactions: No Reported Reaction Past Psychological History: No Psychological Hx Reported Smoking Status: Never smoker Past Alcohol Use History: Rare Past Drug Use History: Marijuana - Past Family History Father Family Medical History: Cancer Mother Family Medical History: Cancer General Exam Limitations: no limitations General appearance: alert, in no apparent distress Head exam: Present: atraumatic, normocephalic, normal inspection Neck exam: Present: normal inspection. Absent: tenderness, meningismus, lymphadenopathy Respiratory exam: Present: normal lung sounds bilaterally. Absent: respiratory distress, wheezes, rales, rhonchi, stridor Cardiovascular Exam: Present: regular rate, normal rhythm, normal heart sounds. Absent: systolic murmur, diastolic murmur, rubs, gallop, clicks GI/Abdominal exam: Present: soft, normal bowel sounds. Absent: distended, tenderness, guarding, rebound, rigid Back exam: Absent: CVA tenderness (R), CVA tenderness (L) Neurological exam: Present: alert Skin exam: Present: warm, dry, intact, normal color. Absent: rash Course Vital Signs 10/05/22 10/05/22 10/05/22 10:39 12:14 14:01 Temperature 98.3 F 98.2 F Pulse Rate 96 98 96 Respiratory 18 17 17 Rate Blood Pressure 146/79 147/78 135/57 O2 Sat by Pulse 96 98 99 Oximetry EKG Findings - EKG Comments: EKG Findings:: EKG performed at 11:35 rate of 96 AL 192 QRS 100 QT/QTC 365/419 sinus rhythm - EKG Results: EKG: interpreted by TELLO Medical Decision Making - Lab Data Result diagrams: 10/05/22 10:54 10/05/22 10:54 Lab Results 10/05/22 10/05/22 10/05/22 Range/Units 10:54 10:54 10:54 WBC 6.8 (3.8-10.6) k/uL RBC 4.96 (3.80-5.40) m/uL Hgb 14.7 (11.4-16.0) gm/dL Hct 43.3 (34.0-46.0) % MCV 87.4 (80.0-100.0) fL MCH 29.6 (25.0-35.0) pg MCHC 33.9 (31.0-37.0) g/dL RDW 12.6 (11.5-15.5) % Plt Count 175 (150-450) k/uL MPV 8.5 Neutrophils % 85 % Lymphocytes % 9 % Monocytes % 5 % Eosinophils % 0 % Basophils % 0 % Neutrophils # 5.7 (1.3-7.7) k/uL Lymphocytes # 0.6 L (1.0-4.8) k/uL Monocytes # 0.3 (0-1.0) k/uL Eosinophils # 0.0 (0-0.7) k/uL Basophils # 0.0 (0-0.2) k/uL Sodium 140 (137-145) mmol/L Potassium 4.0 (3.5-5.1) mmol/L Chloride 105 (98-107) mmol/L Carbon Dioxide 21 L (22-30) mmol/L Anion Gap 14 mmol/L BUN 16 (7-17) mg/dL Creatinine 0.57 (0.52-1.04) mg/dL Est GFR (CKD-EPI)AfAm >90 (>60 ml/min/1.73 sqM) Est GFR (CKD-EPI)NonAf 90 (>60 ml/min/1.73 sqM) Glucose 106 H (74-99) mg/dL Calcium 9.1 (8.4-10.2) mg/dL Magnesium 1.9 (1.6-2.3) mg/dL Total Bilirubin 1.4 H (0.2-1.3) mg/dL AST 31 (14-36) U/L ALT 18 (4-34) U/L Alkaline Phosphatase 121 (38-126) U/L Total Protein 7.3 (6.3-8.2) g/dL Albumin 4.1 (3.5-5.0) g/dL Urine Color Yellow Urine Appearance Cloudy H (Clear) Urine pH 6.0 (5.0-8.0) Ur Specific Crete 1.015 (1.001-1.035) Urine Protein 1+ H (Negative) Urine Glucose (UA) Negative (Negative) Urine Ketones 3+ H (Negative) Urine Blood Trace H (Negative) Urine Nitrite Positive H (Negative) Urine Bilirubin Negative (Negative) Urine Urobilinogen <2.0 (<2.0) mg/dL Ur Leukocyte Esterase Large H (Negative) Urine RBC 4 (0-5) /hpf Urine WBC 78 H (0-5) /hpf Ur Squamous Epith Cells 2 (0-4) /hpf Urine Bacteria Many H (None) /hpf Urine Mucus Rare H (None) /hpf Disposition Clinical Impression: UTI (urinary tract infection), Nausea & vomiting Disposition: HOME SELF-CARE Condition: Stable Instructions (If sedation given, give patient instructions): Urinary Tract Infection in Women (ED) Additional Instructions: Please return to the Emergency Department if symptoms worsen or any other concerns. Prescriptions: Nitrofurantoin Monohyd/M-Cryst [Macrobid] 100 mg PO Q12HR #14 cap Ondansetron Odt [Zofran Odt] 4 mg PO Q8HR PRN #10 tab PRN Reason: Nausea Is patient prescribed a controlled substance at d/c from ED?: No Referrals: Eliz Mckeon MD [Primary Care Provider] - 1-2 days Time of Disposition: 13:07
[2022-10-05 11:57] LABS: Basophils % (A) 0 %; Eosinophils % (A) 0 %; HCT 43.3 % (34.0-46.0); HGB 14.7 gm/dL (11.4-16.0); Lymphocytes # (A) 0.6 k/uL (1.0-4.8); Lymphocytes % (A) 9 %; MCH 29.6 pg (25.0-35.0); MCHC 33.9 g/dL (31.0-37.0); MCV 87.4 fL (80.0-100.0); Mean Platelet Volume 8.5; Monocytes # (A) 0.3 k/uL (0-1.0); Monocytes % (A) 5 %; Neutrophils # (A) 5.7 k/uL (1.3-7.7); Neutrophils % (A) 85 %; Platelet Count 175 k/uL (150-450); RBC 4.96 m/uL (3.80-5.40); RDW 12.6 % (11.5-15.5); WBC 6.8 k/uL (3.8-10.6)
[2022-10-05 12:10] LABS: ALT 18 U/L (4-34); AST 31 U/L (14-36); African American GFR (CKD) >90 (>60 ml/min/1.73 sqM); Albumin 4.1 g/dL (3.5-5.0); Alkaline Phosphatase 121 U/L (38-126); Anion Gap 14 mmol/L; Blood Urea Nitrogen 16 mg/dL (7-17); Calcium 9.1 mg/dL (8.4-10.2); Carbon Dioxide 21 mmol/L (22-30); Chloride 105 mmol/L (98-107); Glucose 106 mg/dL (74-99); Magnesium 1.9 mg/dL (1.6-2.3); Non-African American GFR(CKD) 90 (>60 ml/min/1.73 sqM); Sodium 140 mmol/L (137-145); Total Bilirubin 1.4 mg/dL (0.2-1.3); Total Protein 7.3 g/dL (6.3-8.2)
[2022-10-05 12:15] VITALS: RESP 17
[2022-10-05 12:19] LABS: Appearance,Urine Cloudy (Clear); Bacteria,Urine Many /hpf; Bilirubin,Urine Negative (Negative); Blood,Urine Trace (Negative); Color,Urine Yellow; Glucose,Urine (UA) Negative (Negative); Ketones,Urine 3+ (Negative); Leukocyte Esterase,Urine Large (Negative); Mucus,Urine Rare /hpf; Nitrite,Urine Positive (Negative); Protein,Urine 1+ (Negative); RBC,Urine 4 /hpf (0-5); Specific Gravity,Urine 1.015 (1.001-1.035); Squamous Epithelial Cell,Urine 2 /hpf (0-4); Urobilinogen,Urine <2.0 mg/dL (<2.0); WBC,Urine 78 /hpf (0-5)
[2022-10-05] MEDS ORDERED: ONDANSETRON 4 MG TAB PO STA (13:40)
[2022-10-05 14:02] VITALS: BP 135/57; PULSE 96; TEMP 98.2
== END 2022-10-05 14:02 | disposition home or self-care (01) ==
LOC: EC 10:36
DX: N39.0 Urinary tract infection, site not specified (principal); R11.2 Nausea with vomiting, unspecified; E78.5 Hyperlipidemia, unspecified; I10 Essential (primary) hypertension; F12.90 Cannabis use, unspecified, uncomplicated; Z86.711 Personal history of pulmonary embolism; Z79.01 Long term (current) use of anticoagulants; Z79.899 Other long term (current) drug therapy; Z91.041 Radiographic dye allergy status; Z88.6 Allergy status to analgesic agent; Z88.1 Allergy status to other antibiotic agents; Z88.8 Allergy status to other drugs, medicaments and biological substances; Z90.49 Acquired absence of other specified parts of digestive tract
CPT/HCPCS: 36415; 93005; 80053; 83735; 85025; 81001; 87086; 87077; 87186; 99285; 96374; 96361; J2405

== ENCOUNTER → 2023-04-19 | Outpatient (CLI) | payer MEDICARE, BC ==
--- NOTE | 2023-04-19 19:12 | MR ---
EXAMINATION TYPE: MR brain wo con DATE OF EXAM: 04/19/2023 COMPARISON: 06/24/2020 HISTORY: 77-year-old female G35, MS TECHNIQUE: Multiplanar, multisequence images of the brain and brainstem is performed without IV contr ast. Diffusion-weighted imaging is performed. Additional demyelinating disease protocol with the kyle tion of a sagittal FLAIR sequence.. FINDINGS: T2 Lesions Present : Yes Approximate Number of Lesions: 10 within the right cerebral hemisphere and 10-15 in the left cerebral hemisphere. Locations Identified : Subcortical, deep white matter, and periventricular. Size of Reference Lesion(s): 1. Anterior right frontal subcortical measuring 1.1 cm, axial image 19. 2. Left periatrial white matter measuring 1.2 cm, axial image 15. Enhancing Lesion(s) Present: Not applicable T1 Hypointense Lesion(s) Present: Yes Change from Prior: Overall unchanged Diffusion weighted images demonstrate no evidence of a recent infarct or other diffusion abnormality. There is no worrisome extra-axial fluid collection. Moderate generalized cerebral atrophy. Mild claudia triculomegaly likely due to central cerebral atrophy. Midline structures demonstrate normal morphology. The craniocervical junction appears within normal limits. Post contrast images demonstrate no abnormal enhancement. The dural venous sinuses appear pa tent. Mild mucosal thickening ethmoid air cells. Mild mucosal thickening left sphenoid sinus. Partial opacification left mastoid air cells. Globes are intact. IMPRESSION: 1. Stable moderate burden of T2 bright white matter change in both cerebral hemispheres compatible wi th patient's MS. 2. No acute intracranial abnormality seen. 3. Moderate generalized cerebral atrophy. 4. Mild chronic ethmoid sinus disease. Opacification of the left mastoid air cells. Correlate for any mastoid pain to exclude mastoiditis.
== END | disposition home or self-care (01) ==
LOC: RADMRIMAIN 11:41
PROVIDERS: ATTEND Psychiatry & Neurology Neurology
DX: J32.2 Chronic ethmoidal sinusitis (principal); G35 Multiple sclerosis; G31.89 Other specified degenerative diseases of nervous system
CPT/HCPCS: 70551

== ENCOUNTER → 2023-04-23 | Outpatient (CLI) | payer MEDICARE, BC ==
[2023-04-23] MEDS: DENOSUMAB 60 MG/ML 1 ML SYRINGE SQ NR (14:20)
[2023-04-23 14:55] VITALS: BP 147/77; PULSE 76; RESP 16; TEMP 97.7
== END ==
LOC: PROCWHC3 13:42
PROVIDERS: ATTEND Nurse Practitioner Family
DX: M81.0 Age-related osteoporosis without current pathological fracture (principal)
CPT/HCPCS: 96372; J0897

== ENCOUNTER → 2023-04-23 | Outpatient (CLI) | payer MEDICARE, BC ==
--- NOTE | 2023-04-24 17:17 | MR ---
EXAMINATION TYPE: MR cspine/tspine wo con DATE OF EXAM: 04/23/2023 10:18 AM CLINICAL INDICATION:Female, 77 years old with history of G35 Multiple Sclerosis; PHH, MS COMPARISON: 04/15/2021 06/11/2022, 06/24/2020. TECHNIQUE: Multi planar, multi sequence imaging was performed utilizing: T1-weighted, T2-weighted, a nd turbo inversion recovery imaging of the cervical and thoracic spine. MR contrast: IV Contrast: cc , None. FINDINGS: CERVICAL: Alignment: The cervical vertebral bodies have preserved heights. Alignment is within normal limits gi claudia patient positioning. Bones: Mild multilevel degeneration changes throughout the spine with osteophyte formation, disc spac e narrowing and facet joint arthropathy. The cervical spine is also uncovertebral joint arthropathy. No no suspicious abnormal bone marrow edema on inversion recovery sequences. There is wedging of the T12 vertebrae with increased kyphosis at this T11-T12 level. Cord: There is some increased cord signal at the level of C2-C3 posteriorly in the dorsal columns ser ies 801 image 46. This is similar to prior on 06/24/2020. The remainder of the scored signal is within normal limits. Discs: Multilevel disc desiccation is present. C2-C3: No significant disc pathology. The spinal canal is patent. No neural foraminal stenosis. C3-C4: No significant disc pathology. The spinal canal is patent. No neural foraminal stenosis. C4-C5: A disc osteophyte complex is present which minimally narrows the ventral subarachnoid space. Bilateral facet and uncovertebral joint arthropathy are present with mild to moderate bilateral neur al foraminal stenosis. C5-C6: A disc osteophyte complex is present which minimally narrows the ventral subarachnoid space. Bilateral facet and uncovertebral joint arthropathy are present with mild bilateral neural foraminal stenosis. C6-C7: No significant disc pathology. The spinal canal is patent. No neural foraminal stenosis. C7-T1: No significant disc pathology. The spinal canal is patent. No neural foraminal stenosis. THORACIC: No evidence significant spinal canal or neural foraminal stenosis. Spinal cord is within no rmal limits. Scattered degeneration changes present with facet joint arthropathy throughout the spine . Increased kyphosis at T11-T12. Other: Right renal high T2 signal cyst. IMPRESSION: 1. Stable appearing abnormal cord signal in the dorsal columns at the level of C2-C3 compared to mack or's. No abnormal cord signal centrally visualized right thoracic spine. 2. No definitive evidence of disc herniation or significant spinal canal stenosis. 3. Moderate disc degeneration with associated osteoarthritic changes. No evidence for significant sp inal canal stenosis in the thoracic or cervical spine.
== END | disposition home or self-care (01) ==
LOC: RADMRIMAIN 08:39
PROVIDERS: ATTEND Psychiatry & Neurology Neurology
DX: M47.813 Spondylosis without myelopathy or radiculopathy, cervicothoracic region (principal); G35 Multiple sclerosis; M51.34 Other intervertebral disc degeneration, thoracic region; M50.30 Other cervical disc degeneration, unspecified cervical region
CPT/HCPCS: 72141; 72146

== ENCOUNTER → 2023-05-05 | Outpatient (CLI) | payer MEDICARE, BC ==
--- NOTE | 2023-05-06 22:49 | MM ---
Reason for Exam: Screening (asymptomatic). Last mammogram was performed 1 year(s) and 3 month(s) ago. Patient History: Menarche at age 16. First Full-Term at age 25. Postmenopausal. Estrogen for 1 month. Patient used Hormonal Contraceptives for 3 years. Paternal cousin had breast cancer. Risk Values: [place] 5 year model risk: 1.8%. NCI Lifetime model risk: 3.4%. Prior Study Comparison: 07/08/2016 Bilateral Screening Mammogram, [facility]. 08/26/2017 Bilateral Screening Mammogram, [facility]. 08/29/2018 Bilateral Screening Mammogram, [facility]. 10/11/2019 Bilateral Screening Mammogram, [facility]. 10/28/2020 Bilateral Screening Mammogram, [facility]. 02/04/2022 Bilateral MG 3D screening mammo w/cad, [facility]. Tissue Density: The breasts are heterogeneously dense, which may obscure small masses. Findings: Analyzed By CAD. The pattern is symmetrical. Exam is stable from comparison. Scattered benign punctate calcifications are present bilaterally. No suspicious groups of microcalcifications, spiculated or lobular masses, architectural distortion or other secondary signs of malignancy are mammographically apparent. Overall Assessment: Benign, BI-RAD 2 Management: Screening Mammogram of both breasts in 1 year. A negative mammogram report should not preclude additional follow up of suspicious palpable abnormalities. Patient should continue monthly self breast exam. A clinical breast exam by your physician is recommended on an annual basis and results should be correlated with mammographic findings. Electronically signed and approved by: Reese Baumann D.O. Radiologis
== END | disposition home or self-care (01) ==
LOC: RADMAMWWP 12:26
PROVIDERS: ATTEND Family Medicine
DX: Z12.31 Encounter for screening mammogram for malignant neoplasm of breast (principal); Z78.0 Asymptomatic menopausal state; Z80.3 Family history of malignant neoplasm of breast
CPT/HCPCS: 77063; 77067

== ENCOUNTER → 2023-06-01 | Outpatient (CLI) | payer MEDICARE, BC ==
--- NOTE | 2023-06-03 09:12 | US ---
EXAMINATION TYPE: US kidneys/renal and bladder DATE OF EXAM: 06/01/2023 COMPARISON: 03/10/2021 CLINICAL INDICATION: Female, 77 years old with history of N18.31 CHRONIC KIDNEY DISEASE, STAGE 3A; Le ft pelvic kidney. EXAM MEASUREMENTS: Right Kidney: 9.9 x 5.1 x 4.1 cm Left Kidney: 7.0 x 3.4 x 3.6 cm - Left pelvic kidney Right Kidney: cystic lesions seen with largest = lateral inferior = 2.3 x 2.2 x 2.0 cm Left Kidney: Malposition of left kidney. Medial anechoic lesion, dilated renal pelvis vs mild hydron ephrosis. Superior lateral cystic appearing lesion = 0.9 x 1.0 x 0.7 cm Bladder: distended, anechoic Right jet seen There is no evidence for hydronephrosis at this point in time. No nephrolithiasis is seen. No agustín s are identified. The urinary bladder is anechoic. Right bladder jet seen. IMPRESSION: 1. Left pelvic kidney again demonstrated. 2. Redemonstration of bilateral renal cysts as described above. 3. No hydronephrosis or nephrolithiasis.
== END | disposition home or self-care (01) ==
LOC: RADUSWWP 13:28
PROVIDERS: ATTEND Internal Medicine
DX: N28.1 Cyst of kidney, acquired (principal); N18.31 Chronic kidney disease, stage 3a
CPT/HCPCS: 76770

== ENCOUNTER → 2023-11-01 | Outpatient (CLI) | payer MEDICARE, BC ==
[2023-11-01 14:16] VITALS: BP 141/83; PULSE 106; RESP 16; TEMP 98
[2023-11-01] MEDS: DENOSUMAB 60 MG/ML 1 ML SYRINGE SQ NR (14:17)
== END ==
LOC: PROCWHC3 13:58
PROVIDERS: ATTEND Nurse Practitioner Family
DX: M81.0 Age-related osteoporosis without current pathological fracture (principal)
CPT/HCPCS: 96372; J0897

== ENCOUNTER → 2023-12-03 | Outpatient (CLI) | payer MEDICARE, BC ==
--- NOTE | 2023-12-06 05:11 | MR ---
EXAMINATION TYPE: MR shoulder RT wo con DATE OF EXAM: 12/03/2023 COMPARISON: Outside right shoulder x-ray September 30, 2020 HISTORY: Rt shoulder pain x4 weeks, Hx Fall 6-7 weeks ago TECHNIQUE: Multiplanar, multisequence imaging of the right shoulder is performed without contrast. FINDINGS: Rotator Cuff: Intact infraspinatus tendon. Intact supraspinatus tendon with surrounding fluid. Increa sed signal with partial tearing of the distal supraspinatus tendon. Rotator cuff muscle bulk is maint ained. Acromioclavicular Joint: Moderate narrowing and mild spurring at the acromial navicular joint. Mild c apsular hypertrophy. Glenohumeral Joint: Small to moderate size joint effusion. No significant spurring. Labrum: Blunting superiorly with increased signal consistent with degenerative tear. Biceps Tendon: The long head of biceps is in normal location within bicipital groove. Bone marrow signal: No focal abnormal marrow signal is appreciated. Other: No additional significant abnormality is appreciated. IMPRESSION: 1. Degenerative superior labral tear. 2. Tendinosis/partial tearing of the supraspinatus tendon. 3. Mild to moderate degenerative changes are present as detailed above. [facility], , 12/06/2023 5:09 AM
== END | disposition home or self-care (01) ==
LOC: RADMRIMAIN 13:47
PROVIDERS: ATTEND Orthopaedic Surgery
DX: M75.111 Incomplete rotator cuff tear or rupture of right shoulder, not specified as traumatic (principal)

== ENCOUNTER → 2023-12-03 | Outpatient (CLI) | payer MEDICARE, BC ==
--- NOTE | 2023-12-03 13:55 | US ---
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 Left Kidney: Atrophic ill defined borders seen. Bladder: anechoic Bilateral Jets seen: yes There is no evidence for hydronephrosis at this point in time. Lobulated appearance to both kidneys. Loss of corticomedullary differentiation involving the left kidney with cortical thinning identified. The left kidney is within the pelvis again. Multiple simple cysts identified within the cortices of the right kidney. No nephrolithiasis is seen. No solid masses are identified. The urinary bladder i s anechoic. Bilateral ureteral jets identified. IMPRESSION: 1. No hydronephrosis. 2. Pelvic left kidney redemonstrated with findings suggesting chronic medical renal disease. 3. Multiple simple appearing right renal cysts redemonstrated. [facility], , 12/03/2023 1:53 PM
== END | disposition home or self-care (01) ==
LOC: RADUSWWP 13:20
PROVIDERS: ATTEND Internal Medicine
CPT/HCPCS: 76770

== ENCOUNTER 2024-05-10 10:21 | Outpatient (CLI) | payer MEDICARE, BC ==
[2024-05-10 10:37] VITALS: BP 122/71; PULSE 72; RESP 18; TEMP 98
[2024-05-10] MEDS: DENOSUMAB 60 MG/ML 1 ML SYRINGE SQ NR (10:37)
== END 2024-05-11 09:41 | disposition home or self-care (01) ==
LOC: PROCWHC3 10:21
PROVIDERS: ATTEND Family Medicine
DX: M81.0 Age-related osteoporosis without current pathological fracture (principal)
CPT/HCPCS: 96372; J0897

== ENCOUNTER 2024-08-19 13:32 | Emergency (ER) | payer MEDICARE, BC ==
--- NOTE | 2024-08-19 13:58 | ED ---
Female Urogenital HPI - General Chief complaint: Urogenital Stated complaint: UTI Time Seen by Provider: 08/19/24 13:57 Source: patient, family, EMS, RN notes reviewed, old records reviewed Mode of arrival: EMS Limitations: no limitations - History of Present Illness Initial comments: Patient presents today for concern of worsening 79-year-old female presented the ER for evaluation of urinary frequency, nausea and vomiting. Patient reports since she has been having increased urinary frequency along with nausea, with 1 episode of nonbilious vomiting and intermittent fevers. Fevers have been treated with Tylenol. Patient states that she frequently gets UTIs and believes she has 1. These are typical symptoms for UTIs. Patient was seen by PCP on for laboratory studies and reported these complaints. Patient was started on nitrofurantoin. She has had 3 doses currently. Patient also was endorsing a lower abdominal discomfort currently rating it a 5 out of 10. She denies any back or flank pain. She does admit to recent "loose stools" but states it was not diarrhea. Patient denies any hematemesis or coffee-ground emesis. She denies any chest pain, shortness of breath, dizziness, lightheadedness, cough, congestion, headache. Patient states she is unable to take aspirin or ibuprofen as she has 1 functioning kidney. Patient presents for concern of worsening infection. - Related Data Home Medications Medication Instructions Recorded Confirmed Acetaminophen-Codeine 300-30mg 1 tab PO Q6H PRN 04/23/23 05/10/24 [Tylenol w/codeine #3] Aspirin EC [Ecotrin Low Dose] 81 mg PO DAILY 04/23/23 05/10/24 Calcium Carbonate [Calcium] 600 mg PO DAILY 04/23/23 05/10/24 Potassium Chloride ER [K-Dur 10] 10 meq PO DAILY 04/23/23 05/10/24 Pregabalin [Lyrica] 150 mg PO BID 04/23/23 05/10/24 Turmeric/Turmeric Root Extract 1 each PO DAILY 04/23/23 05/10/24 [Turmeric 450-50 mg Capsule] Zinc Gluconate [Zinc] 50 mg PO DAILY 04/23/23 05/10/24 Methenamine Hippurate 1 gm PO BID 05/10/24 05/10/24 Promethazine [Phenergan] 0.5 tab PO QID 05/10/24 05/10/24 amLODIPine BESYLATE 1 tab PO DAILY 05/10/24 05/10/24 calcitrioL 0.25 mcg PO DAILY 05/10/24 05/10/24 Previous Rx's Medication Instructions Recorded Ondansetron Odt [Zofran Odt] 4 mg PO Q8HR PRN #10 tab 08/19/24 Allergies Allergy/AdvReac Type Severity Reaction Status Date / Time iodine Allergy Rash/Hives Verified 08/19/24 13:43 tropicamide [From Mydriacyl] Allergy Itching Verified 08/19/24 13:43 carbamazepine [From Tegretol] AdvReac Nausea Verified 08/19/24 13:43 ciprofloxacin [From Cipro] AdvReac lt leg pain Verified 08/19/24 13:43 fosinopril AdvReac Cough Verified 08/19/24 13:43 lisinopril AdvReac Cough Verified 08/19/24 13:43 topiramate [From Topamax] AdvReac Nausea & Verified 08/19/24 13:43 Vomiting & Diarrhea Review of Systems ROS Statement: Those systems with pertinent positive or pertinent negative responses have been documented in the HPI. ROS Other: All systems not noted in ROS Statement are negative. Past Medical History Past Medical History: Deep Vein Thrombosis (DVT), Hyperlipidemia, Hypertension, Pneumonia, Pulmonary Embolus (PE), Renal Disease Additional Past Medical History / Comment(s): ruptured bowel 06/2015. LEFT LEG DVT. RLS, urinary leakage. MS. UTI's. one functioning kidney, both are present History of Any Multi-Drug Resistant Organisms: None Reported Past Surgical History: Bowel Resection, Cholecystectomy, Hernia Repair, Joint Replacement, Orthopedic Surgery Additional Past Surgical History / Comment(s): L KNEE replacement. RIGHT SHOULDER SURGERY, rt knee meniscus, colostomy reversal, ptosis tigist, cataract tigist with lens implants, rt knee Past Anesthesia/Blood Transfusion Reactions: No Reported Reaction Past Psychological History: No Psychological Hx Reported Smoking Status: Never smoker Past Alcohol Use History: Occasional Past Drug Use History: None Reported - Past Family History Father Family Medical History: Cancer Mother Family Medical History: Cancer General Exam Limitations: no limitations General appearance: alert, in no apparent distress ENT exam: Present: normal exam, normal oropharynx, mucous membranes moist Respiratory exam: Present: normal lung sounds bilaterally. Absent: respiratory distress, wheezes, rales, rhonchi, stridor Cardiovascular Exam: Present: regular rate, normal rhythm, normal heart sounds. Absent: systolic murmur, diastolic murmur, rubs, gallop, clicks GI/Abdominal exam: Present: soft, tenderness (lower abdomen), normal bowel sound s Extremities exam: Present: normal inspection, full ROM, normal capillary refill. Absent: tenderness, pedal edema, joint swelling, calf tenderness Neurological exam: Present: alert, oriented X3, CN II-XII intact Skin exam: Present: warm, dry, intact, normal color. Absent: rash Course Vital Signs 08/19/24 08/19/24 08/19/24 13:34 16:03 17:11 Temperature 98.3 F 98.2 F Pulse Rate 93 94 82 Respiratory 20 18 18 Rate Blood Pressure 130/103 157/82 152/58 O2 Sat by Pulse 98 97 97 Oximetry Medical Decision Making - Medical Decision Making Was pt. sent in by a medical professional or institution (, PA, POCKET BUILDER, urgent care, hospital, or senior care...) When possible be specific @ -No Did you speak to anyone other than the patient for history (EMS, parent, family, police, friend...)? What history was obtained from this source @ -Patient's son, bedside, aiding in HPI past medical history. Did you review nursing and triage notes (agree or disagree)? Why? @ -I reviewed and agree with nursing and triage notes Were old charts reviewed (outside hosp., previous admission, EMS record, old EKG, old radiological studies, urgent care reports/EKG's, senior care records)? Report findings @ -No old charts were reviewed Differential Diagnosis (chest pain, altered mental status, abdominal pain women, abdominal pain men, vaginal bleeding, weakness, fever, dyspnea, syncope, headache, dizziness, GI bleed, back pain, seizure, CVA, palpatations, mental health, musculoskeletal)? @ -Differential Abdominal Pain Women:Appendicitis, Cholecystitis, diverticulosis, ischemic bowel, pancreatitis, hepatitis, UTI, gastroenteritis, AAA, incarcerated hernia, bowel obstruction, constipation, inflammatory bowel, hepatitis, peptic ulcer disease, splenic infarction, perforated viscus, vulvitis, ovarian torsion, PID, kidney stone, placenta abruption, this is not meant to be an all-inclusive list EKG interpreted by me (3pts min.). @ -As above X-rays interpreted by me (1pt min.). @ -None done CT interpreted by me (1pt min.). @ -CT abd and pelvis showing no acute intra-abdominal process. Multiple punct ate nonobstructing bilateral renal calculi. U/S interpreted by me (1pt. min.). @ -None done What testing was considered but not performed or refused? (CT, X-rays, U/S, labs)? Why? @ -None What meds were considered but not given or refused? Why? @ -None Did you discuss the management of the patient with other professionals (professionals i.e. , PA, POCKET BUILDER, lab, RT, psych nurse, manager social work, rotary cutter feeder, teacher, asset protection officer, case supervisor)? Give summary @ -No Was smoking cessation discussed for >3mins.? @ -No Was critical care preformed (if so, how long)? @ -No Were there social determinants of health that impacted care today? How? (Homelessness, low income, unemployed, alcoholism, drug addiction, transportation, low edu. Level, literacy, decrease access to med. care, correction, rehab)? @ -No Was there de-escalation of care discussed even if they declined (Discuss DNR or withdrawal of care, Hospice)? DNR status @ -No What co-morbidities impacted this encounter? (DM, HTN, Smoking, COPD, CAD, Cancer, CVA, ARF, Chemo, Hep., AIDS, mental health diagnosis, sleep apnea, morbid obesity)? @ -Hypertension, hyperlipidemia, renal disease Was patient admitted / discharged? Hospital course, mention meds given and route, prescriptions, significant lab abnormalities, going to OR and other pertinent info. @ -Discharge. 79-year-old female presented to ER for evaluation of urinary frequency, nausea and vomiting. Vital signs stable. Upon my evaluation, patient no signs of acute distress nontoxic-appearing.Laboratory studies obtained remarkable for WBC 6.01. Hemoglobin 15.6. Total bili 1.6, AST 39 this is believed to be due to dehydration given patient's decreased oral intake and fluid loss. Urinalysis with 8 WBCs and small leukocyte esterases concerning of infection. Urine will be sent for culture. CT abdomen pelvis showing no acute intra-abdominal process. Multiple punctate nonobstructing bilateral renal calculi noted. Patient provided with IV fluid bolus along with symptomatic control in the ER, with improvement. Upon reevaluation, patient resting comfortably on stretcher no signs of acute distress. Patient educated on today's findings, all questions answered. Admission was offered given patient's medical history for IV antibiotic treatment of UTI. Patient refused stating she feels well enough to go home. Patient tolerating oral intake with crackers and water. Patient will be discharged stable condition advised to follow-up closely with PCP. Continue nitrofurantoin as she has only has 3 doses at this time. Zofran prescribed. Patient did receive 1 g IV push Rocephin prior to discharge. Return parameters discussed. Patient discharged stable condition. Patient verbally expressed understand agree with care plan. Case discussed with ED attending, Dr. Ramsey. Undiagnosed new problem with uncertain prognosis? @ -No Drug Therapy requiring intensive monitoring for toxicity (Heparin, Nitro, Insulin, Cardizem)? @ -No Were any procedures done? @ -No Diagnosis/symptom? @ -UTI/nausea and vomiting Acute, or Chronic, or Acute on Chronic? @ -Acute Uncomplicated (without systemic symptoms) or Complicated (systemic symptoms)? @ -Complicated Side effects of treatment? @ -No Exacerbation, Progression, or Severe Exacerbation? @ -No Poses a threat to life or bodily function? How? (Chest pain, [place], [place], pneumonia, PE, COPD, DKA, ARF, appy, cholecystitis, CVA, Diverticulitis, Homicidal, Suicidal, threat to staff... and all critical care pts) @ -Low at this time - Lab Data Result diagrams: 08/19/24 13:51 08/19/24 13:51 Lab Results 08/19/24 08/19/24 08/19/24 Range/Units 13:51 13:51 13:51 WBC 6.01 (4.50-10.00) 10*3/uL RBC 5.03 (4.10-5.20) 10*6/uL Hgb 15.6 H (12.0-15.0) g/dL Hct 44.5 (37.2-46.3) % MCV 88.5 (80.0-97.0) fL MCH 31.0 (27.0-32.0) pg MCHC 35.1 (32.0-37.0) g/dL Plt Count 198 (140-440) 10*3/uL MPV 10.2 (9.5-12.2) fL Immature Gran % (Auto) 0.2 % Neutrophils % 66.6 % Lymphocytes % 20.0 % Monocytes % 11.1 % Eosinophils % 1.3 % Basophils % 0.8 % Immature Gran # 0.01 (0.00-0.04) 10*3/uL Neutrophils # 4.00 (1.80-7.70) 10*3/uL Lymphocytes # 1.20 (0.90-5.00) 10*3/uL Monocytes # 0.67 (0.20-1.00) 10*3/uL Eosinophils # 0.08 (0.04-0.35) 10*3/uL Basophils # 0.05 (0.00-0.10) 10*3/uL Sodium 140 (137-145) mmol/L Potassium 3.9 (3.5-5.1) mmol/L Chloride 108 H (98-107) mmol/L Carbon Dioxide 15 L (22-30) mmol/L Anion Gap 17 mmol/L BUN 16 (7-17) mg/dL Creatinine 0.63 (0.52-1.04) mg/dL Est GFR (CKD-EPI)AfAm >90 (>60 ml/min/1.73 sqM) Est GFR (CKD-EPI)NonAf 86 (>60 ml/min/1.73 sqM) Glucose 102 H (74-99) mg/dL Plasma Lactic Acid Rasta (0.7-2.0) mmol/L Calcium 9.2 (8.4-10.2) mg/dL Total Bilirubin 1.6 H (0.2-1.3) mg/dL AST 39 H (14-36) U/L ALT 17 (4-34) U/L Alkaline Phosphatase 104 (38-126) U/L Total Protein 7.7 (6.3-8.2) g/dL Albumin 4.8 (3.5-5.0) g/dL Lipase 63 (23-300) U/L Urine Color Light Red Urine Appearance Cloudy H (Clear) Urine pH 6.0 (5.0-8.0) Ur Specific [place] 1.016 (1.001-1.035) Urine Protein Trace H (Negative) Urine Glucose (UA) Negative (Negative) Urine Ketones 3+ H (Negative) Urine Blood Trace H (Negative) Urine Nitrite Negative (Negative) Urine Bilirubin Negative (Negative) Urine Urobilinogen <2.0 (<2.0) mg/dL Ur Leukocyte Esterase Small H (Negative) Urine RBC 2 (0-5) /hpf Urine WBC 8 H (0-5) /hpf Ur Squamous Epith Cells 4 (0-4) /hpf Urine Bacteria Rare H (None) /hpf Urine Mucus Rare H (None) /hpf 08/19/24 Range/Units 13:51 WBC (4.50-10.00) 10*3/uL RBC (4.10-5.20) 10*6/uL Hgb (12.0-15.0) g/dL Hct (37.2-46.3) % MCV (80.0-97.0) fL MCH (27.0-32.0) pg MCHC (32.0-37.0) g/dL Plt Count (140-440) 10*3/uL MPV (9.5-12.2) fL Immature Gran % (Auto) % Neutrophils % % Lymphocytes % % Monocytes % % Eosinophils % % Basophils % % Immature Gran # (0.00-0.04) 10*3/uL Neutrophils # (1.80-7.70) 10*3/uL Lymphocytes # (0.90-5.00) 10*3/uL Monocytes # (0.20-1.00) 10*3/uL Eosinophils # (0.04-0.35) 10*3/uL Basophils # (0.00-0.10) 10*3/uL Sodium (137-145) mmol/L Potassium (3.5-5.1) mmol/L Chloride (98-107) mmol/L Carbon Dioxide (22-30) mmol/L Anion Gap mmol/L BUN (7-17) mg/dL Creatinine (0.52-1.04) mg/dL Est GFR (CKD-EPI)AfAm (>60 ml/min/1.73 sqM) Est GFR (CKD-EPI)NonAf (>60 ml/min/1.73 sqM) Glucose (74-99) mg/dL Plasma Lactic Acid Rasta 1.6 (0.7-2.0) mmol/L Calcium (8.4-10.2) mg/dL Total Bilirubin (0.2-1.3) mg/dL AST (14-36) U/L ALT (4-34) U/L Alkaline Phosphatase (38-126) U/L Total Protein (6.3-8.2) g/dL Albumin (3.5-5.0) g/dL Lipase (23-300) U/L Urine Color Urine Appearance (Clear) Urine pH (5.0-8.0) Ur Specific [place] (1.001-1.035) Urine Protein (Negative) Urine Glucose (UA) (Negative) Urine Ketones (Negative) Urine Blood (Negative) Urine Nitrite (Negative) Urine Bilirubin (Negative) Urine Urobilinogen (<2.0) mg/dL Ur Leukocyte Esterase (Negative) Urine RBC (0-5) /hpf Urine WBC (0-5) /hpf Ur Squamous Epith Cells (0-4) /hpf Urine Bacteria (None) /hpf Urine Mucus (None) /hpf - EKG Data -: EKG Interpreted by Me EKG Comments: EKG taken at 14: 45 showing sinus rhythm. Inverted T waves lead III. No ST segment elevations or depressions. Ventricular rate 93, [place] interval 191, QRS duration 86, QT/QTc 377/428. - Radiology Data Radiology results: report reviewed, image reviewed Disposition Clinical Impression: UTI (urinary tract infection) Disposition: HOME SELF-CARE Condition: Stable Instructions (If sedation given, give patient instructions): Urinary Tract Infection in Women (ED) Additional Instructions: Continue nitrofurantoin. You may take Zofran as needed for nausea. Follow-up closely with PCP. Return to the ER for any new or worsening concerns. Prescriptions: Ondansetron Odt [Zofran Odt] 4 mg PO Q8HR PRN #10 tab PRN Reason: Nausea Is patient prescribed a controlled substance at d/c from ED?: No Referrals: Eliz Mckeon MD [Primary Care Provider] - 1-2 days Time of Disposition: 16:37
[2024-08-19 14:00] LABS: Basophils # (A) 0.05 10*3/uL (0.00-0.10); Basophils % (A) 0.8 %; Eosinophils # (A) 0.08 10*3/uL (0.04-0.35); Eosinophils % (A) 1.3 %; HCT 44.5 % (37.2-46.3); HGB 15.6 g/dL (12.0-15.0); Lymphocytes # (A) 1.20 10*3/uL (0.90-5.00); Lymphocytes % (A) 20.0 %; MCH 31.0 pg (27.0-32.0); MCHC 35.1 g/dL (32.0-37.0); MCV 88.5 fL (80.0-97.0); Monocytes # (A) 0.67 10*3/uL (0.20-1.00); Monocytes % (A) 11.1 %; Neutrophils # (A) 4.00 10*3/uL (1.80-7.70); Neutrophils % (A) 66.6 %; Platelet Count 198 10*3/uL (140-440); RBC 5.03 10*6/uL (4.10-5.20); RDW 13.4 % (11.5-14.5); WBC 6.01 10*3/uL (4.50-10.00)
[2024-08-19 14:31] LABS: ALT 17 U/L (4-34); African American GFR (CKD) >90 (>60 ml/min/1.73 sqM); Albumin 4.8 g/dL (3.5-5.0); Anion Gap 17 mmol/L; Blood Urea Nitrogen 16 mg/dL (7-17); Calcium 9.2 mg/dL (8.4-10.2); Carbon Dioxide 15 mmol/L (22-30); Chloride 108 mmol/L (98-107); Glucose 102 mg/dL (74-99); Lipase 63 U/L (23-300); Non-African American GFR(CKD) 86 (>60 ml/min/1.73 sqM); Sodium 140 mmol/L (137-145); Total Protein 7.7 g/dL (6.3-8.2)
[2024-08-19 14:41] LABS: Bacteria,Urine Rare /hpf; Bilirubin,Urine Negative (Negative); Blood,Urine Trace (Negative); Color,Urine Light Red; Glucose,Urine (UA) Negative (Negative); Ketones,Urine 3+ (Negative); Leukocyte Esterase,Urine Small (Negative); Mucus,Urine Rare /hpf; Nitrite,Urine Negative (Negative); PH, Urine 6.0 (5.0-8.0); Potassium 3.9 mmol/L (3.5-5.1); Protein,Urine Trace (Negative); RBC,Urine 2 /hpf (0-5); Specific Gravity,Urine 1.016 (1.001-1.035); Squamous Epithelial Cell,Urine 4 /hpf (0-4); Urobilinogen,Urine <2.0 mg/dL (<2.0); WBC,Urine 8 /hpf (0-5)
[2024-08-19 14:42] LABS: AST 39 U/L (14-36); Alkaline Phosphatase 104 U/L (38-126)
[2024-08-19] MEDS: ONDANSETRON 4 MG/2 ML VIAL IVP STA (14:51)
[2024-08-19] MEDS: SODIUM CHLORIDE 0.9% 1,000 ML IV ONE (14:52)
[2024-08-19] MEDS: ACETAMINOPHEN TAB 325 MG TAB PO STA (14:52)
[2024-08-19 16:04] VITALS: RESP 18
--- NOTE | 2024-08-19 16:09 | CT ---
EXAMINATION TYPE: CT abdomen pelvis wo con CT DLP: 480.3 mGycm, Automated exposure control for dose reduction was used. DATE OF EXAM: 08/19/2024 3:56 PM COMPARISON: CT abdomen and pelvis 06/11/2022 CLINICAL INDICATION:Female, 79 years old with history of lower abb pain/uti; UTI TECHNIQUE: Standard CT of the abdomen and pelvis without IV or oral contrast. Lack of IV or oral co ntrast limits evaluation of solid and hollow organ viscera. Coronal and sagittal reformats were perfo rmed. FINDINGS: LOWER CHEST: Mild cardiomegaly. Bilateral lower lobe dependent subsegmental atelectasis versus subple ural interstitial changes. ABDOMEN LIVER: Unremarkable noncontrast appearance. GALLBLADDER AND BILE DUCTS: Gallbladder is surgically absent with mild extra hepatic biliary dilatati on likely physiologic and a postcholecystectomy change. No evidence of choledocholithiasis. PANCREAS: Fatty atrophy. SPLEEN: Unremarkable noncontrast appearance. ADRENAL GLANDS: Unremarkable noncontrast appearance.. KIDNEYS AND URETERS: Pelvic left kidney. No hydronephrosis. Stable right renal 2.0 cm simple appearin g cyst. No follow up recommended. Multiple punctate nonobstructing bilateral renal calculi. PELVIS BLADDER: Incompletely distended but grossly unremarkable. No perivesicular fat stranding identified. REPRODUCTIVE: Unremarkable noncontrast appearance. ABDOMEN & PELVIS STOMACH AND BOWEL: Small hiatal hernia, duodenum is unremarkable. Postsurgical changes with anastomos is in the sigmoid region. Sigmoid diverticulosis without evidence for acute diverticulitis. No focal bowel wall thickening or surrounding inflammatory changes identified. The appendix is within normal l imits. No evidence of bowel obstruction. PERITONEUM: No evidence of pneumoperitoneum or free fluid. VASCULATURE: Mild atherosclerotic calcifications are present throughout the abdominal aorta and its b ranches. No evidence of aortic aneurysm. Pelvic phleboliths. MUSCULOSKELETAL: No acute osseous abnormalities. Increased lordotic appearance of the lumbar spine. S imilar scoliotic changes of the thoracolumbar spine with dextrocurvature of the visualized lower thor acolumbar spine. Anterior wedging of the T12 vertebral body redemonstrated. Multilevel degenerative d isc disease. LYMPH NODES: No gross evidence for lymphadenopathy. SOFT TISSUE/ABDOMINAL WALL: Infraumbilical ventral wall midline 2.1 cm hernia containing fat and a po rtion of nonobstructing small bowel. No inflammatory changes identified. IMPRESSION: 1. No CT evidence for acute abdominal/pelvic process. 2. Multiple punctate nonobstructing bilateral renal calculi. [facility], , 08/19/2024 4:06 PM
[2024-08-19] MEDS: cefTRIAXone IN SWFI 1,000 MG/10 ML SYRINGE IVP STA (17:02)
[2024-08-19 17:12] VITALS: BP 152/58; PULSE 82; TEMP 98.2
== END 2024-08-19 17:12 | disposition home or self-care (01) ==
LOC: EC 13:32
DX: N39.0 Urinary tract infection, site not specified (principal); E78.5 Hyperlipidemia, unspecified; I10 Essential (primary) hypertension; Z88.8 Allergy status to other drugs, medicaments and biological substances; Z87.448 Personal history of other diseases of urinary system; Z91.041 Radiographic dye allergy status
CPT/HCPCS: 36415; 93005; 80053; 83605; 83690; 85025; 81001; 87086; 74176; 99285; 96374; 96375; 96361; J2405; J0696